=== PATIENT | male | born 1950 | race Caucasian/White ===

== ENCOUNTER 2018-09-17 00:33 | Inpatient (IN) | payer MEDICARE, OTHER ==
[~2018-09-17] VITALS: Ht 180.3 cm; Wt 98.0 kg
--- NOTE | 2018-09-17 00:39 | ED.ADGEN ---
Past History Past Medical History: CAD, CHF, COPD, Dementia, Depression, GERD, Hypertension , Schizophrenia, Other Past Surgical History: Appendectomy, Other Adult General Chief Complaint Chief Complaint ".. They sent me over to get checked out...".." I feeling depressed... ".. " I wanted to come here.. ".. " I feeling anxious... and angry..." HPI HPI Patient is a 68 year old male who presents with above hx and complaints of depression, suicidal ideations, delusions. Pt. is a pt. of [facility]. Pt sent to ED for evaluation prior to admission to [facility]. Pt. has hx of Bipolar, Schizophrenia, Anxiety, PTSD, MDD, CHF, COPD, GERD, and Stage III Renal Dz. Pt. has hx multiple medical disorders. Pt. recently had appendectomy 08/2018. Pt. primary is Dr. Ortiz. Review of Systems Review of Systems Pt. only complaints is SI, Angry, depression, anxiety Constitutional: Denies fever or chills [] Eyes: Denies change in visual acuity, redness, or eye pain [] HENT: Denies nasal congestion or sore throat [] Respiratory: Denies cough or shortness of breath [] Cardiovascular: No additional information not addressed in HPI [] GI: Denies abdominal pain, nausea, vomiting, bloody stools or diarrhea [] : Denies dysuria or hematuria [] Musculoskeletal: Denies back pain or joint pain [] Integument: Denies rash or skin lesions [] Neurologic: Denies headache, focal weakness or sensory changes [] Endocrine: Denies polyuria or polydipsia [] All other systems were reviewed and found to be within normal limits, except as documented in this note. Family History Family History Non-contributory Current Medications Current Medications Current Medications Medications (Trade) Dose Ordered Sig/Princess Start Time Stop Time Status Last Admin Dose Admin Furosemide (Lasix) 40 mg 1X ONCE 09/17/18 02:30 09/17/18 03:20 DC 09/17/18 02:47 40 MG Lorazepam (Ativan) 2 mg 1X ONCE 09/17/18 02:00 09/17/18 03:20 DC Allergies Allergies Allergies Coded Allergies Type Severity Reaction Last Updated Verified chlorpromazine Allergy Unknown 09/17/18 Yes haloperidol Allergy Unknown 09/17/18 Yes levofloxacin Allergy Unknown 09/17/18 Yes Physical Exam Physical Exam Constitutional:moderately acute emotional distress, non-toxic appearance. [] HENT: Normocephalic, atraumatic, bilateral external ears normal, oropharynx moist, no oral exudates, nose normal. [] Eyes: PERRLA, EOMI, conjunctiva normal, no discharge. [] Neck: Normal range of motion, no tenderness, supple, no stridor. [] Cardiovascular:Bradycardia Heart rate regular rhythm, no murmur []PMI to Lt Lungs & Thorax: Bilateral breath sounds clear to auscultation [] Abdomen: Bowel sounds decreased, soft,mild distention, staple line tenderness, appears to be healing well.., no masses, no pulsatile masses. Skin: Warm, dry, no erythema, no rash. [] Back: No tenderness, no CVA tenderness. [] Extremities: No tenderness, no cyanosis, no clubbing, ROM intact, no edema. [] Arthritic changes. Neurologic: Alert and oriented X 3, normal motor function, normal sensory function, no focal deficits noted. [] Psychologic: Affect depressed, anxious, angry, complaints of hallucinations, and thoughts of suicide, . judgement appears to have some insight, mood depressed. ] Current Patient Data Vital Signs Vital Signs Date Time Temp Pulse Resp B/P (MAP) Pulse Ox O2 Delivery O2 Flow Rate FiO2 09/17/18 00:33 98.3 60 20 97 Room Air Lab Results Laboratory Tests Test 09/17/18 00:37 09/17/18 01:07 Urine Collection Type Unknown Urine Color Yellow Urine Clarity Clear Urine pH 5.5 Urine Specific [place] 1.010 Urine Protein 100 mg/dl (NEG-TRACE) Urine Glucose (UA) Neg mg/dL (NEG) Urine Ketones (Stick) Neg mg/dL (NEG) Urine Blood Neg (NEG) Urine Nitrite Neg (NEG) Urine Bilirubin Neg (NEG) Urine Urobilinogen Dipstick 0.2 mg/dL (0.2 mg/dL) Urine Leukocyte Esterase Neg (NEG) Urine RBC 0 /HPF (0-2) Urine WBC Occ /HPF (0-4) Urine Squamous Epithelial Cells Occ /LPF Urine Bacteria 0 /HPF (0-FEW) Urine Opiates Screen Pos (NEG) Urine Methadone Screen Neg (NEG) Urine Barbiturates Neg (NEG) Urine Phencyclidine Screen Neg (NEG) Urine Amphetamine/Methamphetamine Neg (NEG) Urine Benzodiazepines Screen Neg (NEG) Urine Cocaine Screen Neg (NEG) Urine Cannabinoids Screen Neg (NEG) Urine Ethyl Alcohol Neg (NEG) White Blood Count 9.3 x10^3/uL (4.0-11.0) Red Blood Count 2.60 x10^6/uL (4.30-5.70) L Hemoglobin 7.9 g/dL (13.0-17.5) L Hematocrit 23.1 % (39.0-53.0) L Mean Corpuscular Volume 89 fL (79-100) Mean Corpuscular Hemoglobin 30 pg (25-35) Mean Corpuscular Hemoglobin Concent 34 g/dL (31-37) Red Cell Distribution Width 13.7 % (11.5-14.5) Platelet Count 301 x10^3/uL (140-400) Neutrophils (%) (Auto) 73 % (31-73) Lymphocytes (%) (Auto) 16 % (24-48) L Monocytes (%) (Auto) 7 % (0-9) Eosinophils (%) (Auto) 4 % (0-3) H Basophils (%) (Auto) 1 % (0-3) Neutrophils # (Auto) 6.8 x10^3uL (1.8-7.7) Lymphocytes # (Auto) 1.5 x10^3/uL (1.0-4.8) Monocytes # (Auto) 0.6 x10^3/uL (0.0-1.1) Eosinophils # (Auto) 0.4 x10^3/uL (0.0-0.7) Basophils # (Auto) 0.1 x10^3/uL (0.0-0.2) Erythrocyte Sedimentation Rate 50 (0-15) H Prothrombin Time 10.2 SEC (9.4-11.4) Prothrombin Time INR 1.0 (0.9-1.1) PTT 39 SEC (23-33) H Sodium Level 131 mmol/L (136-145) L Potassium Level 4.9 mmol/L (3.5-5.1) Chloride Level 96 mmol/L (98-107) L Carbon Dioxide Level 29 mmol/L (21-32) Anion Gap 6 (6-14) Blood Urea Nitrogen 30 mg/dL (8-26) H Creatinine 1.8 mg/dL (0.7-1.3) H Estimated GFR (Cockcroft-Gault) 37.5 Glucose Level 108 mg/dL (70-99) H Calcium Level 8.6 mg/dL (8.5-10.1) Magnesium Level 1.3 mg/dL (1.8-2.4) L Total Bilirubin 0.2 mg/dL (0.2-1.0) Direct Bilirubin 0.1 mg/dL (0.0-0.2) Aspartate Amino Transferase (AST) 16 U/L (15-37) Alanine Aminotransferase (ALT) 16 U/L (16-63) Alkaline Phosphatase 62 U/L (46-116) Creatine Kinase 143 U/L (39-308) Troponin I Quantitative < 0.017 ng/mL (0-0.055) LH-Gco-C-Type Natriuretic Peptide 1859 pg/mL (0-124) H Total Protein 6.7 g/dL (6.4-8.2) Albumin 3.2 g/dL (3.4-5.0) L Lipase 119 U/L (73-393) Salicylates Level 2.2 mg/dL (2.8-20.0) L Salicylate Last Dose Date Unknown Salicylate Last Dose Time Unknown Acetaminophen Level < 2.0 mcg/mL (10-30) L Acetaminophen Last Dose Date Unknown Acetaminophen Last Dose Time Unknown EKG EKG My interpretation of EKG shows a sinus rhythm at 62 bpm. There is some leftward axis with bundle branch block. No findings acute STEMI with contralateral changes.[] Radiology/Procedures Radiology/Procedures My interpretation of acute abdomen film shows borderline cardiomegaly. Basilar scarring and increased cephalization consistent with CHF. No free air under the diaphragm. Does have increased stool throughout his colon. Has findings of midline incision. There are arthritic changes. There are findings of old rib fractures on right and left. [] Course & Med Decision Making Course & Med Decision Making Pertinent Labs and Imaging studies reviewed. (See chart for details) Admit Dr. Landa- [facility], Consult to Dr. Jenkins- Medical Issues. Note delay in charting due to computer locked/ malfunction [] Final Impression Final Impression 1. Suicidal Ideation 2. Depression 3. Delusions/ Hallucinations 4. Schizophrenia 5. Anemia 7.9 6. CHF- BNP 1859 7. Malnutrition Alb. 3.2 8. Hx. PTSD 9. Hx. of Appendectomy 08/2018 10. Hypomagnesium 1,3 11. Anxiety Disorder 12. Elevated Bun/Creat. 30/1.8 Dragon Disclaimer Dragon Disclaimer This electronic medical record was generated, in whole or in part, using a voice recognition dictation system. JEISON CORTES MD Sep 17, 2018 00:39
[2018-09-17] MEDS ORDERED: ACET500T68 PO (01:13)
[2018-09-17] MEDS ORDERED: CLON1PAT3 TD (01:13)
[2018-09-17] MEDS ORDERED: ASPI1CPM6 PO (01:13)
[2018-09-17] MEDS ORDERED: CLON0.1T PO (01:13)
[2018-09-17] MEDS ORDERED: NICO1PAT25 TD (01:13)
[2018-09-17] MEDS ORDERED: TRAZ-86 PO (01:13)
[2018-09-17] MEDS ORDERED: CARV6.25 PO (01:13)
[2018-09-17] MEDS ORDERED: RISP1TAB43 PO (01:13)
[2018-09-17] MEDS ORDERED: PANT40TA3 PO (01:13)
[2018-09-17] MEDS ORDERED: MEMA10TA PO (01:13)
[2018-09-17] MEDS ORDERED: DULO60CA6 PO (01:13)
[2018-09-17] MEDS ORDERED: LEVE500T56 PO (01:13)
[2018-09-17] MEDS ORDERED: FLUT1AER IH (01:13)
[2018-09-17] MEDS ORDERED: HYDR-3165 PO (01:13)
[2018-09-17] MEDS ORDERED: NITR0.4T22 SL (01:13)
[2018-09-17] MEDS ORDERED: ESCITALOPRAM OX20 MG PO (01:13)
[2018-09-17] MEDS ORDERED: TRAZ-85 PO (01:13)
[2018-09-17] MEDS ORDERED: PATI8.4P PO (01:13)
[2018-09-17] MEDS ORDERED: ALBU2.5V5 NEB (01:13)
[2018-09-17] MEDS ORDERED: OLAN15TA3 PO (01:13)
[2018-09-17] MEDS ORDERED: TRAZ150T49 PO (01:13)
[2018-09-17] MEDS ORDERED: BENZ100C PO (01:13)
[2018-09-17 01:36] LABS: BASO # 0.1 x10^3/uL (0.0-0.2); BASO % 1 % (0-3); EOS # 0.4 x10^3/uL (0.0-0.7); EOS % 4 % (0-3); HEMATOCRIT 23.1 % (39.0-53.0); HEMOGLOBIN 7.9 g/dL (13.0-17.5); LYMPH # 1.5 x10^3/uL (1.0-4.8); LYMPH % 16 % (24-48); MEAN CORPUSCULAR HEMOGLOBIN 30 pg (25-35); MEAN CORPUSCULAR HGB CONC 34 g/dL (31-37); MEAN CORPUSCULAR VOLUME 89 fL (79-100); MONO # 0.6 x10^3/uL (0.0-1.1); MONO % 7 % (0-9); NEUT # 6.8 x10^3uL (1.8-7.7); NEUT % 73 % (31-73); PLATELET COUNT 301 x10^3/uL (140-400); RED CELL DISTRIBUTION WIDTH 13.7 % (11.5-14.5); WHITE BLOOD COUNT 9.3 x10^3/uL (4.0-11.0)
[2018-09-17 01:45] LABS: BACTERIA,URINE 0 /HPF (0-FEW); BILIRUBIN,URINE NEG (NEG); CLARITY,URINE CLEAR; COLOR,URINE YELLOW; GLUCOSE,URINE NEG (NEG); NITRITE,URINE NEG (NEG); RBC,URINE 0 /HPF (0-2); SQUAMOUS EPITHELIAL CELL,UR OCC /LPF; UROBILINOGEN,URINE 0.2 mg/dL (0.2 mg/dL); WBC,URINE OCC /HPF (0-4)
[2018-09-17 01:46] LABS: BARBITURATES NEG (NEG); BENZODIAZEPINES NEG (NEG); CANNABINOIDS NEG (NEG); COCAINE NEG (NEG); METHADONE NEG (NEG); OPIATES POS (NEG); PHENCYCLIDINE NEG (NEG)
[2018-09-17 01:47] LABS: AMPHETAMINE/METHAMPHETAMINE NEG (NEG)
[2018-09-17 01:55] LABS: ALBUMIN 3.2 g/dL (3.4-5.0); CALCIUM 8.6 mg/dL (8.5-10.1); CREATININE 1.8 mg/dL (0.7-1.3); DIRECT BILIRUBIN 0.1 mg/dL (0.0-0.2); GFR 37.5; MAGNESIUM 1.3 mg/dL (1.8-2.4); POTASSIUM 4.9 mmol/L (3.5-5.1); TOTAL BILIRUBIN 0.2 mg/dL (0.2-1.0); TOTAL PROTEIN 6.7 g/dL (6.4-8.2)
[2018-09-17] MEDS ORDERED: LORazepam 1 MG TABLET PO ONE (02:00)
[2018-09-17 02:01] LABS: ACETAMIN < 2.0 mcg/mL (10-30); SALIC 2.2 mg/dL (2.8-20.0)
[2018-09-17] MEDS ORDERED: FUROSEMIDE 40 MG TABLET PO ONE (02:30)
[2018-09-17 02:37] LABS: SEDIMENTATION RATE 50 (0-15)
[2018-09-17] MEDS ORDERED: MAGNESIUM HYDROXIDE 2,400 MG/30 ML ORAL.SUSP. PO ONE (03:00)
[2018-09-17] MEDS ORDERED: METHYL SALICYLATE/MENTHOL TOPICAL OINTMENT 29GM TUBE. TP PRN (03:30)
[2018-09-17] MEDS ORDERED: cloNIDine HCL 0.1 MG TABLET PO PRN (03:30)
[2018-09-17] MEDS ORDERED: BENZONATATE 100 MG CAPSULE. PO PRN (03:30)
[2018-09-17] MEDS ORDERED: NITROGLYCERIN SUBLINGUAL 0.4 MG BOTTLE OF 25. SL PRN (03:30)
[2018-09-17] MEDS ORDERED: ACETAMINOPHEN 500 MG TABLET PO PRN (03:30)
[2018-09-17] MEDS ORDERED: MAGNESIUM HYDROXIDE 2,400 MG/30 ML ORAL.SUSP. PO PRN (03:30)
[2018-09-17] MEDS ORDERED: traZODone 50 MG TABLET. PO PRN (03:30)
[2018-09-17] MEDS ORDERED: MAG HYDROX/AL HYDROX/SIMETH 30 ML ORAL.SUSP PO PRN (03:30)
[2018-09-17 04:20] VITALS: BP 178/80
[2018-09-17] MEDS: ALBUTEROL SULFATE 2.5 MG/3 ML NEBU. NEB SCH ×4 (08:00→20:16)
[2018-09-17] MEDS: BUDESONIDE 0.5 MG/2 ML NEBU NEB SCH ×2 (08:00→20:16)
--- NOTE | 2018-09-17 08:06 | RAD ---
EXAM: Frontal view of the chest, AP views of the abdomen in upright and supine positions. CLINICAL INDICATION: abdominal pain, nausea and vomiting COMPARISON: None. FINDINGS and IMPRESSION: The heart is not enlarged. Mediastinal and hilar contours are normal. Bilateral lung base patchy airspace opacities are seen, possibly atelectasis or consolidation. No pleural effusion or pneumothorax. Old posterolateral right rib fractures are seen (10 and 11). No abnormal small or large bowel dilatation. Large volume colonic stool content. Midline surgical skin luis miguel are seen No abnormal soft tissue mass effect. No suspicious calcifications are seen. No free intraperitoneal gas. Electronically signed by: James Gómez MD (09/17/2018 8:02 AM) [facility]
[2018-09-17] MEDS: DULoxetine HCL 60 MG CAPSULE.DR PO SCH (08:11)
[2018-09-17] MEDS: NICOTINE 14MG PATCH. TD SCH (08:11)
[2018-09-17] MEDS: NYSTATIN TOPICAL POWDER 15GM BOTTLE. TP SCH ×2 (08:11→22:02)
[2018-09-17] MEDS: PANTOPRAZOLE 40 MG TABLET. PO SCH (08:12)
[2018-09-17] MEDS: CARVEDILOL 6.25 MG TABLET PO SCH ×2 (08:12→17:47)
[2018-09-17] MEDS: risperiDONE 1 MG TABLET. PO SCH ×2 (08:12→19:40)
[2018-09-17] MEDS: CITALOPRAM 20 MG TABLET. PO SCH (08:12)
[2018-09-17] MEDS: ASPIRIN/DIPYRIDAMOLE 200/25MG CAP.ER.12H PO SCH ×2 (08:12→19:53)
[2018-09-17] MEDS: levETIRAcetam 500 MG TABLET PO SCH ×2 (08:12→19:40)
[2018-09-17] MEDS ORDERED: NICOTINE 21MG PATCH. TD SCH (09:00)
[2018-09-17] MEDS: NON FORMULARY ITEM (Patiromer Calcium Sorbitex (Veltassa) 8.4 GM) PO SCH (09:00)
[2018-09-17] MEDS ORDERED: NON FORMULARY ITEM (Fluticasone/Vilanterol (Breo Ellipta 100-25 Mcg Inh) 1 PUFF) IH SCH (09:00)
[2018-09-17] MEDS: HYDROcodone/APAP 5/325MG 1 TAB TABLET PO PRN ×2 (10:19→17:48)
[2018-09-17] MEDS ORDERED: ALBUTEROL SULFATE 2.5 MG/3 ML NEBU. NEB SCH (12:00)
--- NOTE | 2018-09-17 14:32 | EKG ---
[address] [address] Test Date: 2018-09-17 Test Time: 00:49:09 Pat Name: CHAGO SNYDER Department: Room: Gender: M Car Wiper: : [id number] Requested By: JEISON CORTES Order Number: [id number] Reading MD: Kosta Lovell Measurements Intervals [place] Rate: 62 P: 53 [place]: 142 QRS: -28 QRSD: 138 T: 62 QT: 408 QTc: 416 Interpretive Statements SINUS RHYTHM LEFTWARD AXIS RIGHT BUNDLE BRANCH BLOCK ABNORMAL ECG Electronically Signed On 09-17-2018 14:32:01 INSULATION BLOWER by Kosta Lovell
[2018-09-17 15:56] VITALS: BP 168/81
[2018-09-17 17:12] LABS: THYROXINE 7.1 ug/dL (4.5-12.0)
[2018-09-17] MEDS: MEMANTINE 10 MG TABLET. PO SCH (19:40)
[2018-09-17] MEDS: traZODone 150 MG TABLET. PO SCH (19:40)
[2018-09-17] MEDS: OLANZapine 7.5 MG TABLET PO SCH (19:40)
[2018-09-17] MEDS: MAGNESIUM OXIDE 400 MG TABLET PO SCH (19:40)
[2018-09-17] MEDS: traZODone 100 MG TABLET. PO SCH (19:44)
[2018-09-17 20:12] LABS: HEMOGLOBIN A1C 5.7 % (4.8-5.6)
--- NOTE | 2018-09-17 23:46 | CONS ---
DATE OF CONSULTATION: 09/17/2018 REASON FOR CONSULTATION: Medical management. HISTORY OF PRESENT ILLNESS: The patient is a 68-year-old male patient, a resident at [facility], who was admitted on account of making suicidal ideation statements and threatening to kill care home staff, all this in a background of schizoaffective disorder with mixed episode. The patient apparently had appendectomy done on 08/21/2018 and apparently was found to have underlying malignancy, for which he was supposed to see a surgeon at the [facility] on 09/22/2018; however, the appointment was postponed to 10/13/2018. However, the surgical team recommended that we could take the luis miguel out. When I questioned him, he denied any complaint. PAST MEDICAL HISTORY: Significant for congestive heart failure, COPD, gastroesophageal reflux disease, chronic kidney disease stage 3. He has also hyperkalemia, anemia, obstructive sleep apnea, epilepsy, hypertension, psoriasis, vitamin D deficiency. PAST PSYCHIATRIC HISTORY: Significant for schizophrenia bipolar, anxiety disorder, posttraumatic stress disorder and major depressive disorder. PAST SURGICAL HISTORY: Significant for acute abdomen, exploratory laparotomy and appendectomy. FAMILY HISTORY: Unremarkable. SOCIAL HISTORY: He is a resident at [facility]. He does not smoke, drink alcohol or recreational drug. REVIEW OF SYSTEMS: As per history of present illness. ALLERGIES: HE IS ALLERGIC TO CHLORPROMAZINE, HALOPERIDOL, LEVOFLOXACIN and THIOTHIXENE. MEDICATIONS: He is currently on following medications: He is on albuterol sulfate 2.5 mg by nebulizer 4 times a day, Nicoderm patch 14 mg topically daily, clonidine TTS 0.3 mg transdermal patch every once a week and clonidine 0.1 mg every 4 hours as needed, nitroglycerin 0.4 mg sublingually every 5 minutes x 3 for chest pain. He is on aspirin, dipyridamole 25/200 twice a day, carvedilol 6.25 mg twice a day with meals, hydrocodone/APAP 5/325 one tablet every 6 hours, Tylenol 650 mg every 6 hours, levetiracetam 500 mg twice a day, duloxetine for Cymbalta 60 mg daily, escitalopram oxalate 20 mg daily, trazodone 100 mg at bedtime, trazodone 150 mg at bedtime and trazodone 50 mg p.o. every 8 hours as needed. He is on olanzapine 15 mg at bedtime, risperidone 1 mg p.o. b.i.d., Namenda 10 mg at bedtime. He is on Veltassa 8.4 grams p.o. daily, benzonatate 100 mg every 8 hours, Breo Ellipta 1 puff once a day, Protonix 40 mg once a day. PHYSICAL EXAMINATION: GENERAL: When I examined him this afternoon, he was resting, slightly propped up in bed and is in no apparent respiratory distress. He was pale, not jaundice, cyanosis, or thyromegaly. No jugular venous distension. No limb edema. VITAL SIGNS: His heart rate was 80, blood pressure was 111/75, temperature was 98, respiratory rate was 18 and oxygen saturation was 99% on room air. HEAD, EYES, EARS, NOSE AND THROAT: Showed he is normocephalic, atraumatic. NECK: Supple. HEART: Showed normal first and second heart sounds. No gallop, rub or murmur. CHEST: Clear to auscultation. No crepitation or rhonchi. ABDOMEN: Distended, soft, nontender. No guarding or rigidity. No organomegaly. All hernial orifice intact. Bowel sounds normal. NEUROLOGIC: He was awake, alert, responding appropriately. All cranial nerves intact. He moves all extremities without difficulty, ambulates without assistance or assistive devices. LABORATORY WORK: Showed his white cell count to be 9300, hemoglobin 7.9, hematocrit 23, MCV 89 and platelet count of 301,000 with normal manual differential. His chemistry showed he has a low sodium with a serum sodium of 131, potassium 4.9, chloride 96, bicarbonate 29, anion gap of 6, BUN 30, creatinine 1.8, estimated GFR was 37 mL per minute, his glucose 108, calcium was 8.6, magnesium was 1.3. Total protein was 0.2. Total bilirubin, AST, ALT, alkaline phosphatase were normal. His total protein was 6.7, albumin was 3.2. His prothrombin time was 10.2, INR of 1, aPTT was 59. Urinalysis showed the urine was yellow, clear with a pH of 5.5, specific gravity of 1.010. There was a small amount of protein. The urine was negative for glucose, ketones, blood, nitrite and leukocyte esterase. There are no rbc's, no wbc's, and no bacteria. His toxicology screen showed that he is positive for opiates, but negative for all other drugs. He underwent acute abdomen series, which basically showed that the heart is not enlarged, mediastinal hilar contours are normal, bilateral lung base patchy, airspace opacities are seen, possibly atelectasis or consolidation, no pleural effusion or pneumothorax. Old posterolateral right rib fractures are seen. The patient has no abnormal small or large bowel dilatation, large volume colonic stool content midline, surgical skin luis miguel are seen. No abnormal soft tissue and mass effect. No suspicious calcifications are seen. No free intraperitoneal fluid or gas. So, all in all, the patient seems to be stable except that in his lab work, he has mild hyponatremia and marked hypomagnesemia. He has chronic kidney disease, creatinine 1.8 and mild protein-calorie malnutrition. He has also normochromic normocytic anemia. PLAN: My plan is to start him on magnesium oxide 400 mg 3 times a day. We will monitor his labs closely. He is also on multiple SSRI and newer antidepressant that might be contributing to his low hyponatremia. I do not see that he is on any diuretics that might explain why he is hypokalemia. Thank you, Dr. Landa for allowing me to participate in the care of this patient. CARLTON UGALDE MD DR: ARLYN/demetrius JOB#: [id number] / [id number]
[2018-09-18] MEDS: HYDROcodone/APAP 5/325MG 1 TAB TABLET PO PRN ×3 (00:27→17:06)
[2018-09-18 05:29] VITALS: BP 167/69
[2018-09-18] MEDS: ALBUTEROL SULFATE 2.5 MG/3 ML NEBU. NEB SCH ×4 (05:54→20:48)
[2018-09-18 06:43] LABS: BASO # 0.1 x10^3/uL (0.0-0.2); BASO % 0 % (0-3); EOS # 0.2 x10^3/uL (0.0-0.7); EOS % 1 % (0-3); HEMOGLOBIN 8.1 g/dL (13.0-17.5); LYMPH # 0.8 x10^3/uL (1.0-4.8); LYMPH % 6 % (24-48); MEAN CORPUSCULAR HEMOGLOBIN 30 pg (25-35); MEAN CORPUSCULAR HGB CONC 34 g/dL (31-37); MEAN CORPUSCULAR VOLUME 89 fL (79-100); MONO # 0.5 x10^3/uL (0.0-1.1); MONO % 4 % (0-9); NEUT # 11.2 x10^3uL (1.8-7.7); NEUT % 88 % (31-73); PLATELET COUNT 310 x10^3/uL (140-400); RED BLOOD COUNT 2.69 x10^6/uL (4.30-5.70); RED CELL DISTRIBUTION WIDTH 13.4 % (11.5-14.5); WHITE BLOOD COUNT 12.8 x10^3/uL (4.0-11.0)
[2018-09-18 06:55] LABS: CALCIUM 8.2 mg/dL (8.5-10.1); CREATININE 1.8 mg/dL (0.7-1.3); GFR 37.5; POTASSIUM 5.2 mmol/L (3.5-5.1)
[2018-09-18] MEDS: NICOTINE 14MG PATCH. TD SCH (07:50)
[2018-09-18] MEDS: PANTOPRAZOLE 40 MG TABLET. PO SCH (07:50)
[2018-09-18] MEDS: CARVEDILOL 6.25 MG TABLET PO SCH ×2 (07:51→17:53)
[2018-09-18] MEDS: risperiDONE 1 MG TABLET. PO SCH ×2 (07:51→19:18)
[2018-09-18] MEDS: MAGNESIUM OXIDE 400 MG TABLET PO SCH ×3 (07:51→19:18)
[2018-09-18] MEDS: CITALOPRAM 20 MG TABLET. PO SCH (07:51)
[2018-09-18] MEDS: NON FORMULARY ITEM (Patiromer Calcium Sorbitex (Veltassa) 8.4 GM) PO SCH (07:51)
[2018-09-18] MEDS: levETIRAcetam 500 MG TABLET PO SCH ×2 (07:51→19:18)
[2018-09-18] MEDS: ASPIRIN/DIPYRIDAMOLE 200/25MG CAP.ER.12H PO SCH ×2 (07:51→19:18)
[2018-09-18] MEDS: DULoxetine HCL 60 MG CAPSULE.DR PO SCH (07:51)
[2018-09-18] MEDS: NYSTATIN TOPICAL POWDER 15GM BOTTLE. TP SCH ×2 (07:52→19:18)
[2018-09-18] MEDS: BUDESONIDE 0.5 MG/2 ML NEBU NEB SCH ×2 (10:20→20:48)
--- NOTE | 2018-09-18 13:49 | PSYEV ---
DATE OF SERVICE: 09/17/2018 IDENTIFICATION: This 68-year-old male was admitted to unit 6 from [facility] because of threatening to kill himself and others, and then he chose to come to [facility]. CHIEF COMPLAINT: "I want to be in a safe place. I learned [facility] is good to stay. The patient also admits he had bad experience in the past from going to different hospital. The patient denies that he has any major problems." HISTORY OF PRESENT ILLNESS: The patient has a long history of psychiatric illness, diagnosis of schizophrenia, paranoid type and there has been multiple hospitalizations depending 5 years in [facility], multiple hospitalizations to [facility], he is also in [facility], [facility] in [place]. The patient states he has been a resident at the [facility] for 3 months. The patient apparently is not happy staying there. The patient is not admitting to having any visual or auditory hallucinations at this time, but he is very paranoid and suspicious. The patient also states he was diagnosed with a bipolar disorder, PTSD. The patient is also upset because recently he had an appendectomy, found out he has cancer and he has further followups and also is getting more upset, worried. The patient does admit to having problems with sleep. No change in his appetite. PAST PSYCHIATRIC HISTORY: Multiple hospitalizations in 1971. He has been gone through several stays in the hospital for long-term treatments up to 5 years in [facility]. The patient also has been at different nursing homes, not able to take care of his needs. CURRENT MEDICATIONS: Include citalopram, Cymbalta, olanzapine, risperidone, and trazodone. PAST MEDICAL HISTORY: The patient has a history of CHF, COPD, GERD, chronic kidney disease stage 3, hyperkalemia, anemia, obstructive sleep apnea, epilepsy, hypertension, psoriasis. CURRENT MEDICATIONS: Include aspirin, carvedilol, clonidine, Breo spray, Keppra, Namenda. He is also on nicotine patch. PSYCHOSOCIAL HISTORY: The patient unable to give much information from the past, stating there is psychiatric illness in the whole family. Father and brother both diagnosed with schizophrenia, paranoid type. The patient states she moved around the different states because his father was in the service. The patient has been in [place] for the past 30 years. The patient dropped out in the seventh grade, had difficulty in school. The patient is single. The patient denies of any abuse as a child. The patient denies any alcohol abuse at this time. MENTAL STATUS EXAMINATION: The patient appears to be of stated age, in ____ withdrawn. Poor eye contact. His behavior was appropriate except he was somewhat rigid. Decreased psychomotor activity, slow mentation. Speech was clear, monotone, decreased rate and rhythm. His affect ____. He is not depressed, but anxious, paranoid. Also having difficulty with his thinking, most likely disorganization of his thinking, having difficulty holding a conversation. The patient also is having issues with impulse control, has been aggressive, threatening staff that he will kill himself. He is oriented to his surroundings. His memory is not testable. The patient is distracted easily. The patient is exhibiting poor judgment, poor self-concern. The patient appears to be functioning on borderline level of intelligence. ASSETS: Fairly good health for his age. He is able to communicate, able to walk. WEAKNESSES: The patient has a long history of psychiatric illness. Also, noncompliant with the treatment. He has moved from different places, has been different placements, different [facility] hospitals. The patient's symptoms are not chronic. INITIAL TREATMENT PLAN: The patient is [facility]. The patient will go through lab work and also be seen by the primary care for physical exam. The patient will be seen by the psychiatrist daily. The patient will be encouraged to return to normal activities including individual therapy, group therapy, activity therapy. The patient will continue on his current medications including Keppra 500 mg b.i.d., Risperdal 1 mg b.i.d., citalopram 40 mg daily, Cymbalta 60 mg daily, carvedilol 6.25 mg b.i.d., albuterol inhaler, Protonix 40 mg daily. He is also on hydrocodone p.r.n. q.6 hours, clonidine 0.1 mg q.4 hours p.r.n. for hypertension, trazodone 50 mg at night p.r.n. for sleep. ESTIMATED LENGTH OF STAY: 7-10 days. JOHN STEWART MD DR: SWATI/demetrius JOB#: [id number] / [id number]
[2018-09-18 15:31] VITALS: BP 134/64
[2018-09-18] MEDS: OLANZapine 7.5 MG TABLET PO SCH (19:18)
[2018-09-18] MEDS: MEMANTINE 10 MG TABLET. PO SCH (19:18)
[2018-09-18] MEDS: traZODone 150 MG TABLET. PO SCH (19:18)
--- NOTE | 2018-09-18 19:23 | PN ---
DATE: 09/18/2018 SUBJECTIVE: The patient was seen today, met with the staff, chart reviewed. The patient has adjusted fairly well since admission. The patient has not presented with any major behavior problems and not made any threats towards the staff. The staff also reports he has been fairly cooperative and medication compliant. OBJECTIVE: VITAL SIGNS: Temperature 98.1, blood pressure 167/69, pulse 86, respirations 16, O2 sat 93%. Slept about 5 hours last night. The patient's appetite is fair. MEDICATIONS: Reviewed. Currently on clonidine patch weekly, trazodone 100 mg at night, olanzapine 15 mg at night, Namenda 10 mg at night, Keppra 500 mg b.i.d., Risperdal 1 mg b.i.d., citalopram 40 mg daily, Cymbalta 60 mg daily. The patient is also on carvedilol 6.25 mg b.i.d., albuterol inhaler, Protonix, nitroglycerin, trazodone 50 mg at night p.r.n. for sleep. LABORATORY DATA: The patient's lab reviewed. The patient's RBC was 2.69, white cell count was 12.8. The patient's hemoglobin A1c was 5.7. Sodium 133, potassium 5.2, BUN 31, creatinine 1.8, glucose 121, iron 26, TIBC 234, iron saturation 11. HOSPITAL COURSE: The patient is not presenting with any major physical problems. The patient was seen by Dr. Damion Jenkins and apparently, he was started on magnesium oxide 400 mg 3 times daily. The patient's hyponatremia will be monitored. ASSESSMENT: Schizophrenia, paranoid, chronic; post-traumatic stress disorder and history of major depression, single episode. Continue with the current treatment protocol. CLINTON LEBRON MD DR: ERIC/demetrius JOB#: [id number] / [id number]
[2018-09-18] MEDS: traZODone 100 MG TABLET. PO SCH (19:24)
[2018-09-19 05:25] VITALS: BP 117/72
[2018-09-19] MEDS: ALBUTEROL SULFATE 2.5 MG/3 ML NEBU. NEB SCH ×4 (05:46→19:55)
[2018-09-19] MEDS: ASPIRIN/DIPYRIDAMOLE 200/25MG CAP.ER.12H PO SCH ×2 (08:19→20:41)
[2018-09-19] MEDS: MAGNESIUM OXIDE 400 MG TABLET PO SCH ×3 (08:19→20:42)
[2018-09-19] MEDS: levETIRAcetam 500 MG TABLET PO SCH ×2 (08:19→20:42)
[2018-09-19] MEDS: NICOTINE 14MG PATCH. TD SCH (08:19)
[2018-09-19] MEDS: CITALOPRAM 20 MG TABLET. PO SCH (08:19)
[2018-09-19] MEDS: PANTOPRAZOLE 40 MG TABLET. PO SCH (08:20)
[2018-09-19] MEDS: risperiDONE 1 MG TABLET. PO SCH ×2 (08:20→20:42)
[2018-09-19] MEDS: NYSTATIN TOPICAL POWDER 15GM BOTTLE. TP SCH ×2 (08:20→20:42)
[2018-09-19] MEDS: NON FORMULARY ITEM (Patiromer Calcium Sorbitex (Veltassa) 8.4 GM) PO SCH (08:20)
[2018-09-19] MEDS: DULoxetine HCL 60 MG CAPSULE.DR PO SCH (08:22)
[2018-09-19] MEDS: CARVEDILOL 6.25 MG TABLET PO SCH ×2 (08:22→17:29)
[2018-09-19] MEDS: HYDROcodone/APAP 5/325MG 1 TAB TABLET PO PRN ×2 (09:49→15:45)
[2018-09-19] MEDS: BUDESONIDE 0.5 MG/2 ML NEBU NEB SCH ×2 (10:07→19:56)
[2018-09-19 17:04] VITALS: BP 134/80
[2018-09-19] MEDS: traZODone 100 MG TABLET. PO SCH (20:42)
[2018-09-19] MEDS: OLANZapine 7.5 MG TABLET PO SCH (20:42)
[2018-09-19] MEDS: traZODone 150 MG TABLET. PO SCH (20:42)
[2018-09-19] MEDS: MEMANTINE 10 MG TABLET. PO SCH (20:42)
--- NOTE | 2018-09-19 20:52 | PN ---
DATE: 09/19/2018 SUBJECTIVE: The patient was seen today, met with the staff, chart reviewed. The patient continues to have problems, mostly social withdrawal, unsteady gait and increased anxiety. OBJECTIVE: VITAL SIGNS: Temperature 97.7, blood pressure 117/72, pulse 68, respirations 20, O2 sat 94%. GENERAL: Slept about 8 hours last night. The patient's appetite has improved. CURRENT MEDICATIONS: The patient is currently on trazodone, olanzapine, Namenda, Keppra, Risperdal, citalopram, Cymbalta, and trazodone 50 mg at night p.r.n. for sleep. LABORATORY DATA: The patient's lab reviewed. ASSESSMENT: Schizophrenia, paranoid, chronic; posttraumatic stress disorder, also history of major depression, single episode. PLANS: Continue with the current treatment. CLINTON LEBRON MD DR: ERIC/demetrius JOB#: [id number] / [id number]
[2018-09-20] MEDS: ALBUTEROL SULFATE 2.5 MG/3 ML NEBU. NEB SCH ×4 (05:44→21:51)
[2018-09-20 06:25] VITALS: BP 155/74
[2018-09-20] MEDS: risperiDONE 1 MG TABLET. PO SCH ×2 (07:59→19:35)
[2018-09-20] MEDS: NICOTINE 14MG PATCH. TD SCH (07:59)
[2018-09-20] MEDS: CARVEDILOL 6.25 MG TABLET PO SCH ×2 (07:59→17:23)
[2018-09-20] MEDS: levETIRAcetam 500 MG TABLET PO SCH ×2 (07:59→19:35)
[2018-09-20] MEDS: PANTOPRAZOLE 40 MG TABLET. PO SCH (08:00)
[2018-09-20] MEDS: CITALOPRAM 20 MG TABLET. PO SCH (08:00)
[2018-09-20] MEDS: MAGNESIUM OXIDE 400 MG TABLET PO SCH ×3 (08:00→19:35)
[2018-09-20] MEDS: ASPIRIN/DIPYRIDAMOLE 200/25MG CAP.ER.12H PO SCH ×2 (08:00→19:34)
[2018-09-20] MEDS: DULoxetine HCL 60 MG CAPSULE.DR PO SCH (08:00)
[2018-09-20] MEDS: NYSTATIN TOPICAL POWDER 15GM BOTTLE. TP SCH ×2 (08:01→19:36)
[2018-09-20] MEDS: NON FORMULARY ITEM (Patiromer Calcium Sorbitex (Veltassa) 8.4 GM) PO SCH (08:05)
[2018-09-20] MEDS ORDERED: cloNIDine TTS-3 1 PATCH PATCH TD SCH (09:00)
[2018-09-20] MEDS: BUDESONIDE 0.5 MG/2 ML NEBU NEB SCH ×2 (12:21→21:51)
[2018-09-20] MEDS: HYDROcodone/APAP 5/325MG 1 TAB TABLET PO PRN ×2 (12:38→20:32)
[2018-09-20] MEDS ORDERED: LACTULOSE 20 GM/30 ML SOLUTION. PO ONE (13:15)
[2018-09-20] MEDS ORDERED: SODIUM POLYSTYRENE SULFONATE 15 GM/60 ML ORAL.SUSP. PO ONE (13:15)
[2018-09-20 16:05] VITALS: BP 160/80
[2018-09-20] MEDS: traZODone 100 MG TABLET. PO SCH (19:35)
[2018-09-20] MEDS: MEMANTINE 10 MG TABLET. PO SCH (19:35)
[2018-09-20] MEDS: traZODone 150 MG TABLET. PO SCH (19:35)
[2018-09-20] MEDS: OLANZapine 7.5 MG TABLET PO SCH (19:36)
--- NOTE | 2018-09-21 00:05 | PN ---
DATE: 09/20/2018 SUBJECTIVE: The patient was seen today, met with the staff, chart reviewed. The patient continues to show improvement, has some unsteady gait. Able to walk with the walker. OBJECTIVE: VITAL SIGNS: Temperature 92.8, blood pressure 155/74, pulse 70, respirations 16, O2 sat 93%. Slept about 6 hours last night. CURRENT MEDICATIONS: The patient's current medication includes trazodone, olanzapine, Namenda, Keppra, Risperdal, citalopram, Cymbalta, and trazodone 50 mg at night. The patient's lab reviewed. The patient is not having any side effects. ASSESSMENT: Schizophrenia, paranoid, chronic, posttraumatic stress disorder, history of major depression, single episode. PLAN: Continue with the treatment. CLINTON LEBRON MD DR: ERIC/demetrius JOB#: [id number] / [id number]
[2018-09-21 05:19] VITALS: BP 161/82
[2018-09-21] MEDS: ALBUTEROL SULFATE 2.5 MG/3 ML NEBU. NEB SCH ×4 (05:20→20:17)
[2018-09-21 07:18] LABS: CALCIUM 9.1 mg/dL (8.5-10.1); CREATININE 1.6 mg/dL (0.7-1.3); GFR 42.9; POTASSIUM 5.1 mmol/L (3.5-5.1)
[2018-09-21] MEDS: MAGNESIUM OXIDE 400 MG TABLET PO SCH ×3 (07:56→20:16)
[2018-09-21] MEDS: CITALOPRAM 20 MG TABLET. PO SCH (07:56)
[2018-09-21] MEDS: DULoxetine HCL 60 MG CAPSULE.DR PO SCH (07:56)
[2018-09-21] MEDS: risperiDONE 1 MG TABLET. PO SCH ×2 (07:57→20:16)
[2018-09-21] MEDS: CARVEDILOL 6.25 MG TABLET PO SCH ×2 (07:57→17:05)
[2018-09-21] MEDS: levETIRAcetam 500 MG TABLET PO SCH ×2 (07:57→20:16)
[2018-09-21] MEDS: NICOTINE 14MG PATCH. TD SCH (07:57)
[2018-09-21] MEDS: ASPIRIN/DIPYRIDAMOLE 200/25MG CAP.ER.12H PO SCH ×2 (07:57→20:16)
[2018-09-21] MEDS: PANTOPRAZOLE 40 MG TABLET. PO SCH (07:57)
[2018-09-21] MEDS: NYSTATIN TOPICAL POWDER 15GM BOTTLE. TP SCH ×2 (07:58→20:17)
[2018-09-21] MEDS: BUDESONIDE 0.5 MG/2 ML NEBU NEB SCH ×2 (08:00→20:17)
[2018-09-21] MEDS: NON FORMULARY ITEM (Patiromer Calcium Sorbitex (Veltassa) 8.4 GM) PO SCH (09:00)
[2018-09-21] MEDS: HYDROcodone/APAP 5/325MG 1 TAB TABLET PO PRN (15:23)
[2018-09-21 15:57] VITALS: BP 136/85
[2018-09-21] MEDS ORDERED: guaiFENesin DM 200MG/20MG 10 ML SYRUP PO PRN (16:15)
[2018-09-21] MEDS: MEMANTINE 10 MG TABLET. PO SCH (20:16)
[2018-09-21] MEDS: traZODone 150 MG TABLET. PO SCH (20:16)
[2018-09-21] MEDS: OLANZapine 7.5 MG TABLET PO SCH (20:16)
[2018-09-21] MEDS: traZODone 100 MG TABLET. PO SCH (20:16)
--- NOTE | 2018-09-22 00:05 | PN ---
DATE: 09/21/2018 SUBJECTIVE: The patient continues to show improvement. He is able to walk with a walker. OBSERVATION: VITAL SIGNS: Temperature 98.2, blood pressure 161/82, pulse 68. GENERAL: Slept about 4 hours last night. The patient is currently not presenting with any physical problems, not having any side effects. MEDICATIONS: The patient's current medications include trazodone, olanzapine, Namenda, Keppra, Risperdal, citalopram, Cymbalta, and trazodone 50 mg at night. LABORATORY DATA: The patient's lab reviewed. ASSESSMENT: Schizophrenia, paranoid, chronic, posttraumatic stress disorder, history of major depression single episode. CLINTON LEBRON MD DR: ERIC/demetrius JOB#: [id number] / [id number]
[2018-09-22] MEDS ORDERED: BUDE0.5A11 IH (02:02)
[2018-09-22] MEDS ORDERED: CITA40TA5 PO (02:03)
[2018-09-22] MEDS ORDERED: MAG-77 PO (02:04)
[2018-09-22] MEDS ORDERED: MAGN400T22 PO (02:05)
[2018-09-22] MEDS ORDERED: NYST15CR TP (02:05)
[2018-09-22] MEDS ORDERED: MAGN2400 PO (02:06)
[2018-09-22] MEDS ORDERED: METH29OI TP (02:08)
[2018-09-22] MEDS: ALBUTEROL SULFATE 2.5 MG/3 ML NEBU. NEB SCH ×2 (05:13→11:39)
[2018-09-22 05:29] VITALS: BP 170/79
[2018-09-22] MEDS: HYDROcodone/APAP 5/325MG 1 TAB TABLET PO PRN ×2 (05:42→12:19)
[2018-09-22] MEDS: CITALOPRAM 20 MG TABLET. PO SCH (08:26)
[2018-09-22] MEDS: ASPIRIN/DIPYRIDAMOLE 200/25MG CAP.ER.12H PO SCH (08:26)
[2018-09-22] MEDS: risperiDONE 1 MG TABLET. PO SCH (08:26)
[2018-09-22] MEDS: PANTOPRAZOLE 40 MG TABLET. PO SCH (08:27)
[2018-09-22] MEDS: NICOTINE 14MG PATCH. TD SCH (08:27)
[2018-09-22] MEDS: levETIRAcetam 500 MG TABLET PO SCH (08:27)
[2018-09-22 08:29] VITALS: BP 170/79
[2018-09-22] MEDS: MAGNESIUM OXIDE 400 MG TABLET PO SCH (08:29)
[2018-09-22] MEDS: CARVEDILOL 6.25 MG TABLET PO SCH (08:29)
[2018-09-22] MEDS: DULoxetine HCL 60 MG CAPSULE.DR PO SCH (08:29)
[2018-09-22] MEDS: NYSTATIN TOPICAL POWDER 15GM BOTTLE. TP SCH (09:00)
[2018-09-22] MEDS: BUDESONIDE 0.5 MG/2 ML NEBU NEB SCH (11:39)
--- NOTE | 2018-09-22 12:41 | PSYEV ---
DATE OF SERVICE: 09/17/2018 IDENTIFICATION: This 68-year-old male was admitted to unit 6 from [facility] because of threatening to kill himself and others, and then he chose to come to [facility]. CHIEF COMPLAINT: "I want to be in a safe place. I learned [facility] is good to stay. The patient also admits he had bad experience in the past from going to different hospital. The patient denies that he has any major problems." HISTORY OF PRESENT ILLNESS: The patient has a long history of psychiatric illness, diagnosis of schizophrenia, paranoid type and there has been multiple hospitalizations depending 5 years in [facility], multiple hospitalizations to [facility], he is also in [facility], [facility] in [place]. The patient states he has been a resident at the [facility] for 3 months. The patient apparently is not happy staying there. The patient is not admitting to having any visual or auditory hallucinations at this time, but he is very paranoid and suspicious. The patient also states he was diagnosed with a bipolar disorder, PTSD. The patient is also upset because recently he had an appendectomy, found out he has cancer and he has further followups and also is getting more upset, worried. The patient does admit to having problems with sleep. No change in his appetite. PAST PSYCHIATRIC HISTORY: Multiple hospitalizations in 1971. He has been gone through several stays in the hospital for long-term treatments up to 5 years in [facility]. The patient also has been at different nursing homes, not able to take care of his needs. CURRENT MEDICATIONS: Include citalopram, Cymbalta, olanzapine, risperidone, and trazodone. PAST MEDICAL HISTORY: The patient has a history of CHF, COPD, GERD, chronic kidney disease stage 3, hyperkalemia, anemia, obstructive sleep apnea, epilepsy, hypertension, psoriasis. CURRENT MEDICATIONS: Include aspirin, carvedilol, clonidine, Breo spray, Keppra, Namenda. He is also on nicotine patch. PSYCHOSOCIAL HISTORY: The patient unable to give much information from the past, stating there is psychiatric illness in the whole family. Father and brother both diagnosed with schizophrenia, paranoid type. The patient states she moved around the different states because his father was in the service. The patient has been in [place] for the past 30 years. The patient dropped out in the seventh grade, had difficulty in school. The patient is single. The patient denies of any abuse as a child. The patient denies any alcohol abuse at this time. MENTAL STATUS EXAMINATION: The patient appears to be of stated age, in ____ withdrawn. Poor eye contact. His behavior was appropriate except he was somewhat rigid. Decreased psychomotor activity, slow mentation. Speech was clear, monotone, decreased rate and rhythm. His affect ____. He is not depressed, but anxious, paranoid. Also having difficulty with his thinking, most likely disorganization of his thinking, having difficulty holding a conversation. The patient also is having issues with impulse control, has been aggressive, threatening staff that he will kill himself. He is oriented to his surroundings. His memory is not testable. The patient is distracted easily. The patient is exhibiting poor judgment, poor self-concern. The patient appears to be functioning on borderline level of intelligence. ASSETS: Fairly good health for his age. He is able to communicate, able to walk. WEAKNESSES: The patient has a long history of psychiatric illness. Also, noncompliant with the treatment. He has moved from different places, has been different placements, different [facility]. The patient's symptoms are not chronic. INITIAL TREATMENT PLAN: The patient is admitted to the [facility]. The patient will go through lab work and also be seen by the primary care for physical exam. The patient will be seen by the psychiatrist daily. The patient will be encouraged to return to normal activities including individual therapy, group therapy, activity therapy. The patient will continue on his current medications including Keppra 500 mg b.i.d., Risperdal 1 mg b.i.d., citalopram 40 mg daily, Cymbalta 60 mg daily, carvedilol 6.25 mg b.i.d., albuterol inhaler, Protonix 40 mg daily. He is also on hydrocodone p.r.n. q.6 hours, clonidine 0.1 mg q.4 hours p.r.n. for hypertension, trazodone 50 mg at night p.r.n. for sleep. ESTIMATED LENGTH OF STAY: 7-10 days. VELLORE KIRUBAKARAN, MD DR: ERIC/demetrius JOB#: [id number] / [id number]
--- NOTE | 2018-09-24 12:33 | DS ---
DATE OF DISCHARGE: ADMITTING DIAGNOSES: AXIS I: 1. Schizophrenia, paranoid, chronic. 2. Posttraumatic stress disorder. 3. History of major depression, single episode. AXIS II: None. AXIS III: 1. Congestive heart failure. 2. Chronic obstructive pulmonary disease. 3. Gastroesophageal reflux disease. 4. Chronic kidney disease stage 3. 5. Anemia. 6. Obstructive sleep apnea. 7. Seizure disorder. 8. Hypertension. 9. Psoriasis. REASON FOR ADMISSION: This 68-year-old male has a long history of psychiatric illness, diagnosis of schizophrenia, paranoid type and multiple hospitalizations including 5 years in [facility] and also in [facility]. HOSPITAL COURSE: The patient has been noncompliant with the treatment. The patient's first hospitalization was in 1971. The patient's medications included trazodone 100 mg at night, olanzapine 15 mg at night, Namenda 10 mg at night, Keppra 500 mg b.i.d., Risperdal 1 mg b.i.d., citalopram 40 mg daily, Cymbalta 60 mg daily. The patient was also on carvedilol 6.25 mg b.i.d., Protonix and also trazodone p.r.n. The patient did improve, able to show some insight to his problems. The patient was accepting of the discharge plan. The patient was returned to [facility] with the recommendation to continue the medications that was treated here. The patient was medically stable. The patient was not expressing any suicidal or homicidal thoughts. CLINTON LEBRON MD DR: ERIC/demetrius JOB#: [id number] / [id number]
== END 2018-09-22 12:50 | DRG 885 ==
LOC: ER 00:33 → GEROPSY 02:50
PROVIDERS: ADMIT Psychiatry & Neurology Psychiatry; ATTEND Psychiatry & Neurology Psychiatry
DX: F20.0 Paranoid schizophrenia (principal); E87.1 Hypo-osmolality and hyponatremia; I13.0 Hypertensive heart and chronic kidney disease with heart failure and stage 1 through stage 4 chronic kidney disease, or unspecified chronic kidney disease; R45.851 Suicidal ideations; E44.1 Mild protein-calorie malnutrition; F03.90 Unspecified dementia, unspecified severity, without behavioral disturbance, psychotic disturbance, mood disturbance, and anxiety; F31.9 Bipolar disorder, unspecified; F43.12 Post-traumatic stress disorder, chronic; G40.909 Epilepsy, unspecified, not intractable, without status epilepticus; G47.33 Obstructive sleep apnea (adult) (pediatric); L40.9 Psoriasis, unspecified; I25.10 Atherosclerotic heart disease of native coronary artery without angina pectoris; I50.9 Heart failure, unspecified; J44.9 Chronic obstructive pulmonary disease, unspecified; D64.9 Anemia, unspecified; E83.42 Hypomagnesemia; K21.9 Gastro-esophageal reflux disease without esophagitis; N18.3 Chronic kidney disease, stage 3 (moderate); Z55.9 Problems related to education and literacy, unspecified; Z79.899 Other long term (current) drug therapy; Z81.8 Family history of other mental and behavioral disorders; Z90.49 Acquired absence of other specified parts of digestive tract; Z91.19 Patient's noncompliance with other medical treatment and regimen; Z88.8 Allergy status to other drugs, medicaments and biological substances; Z68.30 Body mass index [BMI] 30.0-30.9, adult
CPT/HCPCS: 36415; 74022; 80048; 80061; 80076; 80307; 81001; 82306; 82550; 82607; 83036; 83540; 83550; 83690; 83735; 83880; 84436; 84443; 84480; 84484; 85025; 85610; 85651; 85730; 86592; 93005; 94640; G0480; G6039; J7613; J7626; 82003; 99285-25

== ENCOUNTER 2019-03-14 15:44 | Inpatient (IN) | payer MEDICARE, OTHER ==
[~2019-03-14] VITALS: Ht 177.8 cm; Wt 91.2 kg
[~2019-03-14 15:44] MED LIST: ACET500T68 PO; ALBU2.5V5 NEB; ASPI1CPM6 PO; BENZ100C PO; BUDE0.5A11 IH; CARV6.25 PO; CITA40TA5 PO; CLON0.1T PO; CLON1PAT3 TD; DULO60CA6 PO; ESCITALOPRAM OX20 MG PO; FLUT1AER IH; HYDR-3165 PO; LEVE500T56 PO; MAG-77 PO; MAGN2400 PO; MAGN400T22 PO; MEMA10TA PO; METH29OI TP; NICO1PAT25 TD; NITR0.4T22 SL; NYST15CR TP; OLAN15TA3 PO; PANT40TA3 PO; PATI8.4P PO; RISP1TAB43 PO; TRAZ-120 PO; TRAZ-86 PO; TRAZ150T49 PO
--- NOTE | 2019-03-14 16:41 | PHYS DOC ---
Past History Past Medical History: Anemia, Bipolar, CAD, CHF, Dementia, GERD, Seizure, Schizophrenia, Other (ABA REDD DO) Past Surgical History: Other (ABA REDD DO) Smoking: Cigarettes, Less than 1pk/day Additional Smoking Information: 1/2 PACK/DAY Alcohol Use: None Drug Use: None (ABA REDD DO) Adult General Chief Complaint Chief Complaint: PSYCH EVALUATION HPI HPI Patient is a 68-year-old male presents for clearance for [facility]. At the facility where he normally resides he heard voices arguing in his head. According to document sent with the patient, voices told him to leave the facility, and go to the gas station. They're also telling him to walk in front of a moving vehicle. Patient denies any suicidal or homicidal ideation. Patient denies any visual hallucinations. Patient denies any recent changes in his medication.[] (ABA REDD DO) Review of Systems Review of Systems Constitutional: Denies fever or chills [] Eyes: Denies change in visual acuity, redness, or eye pain [] HENT: Denies nasal congestion or sore throat [] Respiratory: Denies cough or shortness of breath [] Cardiovascular: No chest pain or palpitations[] GI: Denies abdominal pain, nausea, vomiting, bloody stools or diarrhea [] : Denies dysuria or hematuria [] Musculoskeletal: Denies back pain or joint pain [] Integument: Denies rash or skin lesions [] Neurologic: Denies headache, focal weakness or sensory changes [] Endocrine: Denies polyuria or polydipsia [] All other systems were reviewed and found to be within normal limits, except as documented in this note. (ABA REDD DO) Allergies Allergies Allergies Coded Allergies Type Severity Reaction Last Updated Verified chlorpromazine Allergy Unknown 03/14/19 Yes haloperidol Allergy Unknown 03/14/19 Yes levofloxacin Allergy Unknown 03/14/19 Yes thiothixene Allergy Unknown 03/14/19 Yes (ABA REDD DO) Physical Exam Physical Exam Constitutional: Well developed, well nourished, no acute distress, non-toxic appearance. [] HENT: Normocephalic, atraumatic, bilateral external ears normal, oropharynx moist, no oral exudates, nose normal. [] Eyes: PERRLA, EOMI, conjunctiva normal, no discharge. [] Neck: Normal range of motion, no tenderness, supple, no stridor. [] Cardiovascular:Heart rate regular rhythm, no murmur [] Lungs & Thorax: Bilateral breath sounds clear to auscultation [] Abdomen: Bowel sounds normal, soft, no tenderness, no masses, no pulsatile masses. [] Skin: Warm, dry, no erythema, no rash. [] Back: No tenderness, no CVA tenderness. [] Extremities: No tenderness, no cyanosis, no clubbing, ROM intact, no edema. [] Neurologic: Alert and oriented X 3, normal motor function, normal sensory function, no focal deficits noted. Resting tremor is noted [] Psychologic: Affect flat, judgement normal, mood normal. Patient denies any suicidal or homicidal ideations. Patient denies any visual hallucinations. Auditory hallucinations are as noted in the history of present illness[] ([facility]) Current Patient Data Vital Signs Vital Signs Date Time Temp Pulse Resp B/P (MAP) Pulse Ox O2 Delivery O2 Flow Rate FiO2 03/14/19 15:55 97.9 69 20 97 Room Air ([facility]) EKG EKG EKG shows a sinus rhythm at 67 bpm, left axis deviation at -50, right bundle branch block, QTC is 453 ms, no ST elevations.[] ([facility]) Radiology/Procedures Radiology/Procedures [] ([facility]) Course & Med Decision Making Course & Med Decision Making Pertinent Labs and Imaging studies reviewed. (See chart for details) ED course: Patient arrived, was placed in bed, and tolerated exam well. After the return of the laboratory studies that showed low sodium and low magnesium, did not feel that he was appropriate for [facility] admission initially and needed to have his electrolytes replaced. Consultation was made with hospitalist service who graciously accepted. Patient was admitted in improved condition. At approximately 1735, patient had a run of V. tach. That was self-limited. Patient denies any chest pain. Patient was started on amiodarone infusion. Cardiac enzymes were ordered. The hospitalist was reengaged and we elected to admit the patient to the ICU. Repeat EKG obtained at 174 shows a sinus rhythm, 74 bpm, left axis deviation at -39, QTC of 482 ms, no ST elevations.If he didn't change from his previous EKG today. Further review of the rhythm strip has a secondary lead been knees. His V. tach may be due to his tremor of the left arm that was resting on the right lead. Going to hold the amiodarone at this time pending and additional confirmatory run of V. tach while continuing to replace his electrolytes. Medical decision making: Patient here for medical clearance for [facility] unit. Given the low sodium and low magnesium, electing to admit the patient for replacement of these electrolytes prior to being admitted to [facility]. After the run of V. tach, patient is being admitted to the ICU.[] (ABA REDD DO) Course & Med Decision Making 1800- Sign out received from Dr. Redd for patient previously admitted to Dr. Jenkins awaiting admission. Patient was pending troponin at time of sign out. Follow-up performed by myself with negative initial troponin noted. I did not otherwise care for patient, nor did I perform a physical exam. Agree with continued plan for admission. (NELLIE BROWNE DO) Dragon Disclaimer Dragon Disclaimer This electronic medical record was generated, in whole or in part, using a voice recognition dictation system. (ABA REDD DO) Departure Departure: Impression: Primary Impression: Hyponatremia Additional Impressions: Hypomagnesemia Auditory hallucinations Schizophrenia Disposition: ADMITTED INPATIENT Admitting Physician: Damion Jenkins (ABA REDD DO) Condition: IMPROVED Referrals: CINDY LANCASTER DO (PCP) Problem Qualifiers Additional Impressions: Schizophrenia Schizophrenia type: unspecified Qualified Codes: F20.9 - Schizophrenia, unspecified BAA REDD DO March 14, 2019 16:41 NELLIE BROWNE DO March 14, 2019 19:12
[2019-03-14 16:45] LABS: BASO # 0.1 x10^3/uL (0.0-0.2); BASO % 1 % (0-3); EOS # 0.2 x10^3/uL (0.0-0.7); EOS % 3 % (0-3); HEMOGLOBIN 11.1 g/dL (13.0-17.5); LYMPH # 0.7 x10^3/uL (1.0-4.8); LYMPH % 10 % (24-48); MEAN CORPUSCULAR HEMOGLOBIN 30 pg (25-35); MEAN CORPUSCULAR HGB CONC 35 g/dL (31-37); MEAN CORPUSCULAR VOLUME 87 fL (79-100); MONO # 0.7 x10^3/uL (0.0-1.1); MONO % 10 % (0-9); NEUT # 5.4 x10^3uL (1.8-7.7); NEUT % 76 % (31-73); PLATELET COUNT 140 x10^3/uL (140-400); RED BLOOD COUNT 3.69 x10^6/uL (4.30-5.70); RED CELL DISTRIBUTION WIDTH 15.7 % (11.5-14.5); WHITE BLOOD COUNT 7.1 x10^3/uL (4.0-11.0)
[2019-03-14 17:02] LABS: ALBUMIN 3.7 g/dL (3.4-5.0); ALBUMIN/GLOBULIN RATIO 1.4 (1.0-1.7); CREATININE 1.4 mg/dL (0.7-1.3); GFR 50.1; MAGNESIUM 1.6 mg/dL (1.8-2.4); POTASSIUM 4.4 mmol/L (3.5-5.1); TOTAL BILIRUBIN 0.2 mg/dL (0.2-1.0); TOTAL PROTEIN 6.4 g/dL (6.4-8.2)
--- NOTE | 2019-03-14 17:04 | EKG ---
[address] [address] Test Date: 2019-03-14 Test Time: 16:10:51 Pat Name: CHAGO SNYDER Department: Room: Gender: M Deliverer Outside: STARLA : 1950 Requested By: ABA MOHAN Order Number: [id number] Reading MD: Measurements Intervals [place] Rate: 67 P: 28 KS: 150 QRS: -50 QRSD: 142 T: 20 QT: 426 QTc: 453 Interpretive Statements SINUS RHYTHM ABNORMAL LEFT AXIS DEVIATION LEFT ANTERIOR FASCICULAR BLOCK RIGHT BUNDLE BRANCH BLOCK BIFASCICULAR BLOCK ABNORMAL ECG RI6.01 No previous ECG available for comparison
[2019-03-14 17:14] LABS: BACTERIA,URINE 0 /HPF (0-FEW); BILIRUBIN,URINE NEG (NEG); CLARITY,URINE CLEAR; COLOR,URINE AMBER; GLUCOSE,URINE NEG (NEG); HYALINE CASTS, URINE OCC /HPF; NITRITE,URINE NEG (NEG); RBC,URINE 0 /HPF (0-2); SQUAMOUS EPITHELIAL CELL,UR OCC /LPF; UROBILINOGEN,URINE 0.2 mg/dL (0.2 mg/dL); WBC,URINE 0 /HPF (0-4)
[2019-03-14] MEDS ORDERED: MAGNESIUM SULFATE 2GM 50 ML IV ONE (17:15)
[2019-03-14] MEDS ORDERED: IV NORMAL SALINE 1,000ML 1,000 ML IV ONE (17:15)
[2019-03-14] MEDS: IV NORMAL SALINE 1,000ML 1,000 ML IV SCH (17:19)
[2019-03-14] MEDS ORDERED: ONDANSETRON PF 4 MG/2 ML VIAL. IV PRN (17:30)
[2019-03-14] MEDS ORDERED: ACETAMINOPHEN 325 MG TABLET PO PRN (17:30)
[2019-03-14] MEDS ORDERED: AMIODARONE 150 MG in IV DEXTROSE 5% 100 ML IVP ONE (17:45)
[2019-03-14] MEDS ORDERED: AMIODARONE 900 MG in IV DEXTROSE 5% 500 ML IV PRN (18:00)
--- NOTE | 2019-03-14 18:45 | NUR ---
Admission note The patient, CHAGO SNYDER, 68 y/o, M admitted by CARLTON UGALDE MD, was given written information regarding hospital policies, unit procedures and contact persons. Patient arrived to room 125 via gurney from ED. Patient failed medical clearance to [facility] due to low sodium and magnesium. Patient reports active auditory hallucinations. Patient denies desire for self harm or suicidal ideation. Oriented to unit and routines, patient voiced understanding. Call light in reach, bed locked in lowest position. Valuables were checked and logged. Patient had 2 lighters, a $1 bill, and a wander guard bracelet which were bagged and locked in med room..
[2019-03-14 19:58] VITALS: BP 148/78
[2019-03-14] MEDS ORDERED: IPRA3AMP29 NEB (20:28)
[2019-03-14] MEDS ORDERED: RISP1TAB43 PO (20:45)
[2019-03-14] MEDS ORDERED: RISP0.5T24 PO (20:45)
[2019-03-14] MEDS ORDERED: RISP2TAB33 PO (20:45)
[2019-03-14] MEDS ORDERED: LEVE500T56 PO (20:45)
[2019-03-14] MEDS ORDERED: RIVA1PAT23 TD (20:45)
[2019-03-14] MEDS ORDERED: TRAZ150T49 PO (20:45)
[2019-03-14] MEDS ORDERED: ROFL500T7 PO (20:45)
[2019-03-14] MEDS ORDERED: CARV6.25 PO (20:45)
[2019-03-14] MEDS ORDERED: ATROVENT NS (20:45)
[2019-03-14] MEDS ORDERED: HYDR-2145 PO (20:45)
[2019-03-14] MEDS ORDERED: PRIM50TA24 PO (20:45)
[2019-03-14] MEDS ORDERED: OMEP20CA9 PO (20:45)
[2019-03-14] MEDS ORDERED: PANTOPRAZOLE 40 MG TABLET. PO SCH (21:00)
[2019-03-14] MEDS: IPRATRPIUM/ALBUTEROL 0.5/2.5MG 3 ML NEBU. NEB SCH (21:00)
[2019-03-14] MEDS: IPRATROPIUM BROMIDE 0.06% NASAL SPRAY 15ML BOTTLE NS SCH (21:00)
[2019-03-14] MEDS: traZODone 150 MG TABLET. PO SCH (21:00)
[2019-03-14] MEDS: risperiDONE 2 MG TABLET. PO SCH (22:03)
[2019-03-14] MEDS: levETIRAcetam 500 MG TABLET PO SCH (22:04)
[2019-03-14] MEDS: PRIMIDONE 50 MG TABLET PO SCH (22:04)
[2019-03-14 22:59] VITALS: BP 133/65
[2019-03-15] MEDS: IV NORMAL SALINE 1,000ML 1,000 ML IV SCH ×3 (00:13→13:19)
[2019-03-15 05:15] VITALS: BP 129/76
[2019-03-15] MEDS: IPRATRPIUM/ALBUTEROL 0.5/2.5MG 3 ML NEBU. NEB SCH ×2 (05:26→11:26)
[2019-03-15 06:53] LABS: CALCIUM 8.3 mg/dL (8.5-10.1); CREATININE 1.1 mg/dL (0.7-1.3); GFR 66.2; POTASSIUM 3.9 mmol/L (3.5-5.1)
[2019-03-15 07:05] LABS: BASO # 0.1 x10^3/uL (0.0-0.2); BASO % 1 % (0-3); EOS # 0.2 x10^3/uL (0.0-0.7); EOS % 3 % (0-3); HEMATOCRIT 29.1 % (39.0-53.0); HEMOGLOBIN 10.2 g/dL (13.0-17.5); LYMPH # 0.7 x10^3/uL (1.0-4.8); LYMPH % 14 % (24-48); MEAN CORPUSCULAR HEMOGLOBIN 30 pg (25-35); MEAN CORPUSCULAR HGB CONC 35 g/dL (31-37); MEAN CORPUSCULAR VOLUME 86 fL (79-100); MONO # 0.5 x10^3/uL (0.0-1.1); MONO % 10 % (0-9); NEUT # 3.7 x10^3uL (1.8-7.7); NEUT % 72 % (31-73); PLATELET COUNT 125 x10^3/uL (140-400); RED BLOOD COUNT 3.39 x10^6/uL (4.30-5.70); RED CELL DISTRIBUTION WIDTH 15.6 % (11.5-14.5); WHITE BLOOD COUNT 5.1 x10^3/uL (4.0-11.0)
[2019-03-15] MEDS ORDERED: risperiDONE 1 MG TABLET. PO SCH (08:00)
[2019-03-15] MEDS ORDERED: CARVEDILOL 12.5 MG TABLET PO SCH (08:00)
[2019-03-15] MEDS ORDERED: hydroCHLOROthiazide 25 MG TABLET PO SCH (09:00)
[2019-03-15] MEDS ORDERED: RIVASTIGMINE 9.5MG PATCH. TD SCH (09:00)
[2019-03-15] MEDS ORDERED: ROFLUMILAST 500 MCG TABLET PO SCH (09:00)
[2019-03-15] MEDS: IPRATROPIUM BROMIDE 0.06% NASAL SPRAY 15ML BOTTLE NS SCH (09:01)
[2019-03-15] MEDS: risperiDONE 2 MG TABLET. PO SCH (09:02)
[2019-03-15] MEDS: traZODone 150 MG TABLET. PO SCH (09:04)
[2019-03-15] MEDS: levETIRAcetam 500 MG TABLET PO SCH (09:04)
[2019-03-15] MEDS: PRIMIDONE 50 MG TABLET PO SCH ×2 (09:06→14:00)
[2019-03-15 10:49] VITALS: BP 153/75
[2019-03-15 15:30] VITALS: BP 181/90
--- NOTE | 2019-03-15 15:32 | SSS ---
ADMIT DATE: 03/15/2019 HISTORY OF PRESENT ILLNESS: The patient is a 68-year-old male patient, a resident at [facility], who apparently . DICTATION ENDS HERE CARLTON UGALDE MD DR: ARLYN/demetrius JOB#: [id number] / [id number]
--- NOTE | 2019-03-15 15:58 | SSS ---
ADMIT DATE: 03/15/2019 HISTORY OF PRESENT ILLNESS: The patient is a 68-year-old male patient, a resident at [facility], who apparently went to the gas station as his voices told him to leave the facility and told him to walk in front of a moving vehicle. This is apparently on account of a background of his schizophrenia and therefore, the patient was sent to [facility] for inpatient psychiatric stabilization. He was seen in the Emergency Room of [facility] and evaluation there showed that he was hyponatremic and hypomagnesemic. His serum sodium is down to 126 and magnesium was down to 1.6 and in fact, while at the Emergency Room, he developed a nonsustained episode of ventricular tachycardia and he was given IV magnesium and his heart rate has reverted to sinus rhythm and was admitted to [address] [place] [address] and continued on IV normal saline and oral magnesium. PAST MEDICAL HISTORY: Significant for coronary artery disease, gastroesophageal reflux disease, congestive heart failure, anemia. He is also known to have bipolar disorder and schizophrenia. PAST SURGICAL HISTORY: Unremarkable. ALLERGIES: HE IS ALLERGIC TO CHLORPROMAZINE, HALOPERIDOL, LEVOFLOXACIN, AND THIOTHIXENE. MEDICATIONS: He is currently on following medications: He is on rivastigmine for Exelon patch 9.5 mg 24 hour 1 patch transdermal daily, ipratropium bromide, albuterol sulfate 0.5/2.5 mg in 3 mL by nebulizer 3 times a day, albuterol sulfate by nebulizer 4 times a day. He is on NicoDerm CQ 14 mg topically daily, clonidine patch 0.3 mg every Thursday. He is also on clonidine 0.1 mg every 4 hours as needed, nitroglycerin 0.4 mg sublingually every 5 minutes x 3. He is on aspirin dipyridamole 25/200 extended release one capsule twice a day, carvedilol 6.25 mg twice a day, hydrocodone/APAP 5/325 one tablet every 6 hours, Tylenol 500 mg every 6 hours, primidone 25 mg 3 times a day, Keppra 500 mg twice a day, citalopram hydrobromide 40 mg once a day, duloxetine for Cymbalta 60 mg daily, trazodone 100 mg at bedtime, trazodone 50 mg every 8 hours, and olanzapine for Zyprexa 15 mg at bedtime, risperidone 1 mg p.o. b.i.d. and risperidone 2 mg at bedtime, Namenda 10 mg at bedtime, patiromer calcium sorbitex for Veltassa 8.4 grams p.o. daily for hyperkalemia, hydrochlorothiazide 25 mg daily, benzonatate 100 mg every 8 hours as needed, budesonide 0.5 mg in 2 mL by nebulizer twice a day. He is on Breo Ellipta 1 puff daily, Daliresp 500 mcg daily, Maalox 15 mL after meals, magnesium oxide 400 mg 3 times a day, milk of magnesia 30 mL p.o. daily p.r.n. for constipation, Protonix 40 mg once a day, nystatin cream applied topically 3 times a day and Atrovent twice a day. PHYSICAL EXAMINATION: GENERAL: On arrival to the Emergency Room, he looked well and was clearly in no apparent respiratory distress. He was slightly pale, but no jaundice, cyanosis, or thyromegaly. No jugular venous distension. No lower limb edema. VITAL SIGNS: His heart rate was 69, blood pressure 157/88, temperature was 97.9, respiratory rate 20, and oxygen saturation was 97%. HEAD, EYES, EARS, NOSE AND THROAT: Showed normocephalic, atraumatic. NECK: Supple. HEART: Showed normal first and second heart sounds with no gallop, rub or murmur. CHEST: Clear to auscultation. No crepitation or rhonchi. ABDOMEN: Distended, soft, nontender. No guarding or rigidity. No organomegaly. All hernial orifices intact. Bowel sounds normal. NEUROLOGIC: He is awake, alert, responding appropriately. All cranial nerves intact. He moves extremities without difficulty. He continued to hear voices, although they are not telling him to do anything to harm himself. LABORATORY DATA: His lab work on arrival showed a white cell count 7100, hemoglobin 11, hematocrit 32, MCV 87, and platelet count of 140,000. Serum sodium was 129, potassium 4.4, chloride 92, bicarbonate 25, anion gap of 9, BUN 27, creatinine 1.4, estimated GFR was 50 mL per minute, his glucose was 82, calcium was 9, magnesium was 1.6. His total bilirubin, AST, ALT, alkaline phosphatase were normal. Total protein was 6.4, albumin was 3.7. Serum iron, TIBC and iron saturation are all low consistent with anemia of chronic disease. His urinalysis showed the urine was clear with a pH of 5, specific gravity of 1.020. There was moderate amount of protein. The urine was negative for glucose. There was trace of ketones, negative for blood, nitrite and leukocyte esterase. There are no rbc's, no wbc's and no bacteria. ASSESSMENT AND PLAN: The patient was basically admitted and received 2 g of magnesium sulfate in the Emergency Room, was started on IV normal saline. We held his hydrochlorothiazide and when I saw him this afternoon, he looked well and was clearly in no apparent respiratory distress. No pallor or jaundice, cyanosis, or thyromegaly. No jugular venous distension. No lower limb edema. His heart rate was 76, blood pressure was 153/75, temperature was 98.2, respiratory rate was 20, and oxygen saturation was 94% on room air. The rest of clinical examination is stable and has not really changed. His lab work this afternoon showed that his white cell count was 5100, hemoglobin 10.2, hematocrit 29, MCV 86 and platelet count of 125,000. His chemistry showed that his sodium has improved to 131, potassium 3.9, chloride 97, bicarbonate 26, anion gap of 8, BUN 22, creatinine 1.1, estimated GFR was 66 mL per minute. His glucose was 92, calcium was 8.3, magnesium was 1.8. He was transferred to [facility] to continue on all his medication. I did discontinue his hydrochlorothiazide, added magnesium oxide 400 mg 3 times a day. FINAL DISCHARGE DIAGNOSES: Hyponatremia, improving; hypomagnesemia, improving; acute kidney injury, improving. His creatinine came down from 1.4 to 1.1. The patient has multiple other medical problems including hypertension, chronic obstructive pulmonary disease, seizure disorder, and gastroesophageal reflux disease. CARLTON UGALDE MD DR: ARLYN/demetrius JOB#: [id number] / [id number]
--- NOTE | 2019-03-15 16:08 | NUR ---
Discharge Note: CHAGO SNYDER [address] Discharge instructions and discharge home medications reviewed with Other facility and a copy given. All questions have been answered and understanding verbalized. The following instructions and handouts were given to Marleny GASTON on [facility]. Discontinued lines and drains IV in left hand, tip in tact, pressure dressing applied. No signs and symptoms of infection present. Patient transferred to [facility] at 1600. Patient ambulated independently accompanied by staff to [facility]. Educated patient on reason for transfer to [facility], patient verbally verified understanding of education received.
[2019-03-15] MEDS ORDERED: MAGN400T22 PO (17:48)
[2019-03-15] MEDS ORDERED: ACET325T9 PO (17:48)
== END 2019-03-15 16:23 | DRG 640 ==
LOC: ER 15:44 → MERGE 18:05 → 1 SOUTH 18:05
PROVIDERS: ADMIT Internal Medicine; ATTEND Internal Medicine
DX: E87.1 Hypo-osmolality and hyponatremia (principal); N17.0 Acute kidney failure with tubular necrosis; I47.2 Ventricular tachycardia; E83.42 Hypomagnesemia; F03.90 Unspecified dementia, unspecified severity, without behavioral disturbance, psychotic disturbance, mood disturbance, and anxiety; F20.9 Schizophrenia, unspecified; F31.9 Bipolar disorder, unspecified; G40.909 Epilepsy, unspecified, not intractable, without status epilepticus; I11.0 Hypertensive heart disease with heart failure; I25.10 Atherosclerotic heart disease of native coronary artery without angina pectoris; I50.9 Heart failure, unspecified; J44.9 Chronic obstructive pulmonary disease, unspecified; K21.9 Gastro-esophageal reflux disease without esophagitis; F17.210 Nicotine dependence, cigarettes, uncomplicated
CPT/HCPCS: 36415; 80048; 80053; 81001; 83540; 83550; 83735; 84484; 85025; 87641; 93005; 94640; 96365; J3475; J7620; 99285-25; J7030

== ENCOUNTER 2019-03-15 16:35 | Inpatient (IN) | payer MEDICARE, OTHER ==
[~2019-03-15] VITALS: Ht 180.3 cm; Wt 92.1 kg
[~2019-03-15 16:35] MED LIST changes: +ATROVENT NS; +HYDR-2145 PO; +IPRA3AMP29 NEB; +OMEP20CA9 PO; +PRIM50TA24 PO; +RISP0.5T24 PO; +RISP2TAB33 PO; +RIVA1PAT23 TD; +ROFL500T7 PO
[2019-03-15 17:06] VITALS: BP 175/105
[2019-03-15] MEDS ORDERED: ACETAMINOPHEN 325 MG TABLET PO PRN ×2 (17:15→18:45)
[2019-03-15] MEDS ORDERED: ACET325T9 PO (17:48)
[2019-03-15] MEDS ORDERED: MAGN400T22 PO (17:48)
[2019-03-15] MEDS ORDERED: MAG HYDROX/AL HYDROX/SIMETH 30 ML ORAL.SUSP PO PRN (18:00)
[2019-03-15] MEDS ORDERED: METHYL SALICYLATE/MENTHOL TOPICAL OINTMENT 29GM TUBE. TP PRN (18:00)
[2019-03-15] MEDS ORDERED: MAGNESIUM HYDROXIDE 2,400 MG/30 ML ORAL.SUSP. PO PRN (18:00)
[2019-03-15] MEDS: PRIMIDONE 50 MG TABLET PO SCH (19:56)
[2019-03-15] MEDS: levETIRAcetam 500 MG TABLET PO SCH (19:56)
[2019-03-15] MEDS: MAGNESIUM OXIDE 400 MG TABLET PO SCH (19:56)
[2019-03-15] MEDS: risperiDONE 2 MG TABLET. PO SCH (19:56)
[2019-03-15] MEDS: traZODone 150 MG TABLET. PO SCH (20:20)
[2019-03-15] MEDS: IPRATRPIUM/ALBUTEROL 0.5/2.5MG 3 ML NEBU. NEB SCH (21:00)
[2019-03-15] MEDS: IPRATROPIUM BROMIDE 0.06% NASAL SPRAY 15ML BOTTLE NS SCH (21:00)
[2019-03-16] MEDS: IPRATRPIUM/ALBUTEROL 0.5/2.5MG 3 ML NEBU. NEB SCH ×3 (05:35→20:43)
[2019-03-16 06:13] VITALS: BP 153/73
[2019-03-16 06:19] LABS: BASO % 1 % (0-3); EOS # 0.2 x10^3/uL (0.0-0.7); EOS % 5 % (0-3); HEMATOCRIT 30.7 % (39.0-53.0); HEMOGLOBIN 10.6 g/dL (13.0-17.5); LYMPH # 0.8 x10^3/uL (1.0-4.8); LYMPH % 18 % (24-48); MEAN CORPUSCULAR HEMOGLOBIN 30 pg (25-35); MEAN CORPUSCULAR HGB CONC 35 g/dL (31-37); MEAN CORPUSCULAR VOLUME 86 fL (79-100); MONO # 0.3 x10^3/uL (0.0-1.1); MONO % 7 % (0-9); NEUT # 3.3 x10^3uL (1.8-7.7); NEUT % 69 % (31-73); PLATELET COUNT 136 x10^3/uL (140-400); RED BLOOD COUNT 3.59 x10^6/uL (4.30-5.70); RED CELL DISTRIBUTION WIDTH 15.6 % (11.5-14.5); WHITE BLOOD COUNT 4.8 x10^3/uL (4.0-11.0)
[2019-03-16 06:36] LABS: CALCIUM 8.5 mg/dL (8.5-10.1); CREATININE 0.9 mg/dL (0.7-1.3); GFR 83.4; MAGNESIUM 1.5 mg/dL (1.8-2.4); POTASSIUM 3.7 mmol/L (3.5-5.1); TOTAL BILIRUBIN 0.3 mg/dL (0.2-1.0); TOTAL PROTEIN 5.9 g/dL (6.4-8.2)
[2019-03-16] MEDS: NICOTINE 14MG PATCH. TD SCH ×2 (09:00→09:42)
[2019-03-16] MEDS: MAGNESIUM OXIDE 400 MG TABLET PO SCH ×3 (09:35→20:28)
[2019-03-16] MEDS: levETIRAcetam 500 MG TABLET PO SCH ×2 (09:35→20:29)
[2019-03-16] MEDS: PRIMIDONE 50 MG TABLET PO SCH ×3 (09:36→20:29)
[2019-03-16] MEDS: ROFLUMILAST 500 MCG TABLET PO SCH (09:36)
[2019-03-16] MEDS: risperiDONE 1 MG TABLET. PO SCH ×2 (09:41→16:12)
[2019-03-16] MEDS: CARVEDILOL 12.5 MG TABLET PO SCH ×2 (09:41→16:13)
[2019-03-16] MEDS: RIVASTIGMINE 9.5MG PATCH. TD SCH (09:41)
[2019-03-16] MEDS: PANTOPRAZOLE 40 MG TABLET. PO SCH (09:41)
[2019-03-16] MEDS: IPRATROPIUM BROMIDE 0.06% NASAL SPRAY 15ML BOTTLE NS SCH ×2 (12:11→20:30)
[2019-03-16 16:26] VITALS: BP 163/80
[2019-03-16 19:06] LABS: THYROXINE 5.4 ug/dL (4.5-12.0)
[2019-03-16 19:14] LABS: THYROID STIM HORMONE (TSH) 1.548 uIU/mL (0.358-3.740)
[2019-03-16] MEDS: traZODone 150 MG TABLET. PO SCH (20:28)
[2019-03-16] MEDS: risperiDONE 2 MG TABLET. PO SCH (20:29)
--- NOTE | 2019-03-16 21:45 | HP ---
ADMIT DATE: 03/15/2019 HISTORY OF PRESENT ILLNESS: A 68-year-old gentleman. He is on the [facility]. The patient was brought in to the [facility]al Unit as he was hearing voices and the voices were telling him to leave this facility where he was stationed or where he was living. The patient denies any suicidal or homicidal ideations or visual hallucinations. The patient denies any change in medications. He does have trouble breathing and they also found out that the patient felt that the voices were telling him to walk out in front of a moving vehicle. Fortunately, he was brought into the Emergency Room where he was evaluated, found to have sodium was somewhat low and they gave him some normal saline and he seems to be a little bit better according to staff. PAST MEDICAL HISTORY: Includes anemia, bipolar disease, coronary artery disease, CHF, dementia, GERD, seizures, schizophrenia, congestive heart failure, history of pneumonia, sleep apnea, appendectomy, stage 3 renal disease, incontinence, degenerative arthritis, psychiatric problems including schizophrenia, paranoid ideation, panic disorder, depression, PTSD, previous suicide attempt. He has also had a history of anemia and problems. ALLERGIES: HE HAS ALLERGIES TO CHLORPROMAZINE, ALBUTEROL, LEVOFLOXACIN AND THIOTHIXENE. CURRENT MEDICATIONS: Includes he takes breathing treatments 4 times a day, Exelon 9.5 mg every 24 hours, Coreg 6.25 b.i.d., Tylenol, Mysoline 25 p.o. t.i.d., Keppra 500 mg p.o. b.i.d., trazodone 150 mg at bedtime, risperidone 1 mg p.o. b.i.d., risperidone 2 mg at bedtime, Daliresp 500 mcg p.o. daily, magnesium oxide 400 mg t.i.d., Protonix 40 and Atrovent 2 sprays b.i.d. SOCIAL HISTORY: Apparently, he has a history of smoking in the past, has about 40-50 pack year history of smoking, possibly drinking in the past, but nothing recent. The patient is a DNR. FAMILY HISTORY: Unremarkable. REVIEW OF SYSTEMS: The patient outside of his shortness of breath, denies chest pain, does have an interesting tremor noted and contractures to his left arm and hand. He claims this was only started in the last 3-4 months. When I asked the nursing staff, they thought that he had already had a CT of his head, but Neurology is being consulted on that. I do not see any other records in the chart for this; however, may be done at another institution. The patient otherwise is more concerned obviously about his breathing and he does have breathing problems. PHYSICAL EXAMINATION: GENERAL: This is a pleasant white male, looking somewhat older than 68-year-old gentleman, not well kempt. VITAL SIGNS: Blood pressure 163/80, respiratory rate 20, pulse 64, afebrile, oxygen saturation is good. HEENT: The patient's head was atraumatic, normocephalic. Eyes were PERRLA. No jaundice. Mouth and throat: Poor dentition. NECK: Supple. There is no JVD. Carotid bruits obvious. LUNGS: Did show rhonchi with inspiration and expiration with a few wheezes in between. CARDIOVASCULAR: Regular sinus rhythm, S1, S2. ABDOMEN: Protuberant, soft, nontender. EXTREMITIES: Without clubbing, cyanosis, nor edema and the peripheral, however, his left arm showed a contracture flexion as well as some contracture of the hand and he had a shaking tremor, one of this was present for a long time or in the last 4 months, it is hard to say. The patient's reflexes were brisk. Again, ____ will review this and make his timely suggestions. NEUROLOGIC: Otherwise, the patient is alert. He seems to converse fairly well with spontaneous speech. Concerned about his breathing and content of speech was adequate. LABORATORY DATA: The patient's hemoglobin was 10.6 and hematocrit 30, platelets were just a smidgen low at 136, probably related to his medications. His sodium apparently in the Emergency Room was 126, they got up to 129. His magnesium was low at 1.5 and he is on Slow-Mag for that. His BUN and creatinine were stable at 15 and 0.9. His iron was low at 41. His vitamin D level was low at 20. His TSH was normal, although his T3 was slightly low at 66. I did his cholesterol and that was within range for a man his age. His albumin was slightly low. Liver enzymes were low. UA was not obtained. Check for syphilis was negative. IMPRESSION: Schizoaffective disorder, auditory hallucinations. We will have Dr. Landa obviously follow that in his usual professional way. Medically obviously, the patient needs to continue be monitored on his low sodium, which may be syndrome of inappropriate antidiuretic hormone, may be related to some of the medications. He takes as antipsychotics are well known to cause the situation of low sodium. His breathing problems with exacerbation of chronic obstructive pulmonary disease with marked rhonchi and wheezing, we will increase his breathing treatments every 6 hours and then p.r.n. albuterol treatments in between. The patient should get a chest x-ray and earlier UA with micro. Otherwise as noted, he has anemia of 10.6 and 30, probably related to iron deficiency, probably poor dietary intake of iron supplementation, but seems to be stable in that regard. Otherwise, the patient continued to be monitored and Dr. Jenkins will follow along for his other medical issues. JOHN STEWART MD DR: SWATI/demetrius JOB#: [id number] / [id number]
[2019-03-16] MEDS: ALBUTEROL SULFATE 2.5 MG/3 ML NEBU. NEB PRN (22:06)
--- NOTE | 2019-03-17 01:54 | PSYEV ---
DATE OF SERVICE: 03/15/2019 REASON FOR ADMISSION: This 68-year-old male was admitted from [facility] through the Emergency Room to [facility] Unit at [facility]. The patient apparently has been experiencing voices, which are command in nature, telling him to go to the gas station, telling him to walk in front of a car. The patient states he could not explain why he started hearing voices all of a sudden and losing control and currently denies of having any auditory hallucinations. HISTORY OF PRESENT ILLNESS: The patient apparently was treated briefly at [facility] in [place] in late January 2019 because of the similar problems. The patient apparently has been having problems with psychotic episodes and behavior problems. The patient has a long history of psychiatric illness and diagnosed with schizophrenia, paranoid type and apparently had multiple hospitalizations including 5 years in [facility], multiple hospitalizations to [facility]. He was also on [facility] and also [facility] in [place]. The patient has been a resident at the [facility] recently and in the past, he was at [facility] for almost 3 months. The patient at that time was not happy being there, wanted to move to a different place. The patient is known to be very paranoid and suspicious. He was also diagnosed in the past with the bipolar disorder, PTSD. The patient also tends to worry a lot, worried about his physical complaints. PAST PSYCHIATRIC HISTORY: The patient has been in and out of [facility] since 1971. He had a long-term treatment up to 5 years in [facility]. The patient has been to different alf. The patient's current medication that he was to be taking at the alf included Exelon patch 9.5 ____ 24-hour, hydrochlorothiazide 25 mg daily, Mysoline 50 mg 1/2 tablet 3 times a day. The patient was also on Risperdal 0.5 mg twice a day for schizophrenia and Risperdal 1 mg twice a day. PAST MEDICAL HISTORY: The patient has a history of CHF, COPD, GERD, chronic kidney disease stage 3, hyperkalemia, anemia, obstructive sleep apnea, epilepsy, hypertension, and psoriasis. The patient also has been on citalopram, Cymbalta, olanzapine, and trazodone in the past. PSYCHOSOCIAL HISTORY: The patient is unable to give much information from the past. FAMILY PSYCHIATRIC HISTORY: Apparently, there is a family history of schizophrenia, including his father and brother diagnosed with schizophrenia, paranoid type. The patient moved to different states as his father was in the service. SOCIAL HISTORY: The patient has been living in [place] for almost 30 years. The patient has 7th grade education, had problems with learning in school. The patient denied of any abuse as a child. The patient also denied of any alcohol abuse. MENTAL STATUS EXAMINATION: The patient appeared to be of stated age, casually dressed, obese, able to make eye contact. The patient also has generalized involuntary movements, unable to sit still. The patient stated he has been drinking too much water lately. The patient states he gets upset easily and also having difficulty with his thinking, becomes delusional and paranoid. The patient also has problems with impulse control, has a tendency to become aggressive, threatening towards staff. The patient also has had command hallucinations. The patient is oriented to surroundings. The patient has some cognitive deficits. The patient exhibits poor judgment, low self-esteem, poor self-concept. The patient appears to be functioning on borderline level of intelligence. The patient's insight is minimal. ASSETS: Fairly in good health for his age, good communication skills, able to walk, able to socialize. WEAKNESSES: The patient has a long history of psychiatric illness as a result his behavior and mood fluctuates, he is getting into problems, and moved from different alf in the past. INITIAL TREATMENT PLAN: The patient will be under observation. The patient will continue on his home medications that includes Protonix 40 mg daily, rivastigmine patch daily, Coreg 12.5 mg b.i.d. with meals, Risperdal 1 mg twice a day, primidone 25 mg t.i.d. The patient is also on Atrovent nasal spray b.i.d., Keppra 500 mg b.i.d., trazodone 150 mg at night, and Risperdal 2 mg at night. The patient will be involved in the program including individual therapy, group therapy, activity therapy. LENGTH OF STAY: 7-10 days. The patient will return to the facility that he came from. CLINTON LEBRON MD DR: ERIC/demetrius JOB#: [id number] / [id number]
[2019-03-17 05:57] VITALS: BP 145/74
[2019-03-17] MEDS: IPRATRPIUM/ALBUTEROL 0.5/2.5MG 3 ML NEBU. NEB SCH ×3 (06:01→20:46)
--- NOTE | 2019-03-17 07:47 | RAD ---
Chest, 2 views, 03/16/2019: HISTORY: Wheezing, shortness of breath, cough Comparison is made to a study from 09/17/2018. The heart size and pulmonary vascularity are within normal limits. There is minimal pleural scarring in the left upper chest. There is mild unchanged prominence of the basilar lung markings likely due to scarring. No pulmonary consolidation is seen. There is no evidence of pleural fluid. There are mild scattered degenerative changes in the spine. There is slight loss of height of 2 mid thoracic vertebral bodies of indeterminate ages. IMPRESSION: 1. Mild prominence of the basilar pulmonary markings, likely due to scarring. 2. No new cardiopulmonary abnormality is detected. Electronically signed by: Ebenezer Pollard MD (03/17/2019 7:44 AM) [facility]
[2019-03-17 07:53] LABS: BACTERIA,URINE 0 /HPF (0-FEW); BILIRUBIN,URINE NEG (NEG); CLARITY,URINE CLEAR; COLOR,URINE STRAW; GLUCOSE,URINE NEG (NEG); NITRITE,URINE NEG (NEG); RBC,URINE 0 /HPF (0-2); SQUAMOUS EPITHELIAL CELL,UR OCC /LPF; UROBILINOGEN,URINE 0.2 mg/dL (0.2 mg/dL); WBC,URINE 0 /HPF (0-4)
[2019-03-17] MEDS: NICOTINE 14MG PATCH. TD SCH (09:00)
--- NOTE | 2019-03-17 09:06 | RAD ---
CT HEAD WO CONTRAST History: Tremors Comparison: None. Technique: Noncontrast CT imaging was performed of the head. Exposure: One or more of the following individualized dose reduction techniques were utilized for this examination: 1. Automated exposure control 2. Adjustment of the mA and/or kV according to patient size 3. Use of iterative reconstruction technique. Findings: No acute extra-axial or parenchymal hemorrhage is identified. There is no significant intra-axial mass effect, midline shift, or extra-axial fluid collection. The mena-white differentiation of the major vascular territories is preserved. Ventricular size is within normal limits. There is mild generalized supratentorial atrophy. The mastoid air cells and the visualized paranasal sinuses are aerated. No acute calvarial abnormality is identified. Impression: 1. No acute intracranial abnormality is identified. There is mild generalized supratentorial atrophy. Electronically signed by: Jasbir Wall MD (03/17/2019 9:03 AM) [id number]
[2019-03-17] MEDS: ROFLUMILAST 500 MCG TABLET PO SCH (09:13)
[2019-03-17] MEDS: PRIMIDONE 50 MG TABLET PO SCH ×3 (09:14→20:41)
[2019-03-17] MEDS: CARVEDILOL 12.5 MG TABLET PO SCH ×2 (09:14→17:40)
[2019-03-17] MEDS: MAGNESIUM OXIDE 400 MG TABLET PO SCH ×3 (09:14→20:46)
[2019-03-17] MEDS: levETIRAcetam 500 MG TABLET PO SCH ×2 (09:14→20:45)
[2019-03-17] MEDS: risperiDONE 1 MG TABLET. PO SCH ×2 (09:14→17:40)
[2019-03-17] MEDS: RIVASTIGMINE 9.5MG PATCH. TD SCH (09:15)
[2019-03-17] MEDS: PANTOPRAZOLE 40 MG TABLET. PO SCH (09:15)
[2019-03-17] MEDS: IPRATROPIUM BROMIDE 0.06% NASAL SPRAY 15ML BOTTLE NS SCH ×2 (09:17→21:00)
[2019-03-17 11:07] LABS: HEMOGLOBIN A1C 5.9 % (4.8-5.6)
[2019-03-17 15:53] VITALS: BP 177/96
[2019-03-17] MEDS: CHOLECALCIFEROL (VITAMIN D3) 50,000 UNIT CAPSULE PO SCH (17:41)
[2019-03-17] MEDS: traZODone 150 MG TABLET. PO SCH (20:45)
[2019-03-17] MEDS: risperiDONE 2 MG TABLET. PO SCH (20:45)
--- NOTE | 2019-03-18 03:48 | PN ---
DATE: 03/17/2019 SUBJECTIVE: The patient was seen today, met with the staff, chart reviewed. The patient continues to focus on his problems with bleeding and needing the breathing treatment. The patient is also anxious, nervous, also having involuntary movements of upper extremities. The patient was seen by Dr. Downey. The patient also had a CT scan, which was within normal limits. Also had a chest x-ray. The patient wanted to know when he could be discharged. OBSERVATION: VITAL SIGNS: Temperature 98, blood pressure 145/74, pulse 65, respirations 16, O2 sat 93%. Slept about 4 hours last night. CURRENT MEDICATIONS: Include Exelon patch 1 daily, Risperdal 1 mg twice a day, Keppra 500 mg b.i.d., trazodone 50 mg at night. The patient is not having any side effects. LABORATORY DATA: The patient's lab reviewed, RBC 3.59, hemoglobin 10.6, hemoglobin A1c 5.9, also has abnormal lipid profile. ASSESSMENT: 1. Schizophrenia, paranoid type. 2. Posttraumatic stress disorder. 3. Dementia, most likely vascular with behavior problems. CLINTON LEBRON MD DR: ERIC/demetrius JOB#: [id number] / [id number]
[2019-03-18 06:08] VITALS: BP 167/76
[2019-03-18] MEDS: RIVASTIGMINE 9.5MG PATCH. TD SCH (08:26)
[2019-03-18] MEDS: PANTOPRAZOLE 40 MG TABLET. PO SCH (08:26)
[2019-03-18] MEDS: levETIRAcetam 500 MG TABLET PO SCH ×2 (08:26→20:44)
[2019-03-18] MEDS: NICOTINE 14MG PATCH. TD SCH (08:26)
[2019-03-18] MEDS: risperiDONE 1 MG TABLET. PO SCH ×2 (08:26→17:00)
[2019-03-18] MEDS: CARVEDILOL 12.5 MG TABLET PO SCH ×2 (08:27→17:00)
[2019-03-18] MEDS: PRIMIDONE 50 MG TABLET PO SCH ×3 (08:27→20:44)
[2019-03-18] MEDS: MAGNESIUM OXIDE 400 MG TABLET PO SCH ×3 (08:27→20:44)
[2019-03-18] MEDS: IPRATROPIUM BROMIDE 0.06% NASAL SPRAY 15ML BOTTLE NS SCH ×2 (08:28→20:44)
[2019-03-18] MEDS: ROFLUMILAST 500 MCG TABLET PO SCH (08:28)
[2019-03-18] MEDS: IPRATRPIUM/ALBUTEROL 0.5/2.5MG 3 ML NEBU. NEB SCH ×3 (10:09→20:36)
[2019-03-18 15:46] VITALS: BP 155/86
[2019-03-18] MEDS: risperiDONE 2 MG TABLET. PO SCH (20:44)
[2019-03-18] MEDS: traZODone 150 MG TABLET. PO SCH (20:44)
--- NOTE | 2019-03-18 23:59 | PN ---
DATE: 03/18/2019 SUBJECTIVE: The patient was seen today, met with the staff, chart reviewed. The patient's behavior continues to improve. The patient is still anxious and nervous. The patient has involuntary movements of upper extremities. The patient was seen by Dr. Downey. The patient denies of any other problems. The patient is able to walk. The patient is wanting to know when he could be discharged. OBSERVATION: VITAL SIGNS: Temperature 98.0, blood pressure 145/74, pulse 65, respirations 16, O2 sat 93%. Slept about 4 hours last night. CURRENT MEDICATIONS: The patient's current medications include Risperdal 1 mg twice a day, Keppra 500 mg b.i.d., trazodone 50 mg at night, Exelon patch daily. The patient's lab reviewed, within the normal range. No change from the previous level. ASSESSMENT: Schizophrenia, paranoid type, posttraumatic stress disorder, dementia, most likely vascular with behavior problems. LENGTH OF STAY: 3-5 days. CLINTON LEBRON MD DR: ERIC/demetrius JOB#: [id number] / [id number]
[2019-03-19] MEDS: IPRATRPIUM/ALBUTEROL 0.5/2.5MG 3 ML NEBU. NEB SCH ×3 (05:16→21:03)
[2019-03-19 05:41] VITALS: BP 152/70
[2019-03-19] MEDS: RIVASTIGMINE 9.5MG PATCH. TD SCH (08:04)
[2019-03-19] MEDS: NICOTINE 14MG PATCH. TD SCH (08:04)
[2019-03-19] MEDS: MAGNESIUM OXIDE 400 MG TABLET PO SCH ×3 (08:05→20:32)
[2019-03-19] MEDS: PRIMIDONE 50 MG TABLET PO SCH ×2 (08:06→13:59)
[2019-03-19] MEDS: levETIRAcetam 500 MG TABLET PO SCH ×2 (08:06→20:32)
[2019-03-19] MEDS: risperiDONE 1 MG TABLET. PO SCH ×2 (08:07→18:11)
[2019-03-19] MEDS: CARVEDILOL 12.5 MG TABLET PO SCH ×2 (08:07→18:11)
[2019-03-19] MEDS: PANTOPRAZOLE 40 MG TABLET. PO SCH (08:07)
[2019-03-19] MEDS: IPRATROPIUM BROMIDE 0.06% NASAL SPRAY 15ML BOTTLE NS SCH ×2 (08:07→20:31)
[2019-03-19] MEDS: ROFLUMILAST 500 MCG TABLET PO SCH (08:07)
[2019-03-19 15:37] VITALS: BP 181/97
[2019-03-19] MEDS: traZODone 150 MG TABLET. PO SCH (20:32)
[2019-03-19] MEDS: risperiDONE 2 MG TABLET. PO SCH (20:32)
[2019-03-19] MEDS: rOPINIRole 0.5 MG TABLET. PO SCH (20:35)
[2019-03-19] MEDS ORDERED: clonazePAM 0.5 MG TABLET PO ONE (23:45)
[2019-03-20] MEDS: IPRATRPIUM/ALBUTEROL 0.5/2.5MG 3 ML NEBU. NEB SCH ×3 (05:08→20:13)
[2019-03-20 06:14] VITALS: BP 156/74
[2019-03-20] MEDS: NICOTINE 14MG PATCH. TD SCH (07:40)
[2019-03-20] MEDS: RIVASTIGMINE 9.5MG PATCH. TD SCH (07:40)
[2019-03-20] MEDS: risperiDONE 1 MG TABLET. PO SCH ×2 (07:40→17:00)
[2019-03-20] MEDS: PANTOPRAZOLE 40 MG TABLET. PO SCH (07:41)
[2019-03-20] MEDS: levETIRAcetam 500 MG TABLET PO SCH ×2 (07:47→20:09)
[2019-03-20] MEDS: CARVEDILOL 12.5 MG TABLET PO SCH ×2 (07:47→17:00)
[2019-03-20] MEDS: MAGNESIUM OXIDE 400 MG TABLET PO SCH ×3 (07:47→20:09)
[2019-03-20] MEDS: ROFLUMILAST 500 MCG TABLET PO SCH (07:47)
[2019-03-20] MEDS: rOPINIRole 0.5 MG TABLET. PO SCH ×3 (07:47→20:09)
[2019-03-20] MEDS: IPRATROPIUM BROMIDE 0.06% NASAL SPRAY 15ML BOTTLE NS SCH ×2 (07:48→20:50)
[2019-03-20 16:05] VITALS: BP 183/93
[2019-03-20] MEDS: hydrALAZINE 25 MG TABLET PO SCH ×2 (16:30→20:55)
[2019-03-20] MEDS: risperiDONE 2 MG TABLET. PO SCH (20:09)
[2019-03-20] MEDS: traZODone 150 MG TABLET. PO SCH (20:09)
[2019-03-20] MEDS: clonazePAM 0.5 MG TABLET PO PRN (23:48)
[2019-03-21] MEDS: IPRATRPIUM/ALBUTEROL 0.5/2.5MG 3 ML NEBU. NEB SCH ×3 (05:21→20:25)
[2019-03-21 06:02] VITALS: BP 165/77
[2019-03-21] MEDS: levETIRAcetam 500 MG TABLET PO SCH ×2 (07:55→19:44)
[2019-03-21] MEDS: rOPINIRole 0.5 MG TABLET. PO SCH ×3 (07:55→19:45)
[2019-03-21] MEDS: MAGNESIUM OXIDE 400 MG TABLET PO SCH ×3 (07:55→19:44)
[2019-03-21] MEDS: CARVEDILOL 12.5 MG TABLET PO SCH ×2 (07:56→16:18)
[2019-03-21] MEDS: PANTOPRAZOLE 40 MG TABLET. PO SCH (07:56)
[2019-03-21] MEDS: RIVASTIGMINE 9.5MG PATCH. TD SCH (07:56)
[2019-03-21] MEDS: hydrALAZINE 25 MG TABLET PO SCH ×3 (07:56→18:10)
[2019-03-21] MEDS: risperiDONE 1 MG TABLET. PO SCH ×2 (07:56→17:12)
[2019-03-21] MEDS: NICOTINE 14MG PATCH. TD SCH ×2 (07:57→09:00)
[2019-03-21] MEDS: ROFLUMILAST 500 MCG TABLET PO SCH (07:59)
[2019-03-21] MEDS: IPRATROPIUM BROMIDE 0.06% NASAL SPRAY 15ML BOTTLE NS SCH ×2 (08:01→19:44)
[2019-03-21 12:15] LABS: BASO # 0.1 x10^3/uL (0.0-0.2); BASO % 1 % (0-3); EOS # 0.2 x10^3/uL (0.0-0.7); EOS % 5 % (0-3); HEMATOCRIT 30.1 % (39.0-53.0); HEMOGLOBIN 10.3 g/dL (13.0-17.5); LYMPH # 0.8 x10^3/uL (1.0-4.8); LYMPH % 15 % (24-48); MEAN CORPUSCULAR HEMOGLOBIN 29 pg (25-35); MEAN CORPUSCULAR HGB CONC 34 g/dL (31-37); MEAN CORPUSCULAR VOLUME 86 fL (79-100); MONO # 0.5 x10^3/uL (0.0-1.1); MONO % 9 % (0-9); NEUT # 3.8 x10^3uL (1.8-7.7); NEUT % 71 % (31-73); PLATELET COUNT 150 x10^3/uL (140-400); RED CELL DISTRIBUTION WIDTH 15.3 % (11.5-14.5); WHITE BLOOD COUNT 5.4 x10^3/uL (4.0-11.0)
[2019-03-21 12:28] LABS: ALBUMIN 3.2 g/dL (3.4-5.0); ALBUMIN/GLOBULIN RATIO 1.1 (1.0-1.7); CALCIUM 8.6 mg/dL (8.5-10.1); CREATININE 1.3 mg/dL (0.7-1.3); GFR 54.6; POTASSIUM 5.2 mmol/L (3.5-5.1); TOTAL BILIRUBIN 0.2 mg/dL (0.2-1.0); TOTAL PROTEIN 6.2 g/dL (6.4-8.2)
[2019-03-21] MEDS: clonazePAM 0.5 MG TABLET PO PRN (16:20)
[2019-03-21 16:35] VITALS: BP 180/110
[2019-03-21] MEDS: risperiDONE 2 MG TABLET. PO SCH (19:45)
[2019-03-21] MEDS: MIRTAZAPINE 7.5 MG TABLET. PO SCH (19:46)
[2019-03-21] MEDS: traZODone 150 MG TABLET. PO SCH (19:46)
--- NOTE | 2019-03-21 22:55 | PDOC ---
Exam Note: Sukhwinder Note: Please also refer to the separate dictated note~for this date of service dictated separately. Discussed the patient with Nursing staff reviewed the chart.~Reviewed interim history and current functioning. Reviewed vital signs,~Labs/ Radiology~and current medications noted below. Continue current treatment with the changes noted in the dictated addendum note Assessment: Vital Signs: Vital Signs Date Time Temp Pulse Resp B/P (MAP) Pulse Ox O2 Delivery O2 Flow Rate FiO2 03/21/19 20:28 98 Room Air 03/21/19 18:10 73 183/81 03/21/19 16:35 97.6 18 I&O Intake and Output 03/21/19 06:59 Intake Total 1800 ml Balance 1800 ml Intake Oral 1800 ml Labs: Laboratory Tests Test 03/21/19 12:08 White Blood Count 5.4 x10^3/uL (4.0-11.0) Red Blood Count 3.50 x10^6/uL (4.30-5.70) L Hemoglobin 10.3 g/dL (13.0-17.5) L Hematocrit 30.1 % (39.0-53.0) L Mean Corpuscular Volume 86 fL (79-100) Mean Corpuscular Hemoglobin 29 pg (25-35) Mean Corpuscular Hemoglobin Concent 34 g/dL (31-37) Red Cell Distribution Width 15.3 % (11.5-14.5) H Platelet Count 150 x10^3/uL (140-400) Neutrophils (%) (Auto) 71 % (31-73) Lymphocytes (%) (Auto) 15 % (24-48) L Monocytes (%) (Auto) 9 % (0-9) Eosinophils (%) (Auto) 5 % (0-3) H Basophils (%) (Auto) 1 % (0-3) Neutrophils # (Auto) 3.8 x10^3uL (1.8-7.7) Lymphocytes # (Auto) 0.8 x10^3/uL (1.0-4.8) L Monocytes # (Auto) 0.5 x10^3/uL (0.0-1.1) Eosinophils # (Auto) 0.2 x10^3/uL (0.0-0.7) Basophils # (Auto) 0.1 x10^3/uL (0.0-0.2) Sodium Level 129 mmol/L (136-145) L Potassium Level 5.2 mmol/L (3.5-5.1) H Chloride Level 95 mmol/L (98-107) L Carbon Dioxide Level 30 mmol/L (21-32) Anion Gap 4 (6-14) L Blood Urea Nitrogen 21 mg/dL (8-26) Creatinine 1.3 mg/dL (0.7-1.3) Estimated GFR (Cockcroft-Gault) 54.6 BUN/Creatinine Ratio 16 (6-20) Glucose Level 93 mg/dL (70-99) Calcium Level 8.6 mg/dL (8.5-10.1) Total Bilirubin 0.2 mg/dL (0.2-1.0) Aspartate Amino Transferase (AST) 17 U/L (15-37) Alanine Aminotransferase (ALT) 19 U/L (16-63) Alkaline Phosphatase 71 U/L (46-116) Total Protein 6.2 g/dL (6.4-8.2) L Albumin 3.2 g/dL (3.4-5.0) L Albumin/Globulin Ratio 1.1 (1.0-1.7) Current Medications: Meds: Current Medications Acetaminophen (Tylenol) 650 mg PRN Q4HRS PRN PO fever; Start 03/15/19 at 17:15; Status Cancel Multi-Ingredient Ointment (Analgesic [place]) 1 massiel PRN QID PRN TP MUSCLE PAIN; Start 03/15/19 at 18:00 Al Hydroxide/Mg Hydroxide (Mylanta Plus Xs) 15 ml PRN AFTMEALHC PRN PO DY SPEPSIA; Start 03/15/19 at 18:00 Magnesium Hydroxide (Milk Of Magnesia) 2,400 mg PRN QHS PRN PO CONSTIPATION; Start 03/15/19 at 18:00 Nicotine (Nicoderm Cq 14mg) 1 patch DAILY TD Last administered on 03/18/19at 08:26; Start 03/16/19 at 09:00 Risperidone (RisperDAL) 1 mg BIDWMEALS PO Last administered on 03/21/19at 17:12; Start 03/16/19 at 08:00 Risperidone (RisperDAL) 2 mg QHS PO Last administered on 03/21/19at 19:45; Start 03/15/19 at 21:00 Rivastigmine (Exelon) 1 patch DAILY TD Last administered on 03/21/19 07:56; Start 03/16/19 at 09:00 Trazodone HCl (Desyrel) 150 mg QHS PO Last administered on 03/21/19 19:46; Start 03/15/19 at 21:00 Acetaminophen (Tylenol) 650 mg PRN Q4HRS PRN PO PAIN / TEMP; Start 03/15/19 at 18:45 Albuterol/ Ipratropium (Duoneb) 3 ml TID NEB Last administered on 03/21/19 20:25; Start 03/15/19 at 21:00 Carvedilol (Coreg) 12.5 mg BIDWMEALS PO Last administered on 03/21/19 16:18; Start 03/16/19 at 08:00 Levetiracetam (Keppra) 500 mg BID PO Last administered on 03/21/19 19:44; Start 03/15/19 at 21:00 Magnesium Oxide (Magnesium Oxide) 400 mg TID PO Last administered on 03/17/19 13:23; Start 03/15/19 at 21:00; Stop 03/17/19 at 16:17; Status DC Pantoprazole Sodium (Protonix) 40 mg DAILY PO Last administered on 03/21/19 07:56; Start 03/16/19 at 09:00 Primidone (Mysoline) 25 mg TID PO Last administered on 03/19/19 13:59; Start 03/15/19 at 21:00; Stop 03/19/19 at 14:01; Status DC Roflumilast (Daliresp) 500 mcg DAILY PO Last administered on 03/21/19 07:59; Start 03/16/19 at 09:00 Ipratropium [place] (Atrovent Nasal) 2 spray BID NS Last administered on 03/21/19 19:44; Start 03/15/19 at 21:00 Albuterol Sulfate (Ventolin) 2.5 mg PRN Q2HR PRN NEB SHORTNESS OF BREATH Last administered on 03/16/19 22:06; Start 03/16/19 at 19:45 Vitamin D (Vitamin D3) 50,000 unit WEEKLY PO Last administered on 5/16/19at 17:41; Start 03/17/19 at 16:15 Magnesium Oxide (Magnesium Oxide) 800 mg TID PO Last administered on 03/21/19 19:44; Start 03/17/19 at 21:00 Ropinirole HCl (Requip) 0.5 mg TID PO Last administered on 03/21/19 19:45; Start 03/19/19 at 21:00 Clonazepam (KlonoPIN) 0.5 mg 1X ONCE PO Last administered on 03/19/19at 23:52; Start 03/19/19 at 23:45; Stop 03/19/19 at 23:47; Status DC Clonazepam (KlonoPIN) 0.5 mg PRN QHS PRN PO INSOMNIA Last administered on 03/21/19 16:20; Start 03/20/19 at 12:00 Hydralazine HCl (Apresoline) 25 mg TID PO Last administered on 03/21/19at 18:10; Start 03/20/19 at 16:30 Mirtazapine (Remeron) 7.5 mg QHS PO Last administered on 03/21/19at 19:46; Start 03/21/19 at 21:00 Active Scripts Active Reported Tylenol (Acetaminophen) 325 Mg Tablet 2 Tab PO PRN Q4HRS PRN Mag-Oxide (Magnesium Oxide) 400 Mg Tablet 1 Tab PO TID Trazodone Hcl 150 Mg Tablet 150 Mg PO QHS Risperdal (Risperidone) 2 Mg Tablet 2 Mg PO QHS Risperdal (Risperidone) 1 Mg Tablet 1 Mg PO BIDWMEALS Mysoline (Primidone) 50 Mg Tablet 25 Mg PO TID Keppra (Levetiracetam) 500 Mg Tablet 500 Mg PO BID EXELON 9.5mg/24hr (Rivastigmine) 1 Each Patch.td24 1 Patch TD DAILY Daliresp (Roflumilast) 500 Mcg Tablet 500 Mcg PO DAILY Coreg (Carvedilol) 6.25 Mg Tablet 2 Tab PO BIDWMEALS [Atrovent solution] 2 Spr NS BID Duoneb 0.5-3(2.5) Mg/3 Ml (Albuterol/Ipratropium) 3 Ml Ampul.neb 3 Ml NEB TID Protonix (Pantoprazole Sodium) 40 Mg Tablet. 40 Mg PO DAILY I have reviewed the current psychotropics carefully including drug interactions. Risk benefit ratio favors no change other than as noted in my dictated progress note. Diagnosis: Problems: (1) Schizophrenia, paranoid type (2) Posttraumatic stress disorder (3) Vascular dementia with behavioral disturbance VEDA MCCORMACK MD March 21, 2019 22:55
[2019-03-22] MEDS: IPRATRPIUM/ALBUTEROL 0.5/2.5MG 3 ML NEBU. NEB SCH ×3 (05:21→20:35)
[2019-03-22 06:20] VITALS: BP 154/83
[2019-03-22] MEDS: NICOTINE 14MG PATCH. TD SCH (08:03)
[2019-03-22] MEDS: rOPINIRole 0.5 MG TABLET. PO SCH ×3 (08:05→19:25)
[2019-03-22] MEDS: levETIRAcetam 500 MG TABLET PO SCH ×2 (08:05→19:24)
[2019-03-22] MEDS: risperiDONE 1 MG TABLET. PO SCH ×3 (08:05→19:38)
[2019-03-22] MEDS: hydrALAZINE 25 MG TABLET PO SCH ×2 (08:05→13:53)
[2019-03-22] MEDS: MAGNESIUM OXIDE 400 MG TABLET PO SCH ×3 (08:06→19:25)
[2019-03-22] MEDS: RIVASTIGMINE 9.5MG PATCH. TD SCH (08:06)
[2019-03-22] MEDS: PANTOPRAZOLE 40 MG TABLET. PO SCH (08:06)
[2019-03-22] MEDS: CARVEDILOL 12.5 MG TABLET PO SCH ×2 (08:06→13:52)
[2019-03-22] MEDS: ROFLUMILAST 500 MCG TABLET PO SCH (08:07)
[2019-03-22] MEDS: IPRATROPIUM BROMIDE 0.06% NASAL SPRAY 15ML BOTTLE NS SCH ×2 (08:07→19:26)
[2019-03-22 16:05] VITALS: BP 156/93
--- NOTE | 2019-03-22 16:33 | PN ---
DATE: 03/21/2019 PSYCHIATRIC PROGRESS NOTE This is a late entry 03/21/2019, covers elements not covered in my initial note. SUBJECTIVE: I met with the patient the morning of 03/21/2019. The patient slept 7-1/2 hours previous night, remains somewhat restless, anxious. I addressed his history at length and this is reflective of diagnosis of schizoaffective disorder, bipolar type, mixed with psychotic features. He denies any past alcohol abuse. He was aware of his diagnosis. After my rounds with him he wanted me to come back and want to discuss an early transition back to correction. We discussed pros and cons for this. REVIEW OF SYSTEMS: No CV, , pulmonary, eye system symptoms on review. MENTAL STATUS EXAM: Oriented to himself and situation. Speech has some latency, coherent. Abstraction fair, computation impaired, language function intact, attention span short. Mood and affect somewhat anxious and labile. LABORATORY DATA: Reviewed. IMPRESSION: Schizoaffective disorder, bipolar type, mixed with psychotic features. Rest unchanged. The patient has low sodium, which could be contributed by the trazodone and Risperdal. We will repeat chemistry profile, maintain Remeron 7.5 mg p.o. at bedtime, which is being initiated. Continue Risperdal 1 mg b.i.d., Exelon patch 9.5 mg daily, trazodone 150 at bedtime, Keppra 500 b.i.d., primidone 25 mg t.i.d., Klonopin 0.5 mg at bedtime. Adjust further as clinically indicated. MAN Ashley MCCORMACK MD DR: FOZIA/demetrius JOB#: [id number] / [id number]
[2019-03-22] MEDS: traZODone 150 MG TABLET. PO SCH (19:24)
[2019-03-22] MEDS: MIRTAZAPINE 7.5 MG TABLET. PO SCH (19:25)
--- NOTE | 2019-03-22 19:53 | PDOC ---
Exam Note: Sukhwinder Note: Admission Date: March 15, 2019 at 16:35 * A recertification for continued Inpatient Psychiatric Admission must be done on Day 12, Day 18 and Day 30. Please also refer to the separate dictated note~for this date of service dictated separately.~Patient seen individually. Discussed the patient with Nursing staff reviewed the chart.~Reviewed interim history and current functioning. Reviewed vital signs,~Labs/ Radiology~and current medications noted below. Continue current treatment with the changes noted in the dictated addendum note Assessment: Vital Signs: Vital Signs Date Time Temp Pulse Resp B/P (MAP) Pulse Ox O2 Delivery O2 Flow Rate FiO2 03/22/19 19:37 71 156/93 03/22/19 16:05 98.0 18 94 03/22/19 09:38 Room Air I&O Intake and Output 03/22/19 07:00 Intake Total 1320 ml Balance 1320 ml Intake Oral 1320 ml Labs: Laboratory Tests Test 03/22/19 06:38 Cortisol AM Sample 17.36 ug/dL (4.3-22.4) Current Medications: Meds: Current Medications Acetaminophen (Tylenol) 650 mg PRN Q4HRS PRN PO fever; Start 03/15/19 at 17:15; Status Cancel Multi-Ingredient Ointment (Analgesic [place]) 1 massiel PRN QID PRN TP MUSCLE PAIN; Start 03/15/19 at 18:00 Al Hydroxide/Mg Hydroxide (Mylanta Plus Xs) 15 ml PRN AFTMEALHC PRN PO DYSPEPSIA; Start 03/15/19 at 18:00 Magnesium Hydroxide (Milk Of Magnesia) 2,400 mg PRN QHS PRN PO CONSTIPATION; Start 03/15/19 at 18:00 Nicotine (Nicoderm Cq 14mg) 1 patch DAILY TD Last administered on 03/18/19at 08:26; Start 03/16/19 at 09:00; Stop 03/22/19 at 15:34; Status DC Risperidone (RisperDAL) 1 mg BIDWMEALS PO Last administered on 03/22/19at 17:35; Start 03/16/19 at 08:00 Risperidone (RisperDAL) 2 mg QHS PO Last administered on 03/21/19at 19:45; Start 03/15/19 at 21:00; Stop 03/22/19 at 17:14; Status DC Rivastigmine (Exelon) 1 patch DAILY TD Last administered on 03/22/19 08:06; Start 03/16/19 at 09:00 Trazodone HCl (Desyrel) 150 mg QHS PO Last administered on 03/22/19 19:24; Start 03/15/19 at 21:00 Acetaminophen (Tylenol) 650 mg PRN Q4HRS PRN PO PAIN / TEMP; Start 03/15/19 at 18:45 Albuterol/ Ipratropium (Duoneb) 3 ml TID NEB Last administered on 03/22/19 09:38; Start 03/15/19 at 21:00 Carvedilol (Coreg) 12.5 mg BIDWMEALS PO Last administered on 03/22/19 13:52; Start 03/16/19 at 08:00 Levetiracetam (Keppra) 500 mg BID PO Last administered on 03/22/19 19:24; Start 03/15/19 at 21:00 Magnesium Oxide (Magnesium Oxide) 400 mg TID PO Last administered on 03/17/19 13:23; Start 03/15/19 at 21:00; Stop 03/17/19 at 16:17; Status DC Pantoprazole Sodium (Protonix) 40 mg DAILY PO Last administered on 03/22/19 08:06; Start 03/16/19 at 09:00 Primidone (Mysoline) 25 mg TID PO Last administered on 03/19/19 13:59; Start 03/15/19 at 21:00; Stop 03/19/19 at 14:01; Status DC Roflumilast (Daliresp) 500 mcg DAILY PO Last administered on 03/22/19 08:07; Start 03/16/19 at 09:00 Ipratropium [place] (Atrovent Nasal) 2 spray BID NS Last administered on 03/22/19 19:26; Start 03/15/19 at 21:00 Albuterol Sulfate (Ventolin) 2.5 mg PRN Q2HR PRN NEB SHORTNESS OF BREATH Last administered on 03/16/19 22:06; Start 03/16/19 at 19:45 Vitamin D (Vitamin D3) 50,000 unit WEEKLY PO Last administered on 03/17/19 17:41; Start 03/17/19 at 16:15 Magnesium Oxide (Magnesium Oxide) 800 mg TID PO Last administered on 03/22/19 19:25; Start 03/17/19 at 21:00 Ropinirole HCl (Requip) 0.5 mg TID PO Last administered on 03/22/19 19:25; Start 03/19/19 at 21:00 Clonazepam (KlonoPIN) 0.5 mg 1X ONCE PO Last administered on 03/19/19 23:52; Start 03/19/19 at 23:45; Stop 03/19/19 at 23:47; Status DC Clonazepam (KlonoPIN) 0.5 mg PRN QHS PRN PO INSOMNIA Last administered on 03/21/19 16:20; Start 03/20/19 at 12:00 Hydralazine HCl (Apresoline) 25 mg TID PO Last administered on 03/22/19 13:53; Start 03/20/19 at 16:30; Stop 03/22/19 at 15:35; Status DC Mirtazapine (Remeron) 7.5 mg QHS PO Last administered on 03/22/19 19:25; Start 03/21/19 at 21:00 Hydralazine HCl (Apresoline) 50 mg TID PO Last administered on 03/22/19 19:37; Start 03/22/19 at 21:00 Risperidone (RisperDAL) 2.5 mg QHS PO Last administered on 03/22/19 19:38; Start 03/22/19 at 21:00 Active Scripts Active Reported Tylenol (Acetaminophen) 325 Mg Tablet 2 Tab PO PRN Q4HRS PRN Mag-Oxide (Magnesium Oxide) 400 Mg Tablet 1 Tab PO TID Trazodone Hcl 150 Mg Tablet 150 Mg PO QHS Risperdal (Risperidone) 2 Mg Tablet 2 Mg PO QHS Risperdal (Risperidone) 1 Mg Tablet 1 Mg PO BIDWMEALS Mysoline (Primidone) 50 Mg Tablet 25 Mg PO TID Keppra (Levetiracetam) 500 Mg Tablet 500 Mg PO BID EXELON 9.5mg/24hr (Rivastigmine) 1 Each Patch.td24 1 Patch TD DAILY Daliresp (Roflumilast) 500 Mcg Tablet 500 Mcg PO DAILY Coreg (Carvedilol) 6.25 Mg Tablet 2 Tab PO BIDWMEALS [Atrovent solution] 2 Spr NS BID Duoneb 0.5-3(2.5) Mg/3 Ml (Albuterol/Ipratropium) 3 Ml Ampul.neb 3 Ml NEB TID Protonix (Pantoprazole Sodium) 40 Mg Tablet. 40 Mg PO DAILY I have reviewed the current psychotropics carefully including drug interactions. Risk benefit ratio favors no change other than as noted in my dictated progress note. Diagnosis: Problems: (1) Schizophrenia, paranoid type (2) Posttraumatic stress disorder (3) Vascular dementia with behavioral disturbance VEDA MCCORMACK MD March 22, 2019 19:53
[2019-03-22] MEDS: clonazePAM 0.5 MG TABLET PO PRN (20:19)
[2019-03-23] MEDS: IPRATRPIUM/ALBUTEROL 0.5/2.5MG 3 ML NEBU. NEB SCH ×4 (05:27→20:10)
[2019-03-23 06:17] VITALS: BP 165/76
[2019-03-23] MEDS: levETIRAcetam 500 MG TABLET PO SCH ×2 (09:12→19:09)
[2019-03-23] MEDS: ROFLUMILAST 500 MCG TABLET PO SCH (09:12)
[2019-03-23] MEDS: rOPINIRole 0.5 MG TABLET. PO SCH ×3 (09:12→19:09)
[2019-03-23] MEDS: risperiDONE 1 MG TABLET. PO SCH ×3 (09:13→19:09)
[2019-03-23] MEDS: MAGNESIUM OXIDE 400 MG TABLET PO SCH ×3 (09:13→19:09)
[2019-03-23] MEDS: PANTOPRAZOLE 40 MG TABLET. PO SCH (09:13)
[2019-03-23] MEDS: CARVEDILOL 12.5 MG TABLET PO SCH ×2 (09:13→15:43)
[2019-03-23] MEDS: RIVASTIGMINE 9.5MG PATCH. TD SCH (09:14)
[2019-03-23] MEDS: IPRATROPIUM BROMIDE 0.06% NASAL SPRAY 15ML BOTTLE NS SCH ×2 (09:14→19:10)
[2019-03-23 15:57] VITALS: BP 188/94
[2019-03-23 17:25] VITALS: BP 163/82
[2019-03-23] MEDS: MIRTAZAPINE 7.5 MG TABLET. PO SCH (19:09)
[2019-03-23] MEDS: traZODone 150 MG TABLET. PO SCH ×2 (19:09→19:20)
[2019-03-23] MEDS: clonazePAM 0.5 MG TABLET PO PRN (19:38)
--- NOTE | 2019-03-23 20:52 | PN ---
DATE: 03/22/2019 PSYCHIATRIC PROGRESS NOTE This late entry 03/22/2019 covers elements not covered in my initial note. SUBJECTIVE: I met with the patient in the evening of 03/22/2019 at length repeatedly as he was back to see me several times, wanting a specific date for his discharge. We addressed this. The patient has been wandering, otherwise compliant, attention seeking with his medications, at times wanting to go outside. Remains somewhat paranoid. REVIEW OF SYSTEMS: No CV, , pulmonary, eye, ENT system symptoms on review. MENTAL STATUS EXAM: Oriented to himself and situation. Speech is coherent, has some rapid at times. Abstraction fair, computation impaired, language function intact, attention span short. Mood and affect remain somewhat anxious, labile. LABORATORY DATA: Reviewed. IMPRESSION: Unchanged from initial note. PLAN: Increase the bedtime Risperdal from 2 mg to 2.5 mg. Maintain 1 mg twice a day during the day, Exelon 9.5 mg daily, trazodone, Keppra and primidone at the dosage mentioned in my initial note along with Klonopin 0.5 mg p.o. at bedtime. MAN Ashley MCCORMACK MD DR: FOZIA/demetrius JOB#: [id number] / [id number]
--- NOTE | 2019-03-23 21:56 | PDOC ---
Exam Note: Sukhwinder Note: Please also refer to the separate dictated note~for this date of service dictated separately.~Patient seen individually. Discussed the patient with Nursing staff reviewed the chart.~Reviewed interim history and current functioning. Reviewed vital signs,~Labs/ Radiology~and current medications noted below. Continue current treatment with the changes noted in the dictated addendum note Assessment: Vital Signs: Vital Signs Date Time Temp Pulse Resp B/P (MAP) Pulse Ox O2 Delivery O2 Flow Rate FiO2 03/23/19 20:13 100 03/23/19 19:08 64 163/82 03/23/19 16:36 Room Air 03/23/19 15:57 97.2 18 I&O Intake and Output 03/23/19 07:00 Intake Total 1800 ml Balance 1800 ml Intake Oral 1800 ml Current Medications: Meds: Current Medications Acetaminophen (Tylenol) 650 mg PRN Q4HRS PRN PO fever; Start 03/15/19 at 17:15; Status Cancel Multi-Ingredient Ointment (Analgesic [place]) 1 massiel PRN QID PRN TP MUSCLE PAIN; Start 03/15/19 at 18:00 Al Hydroxide/Mg Hydroxide (Mylanta Plus Xs) 15 ml PRN AFTMEALHC PRN PO DYSPEPSIA; Start 03/15/19 at 18:00 Magnesium Hydroxide (Milk Of Magnesia) 2,400 mg PRN QHS PRN PO CONSTIPATION; Start 03/15/19 at 18:00 Nicotine (Nicoderm Cq 14mg) 1 patch DAILY TD Last administered on 03/18/19at 08:26; Start 03/16/19 at 09:00; Stop 03/22/19 at 15:34; Status DC Risperidone (RisperDAL) 1 mg BIDWMEALS PO Last administered on 03/23/19at 17:40; Start 03/16/19 at 08:00 Risperidone (RisperDAL) 2 mg QHS PO Last administered on 03/21/19at 19:45; Start 03/15/19 at 21:00; Stop 03/22/19 at 17:14; Status DC Rivastigmine (Exelon) 1 patch DAILY TD Last administered on 03/23/19at 09:14; Start 03/16/19 at 09:00 Trazodone HCl (Desyrel) 150 mg QHS PO Last administered on 03/22/19 19:24; Start 03/15/19 at 21:00; Stop 03/23/19 at 19:21; Status DC Acetaminophen (Tylenol) 650 mg PRN Q4HRS PRN PO PAIN / TEMP; Start 03/15/19 at 18:45 Albuterol/ Ipratropium (Duoneb) 3 ml TID NEB Last administered on 03/23/19 20:10; Start 03/15/19 at 21:00 Carvedilol (Coreg) 12.5 mg BIDWMEALS PO Last administered on 03/23/19 15:43; Start 03/16/19 at 08:00 Levetiracetam (Keppra) 500 mg BID PO Last administered on 03/23/19 19:09; Start 03/15/19 at 21:00 Magnesium Oxide (Magnesium Oxide) 400 mg TID PO Last administered on 03/17/19 13:23; Start 03/15/19 at 21:00; Stop 03/17/19 at 16:17; Status DC Pantoprazole Sodium (Protonix) 40 mg DAILY PO Last administered on 03/23/19 09:13; Start 03/16/19 at 09:00 Primidone (Mysoline) 25 mg TID PO Last administered on 03/19/19 13:59; Start 03/15/19 at 21:00; Stop 03/19/19 at 14:01; Status DC Roflumilast (Daliresp) 500 mcg DAILY PO Last administered on 03/23/19 09:12; Start 03/16/19 at 09:00 Ipratropium [place] (Atrovent Nasal) 2 spray BID NS Last administered on 03/23/19 19:10; Start 03/15/19 at 21:00 Albuterol Sulfate (Ventolin) 2.5 mg PRN Q2HR PRN NEB SHORTNESS OF BREATH Last administered on 03/16/19 22:06; Start 03/16/19 at 19:45 Vitamin D (Vitamin D3) 50,000 unit WEEKLY PO Last administered on 03/17/19 17:41; Start 03/17/19 at 16:15 Magnesium Oxide (Magnesium Oxide) 800 mg TID PO Last administered on 03/23/19 19:09; Start 03/17/19 at 21:00 Ropinirole HCl (Requip) 0.5 mg TID PO Last administered on 03/23/19 19:09; Start 03/19/19 at 21:00 Clonazepam (KlonoPIN) 0.5 mg 1X ONCE PO Last administered on 03/19/19 23:52; Start 03/19/19 at 23:45; Stop 03/19/19 at 23:47; Status DC Clonazepam (KlonoPIN) 0.5 mg PRN QHS PRN PO INSOMNIA Last administered on 03/23/19 19:38; Start 03/20/19 at 12:00 Hydralazine HCl (Apresoline) 25 mg TID PO Last administered on 03/22/19 13:53; Start 03/20/19 at 16:30; Stop 03/22/19 at 15:35; Status DC Mirtazapine (Remeron) 7.5 mg QHS PO Last administered on 03/23/19 19:09; Start 03/21/19 at 21:00 Hydralazine HCl (Apresoline) 50 mg TID PO Last administered on 03/23/19 19:08; Start 03/22/19 at 21:00 Risperidone (RisperDAL) 2.5 mg QHS PO Last administered on 03/23/19 19:09; Start 03/22/19 at 21:00 Active Scripts Active Reported Tylenol (Acetaminophen) 325 Mg Tablet 2 Tab PO PRN Q4HRS PRN Mag-Oxide (Magnesium Oxide) 400 Mg Tablet 1 Tab PO TID Trazodone Hcl 150 Mg Tablet 150 Mg PO QHS Risperdal (Risperidone) 2 Mg Tablet 2 Mg PO QHS Risperdal (Risperidone) 1 Mg Tablet 1 Mg PO BIDWMEALS Mysoline (Primidone) 50 Mg Tablet 25 Mg PO TID Keppra (Levetiracetam) 500 Mg Tablet 500 Mg PO BID EXELON 9.5mg/24hr (Rivastigmine) 1 Each Patch.td24 1 Patch TD DAILY Daliresp (Roflumilast) 500 Mcg Tablet 500 Mcg PO DAILY Coreg (Carvedilol) 6.25 Mg Tablet 2 Tab PO BIDWMEALS [Atrovent solution] 2 Spr NS BID Duoneb 0.5-3(2.5) Mg/3 Ml (Albuterol/Ipratropium) 3 Ml Ampul.neb 3 Ml NEB TID Protonix (Pantoprazole Sodium) 40 Mg Tablet. 40 Mg PO DAILY I have reviewed the current psychotropics carefully including drug interactions. Risk benefit ratio favors no change other than as noted in my dictated progress note. Diagnosis: Problems: (1) Schizophrenia, paranoid type (2) Posttraumatic stress disorder (3) Vascular dementia with behavioral disturbance VEDA MCCORMACK MD March 23, 2019 21:56
[2019-03-24] MEDS: IPRATRPIUM/ALBUTEROL 0.5/2.5MG 3 ML NEBU. NEB SCH ×2 (05:13→20:29)
[2019-03-24 05:45] VITALS: BP 158/76
[2019-03-24] MEDS: MAGNESIUM OXIDE 400 MG TABLET PO SCH ×3 (07:47→19:57)
[2019-03-24] MEDS: PANTOPRAZOLE 40 MG TABLET. PO SCH (07:49)
[2019-03-24] MEDS: risperiDONE 1 MG TABLET. PO SCH ×3 (07:49→19:56)
[2019-03-24] MEDS: CHOLECALCIFEROL (VITAMIN D3) 50,000 UNIT CAPSULE PO SCH (07:49)
[2019-03-24] MEDS: levETIRAcetam 500 MG TABLET PO SCH ×2 (07:50→19:56)
[2019-03-24] MEDS: rOPINIRole 0.5 MG TABLET. PO SCH ×3 (07:50→19:56)
[2019-03-24] MEDS: ROFLUMILAST 500 MCG TABLET PO SCH (07:50)
[2019-03-24] MEDS: CARVEDILOL 12.5 MG TABLET PO SCH ×2 (07:50→17:07)
[2019-03-24] MEDS: RIVASTIGMINE 9.5MG PATCH. TD SCH (07:50)
[2019-03-24] MEDS: IPRATROPIUM BROMIDE 0.06% NASAL SPRAY 15ML BOTTLE NS SCH ×2 (07:51→19:59)
[2019-03-24 15:31] VITALS: BP 173/85
[2019-03-24] MEDS: MIRTAZAPINE 7.5 MG TABLET. PO SCH (19:56)
--- NOTE | 2019-03-24 22:24 | PDOC ---
Exam Note: Sukhwinder Note: Please also refer to the separate dictated note~for this date of service dictated separately.~Patient seen individually. Discussed the patient with Nursing staff reviewed the chart.~Reviewed interim history and current functioning. Reviewed vital signs,~Labs/ Radiology~and current medications noted below. Continue current treatment with the changes noted in the dictated addendum note Assessment: Vital Signs: Vital Signs Date Time Temp Pulse Resp B/P (MAP) Pulse Ox O2 Delivery O2 Flow Rate FiO2 03/24/19 20:31 95 Room Air 03/24/19 19:57 68 173/85 03/24/19 15:31 99.2 16 I&O Intake and Output 03/24/19 06:59 Intake Total 1140 ml Balance 1140 ml Intake Oral 1140 ml # Voids 1 Current Medications: Meds: Current Medications Acetaminophen (Tylenol) 650 mg PRN Q4HRS PRN PO fever; Start 03/15/19 at 17:15; Status Cancel Multi-Ingredient Ointment (Analgesic [place]) 1 massiel PRN QID PRN TP MUSCLE PAIN; Start 03/15/19 at 18:00 Al Hydroxide/Mg Hydroxide (Mylanta Plus Xs) 15 ml PRN AFTMEALHC PRN PO DYSPEPSIA; Start 03/15/19 at 18:00 Magnesium Hydroxide (Milk Of Magnesia) 2,400 mg PRN QHS PRN PO CONSTIPATION; Start 03/15/19 at 18:00 Nicotine (Nicoderm Cq 14mg) 1 patch DAILY TD Last administered on 03/18/19at 08:26; Start 03/16/19 at 09:00; Stop 03/22/19 at 15:34; Status DC Risperidone (RisperDAL) 1 mg BIDWMEALS PO Last administered on 03/24/19at 17:07; Start 03/16/19 at 08:00 Risperidone (RisperDAL) 2 mg QHS PO Last administered on 03/21/19at 19:45; Start 03/15/19 at 21:00; Stop 03/22/19 at 17:14; Status DC Rivastigmine (Exelon) 1 patch DAILY TD Last administered on 03/24/19at 07:50; Start 03/16/19 at 09:00 Trazodone HCl (Desyrel) 150 mg QHS PO Last administered on 03/22/19 19:24; Start 03/15/19 at 21:00; Stop 03/23/19 at 19:21; Status DC Acetaminophen (Tylenol) 650 mg PRN Q4HRS PRN PO PAIN / TEMP; Start 03/15/19 at 18:45 Albuterol/ Ipratropium (Duoneb) 3 ml TID NEB Last administered on 03/24/19 20 :29; Start 03/15/19 at 21:00 Carvedilol (Coreg) 12.5 mg BIDWMEALS PO Last administered on 03/24/19 17:07; Start 03/16/19 at 08:00 Levetiracetam (Keppra) 500 mg BID PO Last administered on 03/24/19 19:56; Start 03/15/19 at 21:00 Magnesium Oxide (Magnesium Oxide) 400 mg TID PO Last administered on 03/17/19 13:23; Start 03/15/19 at 21:00; Stop 03/17/19 at 16:17; Status DC Pantoprazole Sodium (Protonix) 40 mg DAILY PO Last administered on 03/24/19 07:49; Start 03/16/19 at 09:00 Primidone (Mysoline) 25 mg TID PO Last administered on 03/19/19 13:59; Start 03/15/19 at 21:00; Stop 03/19/19 at 14:01; Status DC Roflumilast (Daliresp) 500 mcg DAILY PO Last administered on 03/24/19 07:50; Start 03/16/19 at 09:00 Ipratropium [place] (Atrovent Nasal) 2 spray BID NS Last administered on 03/24/19 19:59; Start 03/15/19 at 21:00 Albuterol Sulfate (Ventolin) 2.5 mg PRN Q2HR PRN NEB SHORTNESS OF BREATH Last administered on 03/16/19 22:06; Start 03/16/19 at 19:45 Vitamin D (Vitamin D3) 50,000 unit WEEKLY PO Last administered on 03/24/19 07:49; Start 03/17/19 at 16:15 Magnesium Oxide (Magnesium Oxide) 800 mg TID PO Last administered on 03/24/19 19:57; Start 03/17/19 at 21:00 Ropinirole HCl (Requip) 0.5 mg TID PO Last administered on 03/24/19 19:56; Start 03/19/19 at 21:00 Clonazepam (KlonoPIN) 0.5 mg 1X ONCE PO Last administered on 03/19/19 23:52; Start 03/19/19 at 23:45; Stop 03/19/19 at 23:47; Status DC Clonazepam (KlonoPIN) 0.5 mg PRN QHS PRN PO INSOMNIA Last administered on 03/23/19 19:38; Start 03/20/19 at 12:00 Hydralazine HCl (Apresoline) 25 mg TID PO Last administered on 03/22/19 13:53; Start 03/20/19 at 16:30; Stop 03/22/19 at 15:35; Status DC Mirtazapine (Remeron) 7.5 mg QHS PO Last administered on 03/24/19 19:56; Start 03/21/19 at 21:00 Hydralazine HCl (Apresoline) 50 mg TID PO Last administered on 03/24/19 14:03; Start 03/22/19 at 21:00; Stop 03/24/19 at 18:29; Status DC Risperidone (RisperDAL) 2.5 mg QHS PO Last administered on 03/24/19 19:56; Start 03/22/19 at 21:00 Hydralazine HCl (Apresoline) 100 mg TID PO Last administered on 03/24/19 19:57; Start 03/24/19 at 21:00 Active Scripts Active Reported Tylenol (Acetaminophen) 325 Mg Tablet 2 Tab PO PRN Q4HRS PRN Mag-Oxide (Magnesium Oxide) 400 Mg Tablet 1 Tab PO TID Trazodone Hcl 150 Mg Tablet 150 Mg PO QHS Risperdal (Risperidone) 2 Mg Tablet 2 Mg PO QHS Risperdal (Risperidone) 1 Mg Tablet 1 Mg PO BIDWMEALS Mysoline (Primidone) 50 Mg Tablet 25 Mg PO TID Keppra (Levetiracetam) 500 Mg Tablet 500 Mg PO BID EXELON 9.5mg/24hr (Rivastigmine) 1 Each Patch.td24 1 Patch TD DAILY Daliresp (Roflumilast) 500 Mcg Tablet 500 Mcg PO DAILY Coreg (Carvedilol) 6.25 Mg Tablet 2 Tab PO BIDWMEALS [Atrovent solution] 2 Spr NS BID Duoneb 0.5-3(2.5) Mg/3 Ml (Albuterol/Ipratropium) 3 Ml Ampul.neb 3 Ml NEB TID Protonix (Pantoprazole Sodium) 40 Mg Tablet. 40 Mg PO DAILY I have reviewed the current psychotropics carefully including drug interactions. Risk benefit ratio favors no change other than as noted in my dictated progress note. Diagnosis: Problems: (1) Schizophrenia, paranoid type (2) Posttraumatic stress disorder (3) Vascular dementia with behavioral disturbance VEDA MCCORMACK MD March 24, 2019 22:23
[2019-03-25] MEDS: IPRATRPIUM/ALBUTEROL 0.5/2.5MG 3 ML NEBU. NEB SCH ×3 (05:33→20:33)
[2019-03-25 05:43] VITALS: BP 173/64
[2019-03-25 07:03] LABS: BASO # 0.1 x10^3/uL (0.0-0.2); BASO % 1 % (0-3); EOS # 0.2 x10^3/uL (0.0-0.7); EOS % 5 % (0-3); HEMATOCRIT 29.5 % (39.0-53.0); LYMPH # 0.9 x10^3/uL (1.0-4.8); LYMPH % 18 % (24-48); MEAN CORPUSCULAR HEMOGLOBIN 29 pg (25-35); MEAN CORPUSCULAR HGB CONC 34 g/dL (31-37); MEAN CORPUSCULAR VOLUME 87 fL (79-100); MONO # 0.5 x10^3/uL (0.0-1.1); MONO % 10 % (0-9); NEUT # 3.2 x10^3uL (1.8-7.7); NEUT % 66 % (31-73); PLATELET COUNT 121 x10^3/uL (140-400); RED BLOOD COUNT 3.41 x10^6/uL (4.30-5.70); WHITE BLOOD COUNT 4.8 x10^3/uL (4.0-11.0)
[2019-03-25 07:16] LABS: ALBUMIN 3.1 g/dL (3.4-5.0); ALBUMIN/GLOBULIN RATIO 1.1 (1.0-1.7); CALCIUM 8.9 mg/dL (8.5-10.1); CREATININE 1.1 mg/dL (0.7-1.3); GFR 66.2; POTASSIUM 4.5 mmol/L (3.5-5.1); TOTAL BILIRUBIN 0.2 mg/dL (0.2-1.0); TOTAL PROTEIN 5.9 g/dL (6.4-8.2)
[2019-03-25] MEDS: ROFLUMILAST 500 MCG TABLET PO SCH (08:17)
[2019-03-25] MEDS: RIVASTIGMINE 9.5MG PATCH. TD SCH (08:17)
[2019-03-25] MEDS: levETIRAcetam 500 MG TABLET PO SCH ×2 (08:18→19:36)
[2019-03-25] MEDS: rOPINIRole 0.5 MG TABLET. PO SCH ×3 (08:18→19:36)
[2019-03-25] MEDS: PANTOPRAZOLE 40 MG TABLET. PO SCH (08:19)
[2019-03-25] MEDS: risperiDONE 1 MG TABLET. PO SCH ×3 (08:19→19:36)
[2019-03-25] MEDS: CARVEDILOL 12.5 MG TABLET PO SCH ×2 (08:19→17:00)
[2019-03-25] MEDS: MAGNESIUM OXIDE 400 MG TABLET PO SCH ×3 (08:19→19:36)
[2019-03-25] MEDS: IPRATROPIUM BROMIDE 0.06% NASAL SPRAY 15ML BOTTLE NS SCH ×2 (08:20→19:35)
[2019-03-25 15:50] VITALS: BP 162/78
--- NOTE | 2019-03-25 16:35 | PN ---
DATE: 03/23/2019 PSYCHIATRIC PROGRESS NOTE This is a late entry 03/23/2019, covers elements not covered in my initial note. SUBJECTIVE: I met with the patient evening of 03/23/2019. The patient has been wandering, anxious, compliant. Per nursing report, he has attentions and medication seeking, especially for his breathing treatments. He had sodium and chloride low. Potassium is elevated at 5.2, sodium 129, chloride 95 . The patient has some symptoms of SIADH and could be contributed by trazodone or Risperdal and for now we will stop the trazodone and reassess labs and then decide in 2 days. He remains somewhat paranoid. REVIEW OF SYSTEMS: No CV, , pulmonary, eye system symptoms on review. MENTAL STATUS EXAM: Reasonably oriented. Speech has some latency, coherent. Abstraction fair, computation impaired, language function intact, attention span short. Mood and affect remain somewhat anxious, labile, slightly paranoid. LABORATORY DATA: Reviewed. IMPRESSION: Unchanged from initial note. PLAN: No change other than what is noted above. If you have to stop the Risperdal, we will do this, but we will initially start with stopping the trazodone for the SIADH symptoms. VEDA MCCORMACK MD DR: FOZIA/demetrius JOB#: [id number] / [id number]
[2019-03-25] MEDS: MIRTAZAPINE 7.5 MG TABLET. PO SCH (19:36)
--- NOTE | 2019-03-25 20:05 | PN ---
DATE: 03/24/2019 PSYCHIATRIC PROGRESS NOTE This late entry 03/24/2019 covers elements not covered in my initial note. SUBJECTIVE: I met with the patient in the evening of 03/24/2019 and staffed at a treatment team meeting with the entire team in the morning of 03/24/2019. The patient slept 6-1/2 hours previous night. He remains anxious, restless. Sodium and chloride are low consequent to SIADH and we stopped trazodone and may consider stopping Risperdal if electrolytes persist unchanged despite stopping the trazodone. He has been obsessive, medication seeking, anxious, restless, somewhat upset about not being discharged as planned due to his medical changes. No CV, , pulmonary, eye system symptoms on review. MENTAL STATUS EXAM: Oriented to himself and situation. Speech is coherent, a little pressured at times. Abstraction fair, computation impaired, language function intact, attention span short. Mood and affect remain somewhat anxious, obsessive, labile. LABORATORY DATA: Reviewed. IMPRESSION: Unchanged from initial note. PLAN: No change from initial note and repeat chemistry profile 03/25/2019 and decide on Risperdal. Rest unchanged for now. VEDA MCCORMACK MD DR: FOZIA/demetrius JOB#: [id number] / [id number]
--- NOTE | 2019-03-25 22:33 | PDOC ---
Exam Note: Sukhwinder Note: Please also refer to the separate dictated note~for this date of service dictated separately.~Patient seen individually. Discussed the patient with Nursing staff reviewed the chart.~Reviewed interim history and current functioning. Reviewed vital signs,~Labs/ Radiology~and current medications noted below. Continue current treatment with the changes noted in the dictated addendum note Assessment: Vital Signs: Vital Signs Date Time Temp Pulse Resp B/P (MAP) Pulse Ox O2 Delivery O2 Flow Rate FiO2 03/25/19 20:35 94 Room Air 03/25/19 19:36 81 162/78 03/25/19 15:50 97.8 16 I&O Intake and Output 03/25/19 06:59 Intake Total 1080 ml Balance 1080 ml Intake Oral 1080 ml # Voids 1 Labs: Laboratory Tests Test 03/25/19 06:32 White Blood Count 4.8 x10^3/uL (4.0-11.0) Red Blood Count 3.41 x10^6/uL (4.30-5.70) L Hemoglobin 10.0 g/dL (13.0-17.5) L Hematocrit 29.5 % (39.0-53.0) L Mean Corpuscular Volume 87 fL (79-100) Mean Corpuscular Hemoglobin 29 pg (25-35) Mean Corpuscular Hemoglobin Concent 34 g/dL (31-37) Red Cell Distribution Width 15.0 % (11.5-14.5) H Platelet Count 121 x10^3/uL (140-400) L Neutrophils (%) (Auto) 66 % (31-73) Lymphocytes (%) (Auto) 18 % (24-48) L Monocytes (%) (Auto) 10 % (0-9) H Eosinophils (%) (Auto) 5 % (0-3) H Basophils (%) (Auto) 1 % (0-3) Neutrophils # (Auto) 3.2 x10^3uL (1.8-7.7) Lymphocytes # (Auto) 0.9 x10^3/uL (1.0-4.8) L Monocytes # (Auto) 0.5 x10^3/uL (0.0-1.1) Eosinophils # (Auto) 0.2 x10^3/uL (0.0-0.7) Basophils # (Auto) 0.1 x10^3/uL (0.0-0.2) Sodium Level 128 mmol/L (136-145) L Potassium Level 4.5 mmol/L (3.5-5.1) Chloride Level 94 mmol/L (98-107) L Carbon Dioxide Level 27 mmol/L (21-32) Anion Gap 7 (6-14) Blood Urea Nitrogen 22 mg/dL (8-26) Creatinine 1.1 mg/dL (0.7-1.3) Estimated GFR (Cockcroft-Gault) 66.2 BUN/Creatinine Ratio 20 (6-20) Glucose Level 91 mg/dL (70-99) Calcium Level 8.9 mg/dL (8.5-10.1) Total Bilirubin 0.2 mg/dL (0.2-1.0) Aspartate Amino Transferase (AST) 15 U/L (15-37) Alanine Aminotransferase (ALT) 18 U/L (16-63) Alkaline Phosphatase 68 U/L (46-116) Total Protein 5.9 g/dL (6.4-8.2) L Albumin 3.1 g/dL (3.4-5.0) L Albumin/Globulin Ratio 1.1 (1.0-1.7) Current Medications: Meds: Current Medications Acetaminophen (Tylenol) 650 mg PRN Q4HRS PRN PO fever; Start 03/15/19 at 17:15; Status Cancel Multi-Ingredient Ointment (Analgesic [place]) 1 massiel PRN QID PRN TP MUSCLE PAIN; Start 03/15/19 at 18:00 Al Hydroxide/Mg Hydroxide (Mylanta Plus Xs) 15 ml PRN AFTMEALHC PRN PO DYSPEPSIA; Start 03/15/19 at 18:00 Magnesium Hydroxide (Milk Of Magnesia) 2,400 mg PRN QHS PRN PO CONSTIPATION; Start 03/15/19 at 18:00 Nicotine (Nicoderm Cq 14mg) 1 patch DAILY TD Last administered on 03/18/19at 08:26; Start 03/16/19 at 09:00; Stop 03/22/19 at 15:34; Status DC Risperidone (RisperDAL) 1 mg BIDWMEALS PO Last administered on 03/25/19at 17:00; Start 03/16/19 at 08:00 Risperidone (RisperDAL) 2 mg QHS PO Last administered on 03/21/19 19:45; Start 03/15/19 at 21:00; Stop 03/22/19 at 17:14; Status DC Rivastigmine (Exelon) 1 patch DAILY TD Last administered on 03/25/19 08:17; Start 03/16/19 at 09:00 Trazodone HCl (Desyrel) 150 mg QHS PO Last administered on 03/22/19 19:24; Start 03/15/19 at 21:00; Stop 03/23/19 at 19:21; Status DC Acetaminophen (Tylenol) 650 mg PRN Q4HRS PRN PO PAIN / TEMP; Start 03/15/19 at 18:45 Albuterol/ Ipratropium (Duoneb) 3 ml TID NEB Last administered on 03/25/19 20:33; Start 03/15/19 at 21:00 Carvedilol (Coreg) 12.5 mg BIDWMEALS PO Last administered on 03/25/19 17:00; Start 03/16/19 at 08:00 Levetiracetam (Keppra) 500 mg BID PO Last administered on 03/25/19 19:36; Start 03/15/19 at 21:00 Magnesium Oxide (Magnesium Oxide) 400 mg TID PO Last administered on 03/17/19 13:23; Start 03/15/19 at 21:00; Stop 03/17/19 at 16:17; Status DC Pantoprazole Sodium (Protonix) 40 mg DAILY PO Last administered on 03/25/19 08:19; Start 03/16/19 at 09:00 Primidone (Mysoline) 25 mg TID PO Last administered on 03/19/19 13:59; Start 03/15/19 at 21:00; Stop 03/19/19 at 14:01; Status DC Roflumilast (Daliresp) 500 mcg DAILY PO Last administered on 03/25/19 08:17; Start 03/16/19 at 09:00 Ipratropium [place] (Atrovent Nasal) 2 spray BID NS Last administered on 03/25/19 19:35; Start 03/15/19 at 21:00 Albuterol Sulfate (Ventolin) 2.5 mg PRN Q2HR PRN NEB SHORTNESS OF BREATH Last administered on 03/16/19 22:06; Start 03/16/19 at 19:45 Vitamin D (Vitamin D3) 50,000 unit WEEKLY PO Last administered on 03/24/19 07:49; Start 03/17/19 at 16:15 Magnesium Oxide (Magnesium Oxide) 800 mg TID PO Last administered on 03/25/19 19:36; Start 03/17/19 at 21:00 Ropinirole HCl (Requip) 0.5 mg TID PO Last administered on 03/25/19 19:36; Start 03/19/19 at 21:00 Clonazepam (KlonoPIN) 0.5 mg 1X ONCE PO Last administered on 03/19/19 23:52; Start 03/19/19 at 23:45; Stop 03/19/19 at 23:47; Status DC Clonazepam (KlonoPIN) 0.5 mg PRN QHS PRN PO INSOMNIA Last administered on 03/23/19 19:38; Start 03/20/19 at 12:00 Hydralazine HCl (Apresoline) 25 mg TID PO Last administered on 03/22/19 13:53; Start 03/20/19 at 16:30; Stop 03/22/19 at 15:35; Status DC Mirtazapine (Remeron) 7.5 mg QHS PO Last administered on 03/25/19 19:36; Start 03/21/19 at 21:00 Hydralazine HCl (Apresoline) 50 mg TID PO Last administered on 03/24/19 14:03; Start 03/22/19 at 21:00; Stop 03/24/19 at 18:29; Status DC Risperidone (RisperDAL) 2.5 mg QHS PO Last administered on 03/25/19 19:36; Start 03/22/19 at 21:00 Hydralazine HCl (Apresoline) 100 mg TID PO Last administered on 03/25/19 1 9:36; Start 03/24/19 at 21:00 Active Scripts Active Reported Tylenol (Acetaminophen) 325 Mg Tablet 2 Tab PO PRN Q4HRS PRN Mag-Oxide (Magnesium Oxide) 400 Mg Tablet 1 Tab PO TID Trazodone Hcl 150 Mg Tablet 150 Mg PO QHS Risperdal (Risperidone) 2 Mg Tablet 2 Mg PO QHS Risperdal (Risperidone) 1 Mg Tablet 1 Mg PO BIDWMEALS Mysoline (Primidone) 50 Mg Tablet 25 Mg PO TID Keppra (Levetiracetam) 500 Mg Tablet 500 Mg PO BID EXELON 9.5mg/24hr (Rivastigmine) 1 Each Patch.td24 1 Patch TD DAILY Daliresp (Roflumilast) 500 Mcg Tablet 500 Mcg PO DAILY Coreg (Carvedilol) 6.25 Mg Tablet 2 Tab PO BIDWMEALS [Atrovent solution] 2 Spr NS BID Duoneb 0.5-3(2.5) Mg/3 Ml (Albuterol/Ipratropium) 3 Ml Ampul.neb 3 Ml NEB TID Protonix (Pantoprazole Sodium) 40 Mg Tablet. 40 Mg PO DAILY I have reviewed the current psychotropics carefully including drug interactions. Risk benefit ratio favors no change other than as noted in my dictated progress note. Diagnosis: Problems: (1) Schizophrenia, paranoid type (2) Posttraumatic stress disorder (3) Vascular dementia with behavioral disturbance VEDA MCCORMACK MD March 25, 2019 22:33
[2019-03-26] MEDS: clonazePAM 0.5 MG TABLET PO PRN ×2 (00:46→23:26)
[2019-03-26] MEDS: ALBUTEROL SULFATE 2.5 MG/3 ML NEBU. NEB PRN ×2 (00:51→16:28)
[2019-03-26] MEDS: IPRATRPIUM/ALBUTEROL 0.5/2.5MG 3 ML NEBU. NEB SCH ×3 (05:34→21:02)
[2019-03-26 06:12] VITALS: BP 147/76
[2019-03-26] MEDS: RIVASTIGMINE 9.5MG PATCH. TD SCH (08:05)
[2019-03-26] MEDS: PANTOPRAZOLE 40 MG TABLET. PO SCH (08:05)
[2019-03-26] MEDS: levETIRAcetam 500 MG TABLET PO SCH ×2 (08:06→19:31)
[2019-03-26] MEDS: CARVEDILOL 12.5 MG TABLET PO SCH ×2 (08:06→17:00)
[2019-03-26] MEDS: MAGNESIUM OXIDE 400 MG TABLET PO SCH ×3 (08:06→19:31)
[2019-03-26] MEDS: risperiDONE 1 MG TABLET. PO SCH ×3 (08:06→19:31)
[2019-03-26] MEDS: ROFLUMILAST 500 MCG TABLET PO SCH (08:06)
[2019-03-26] MEDS: rOPINIRole 0.5 MG TABLET. PO SCH ×3 (08:06→19:30)
[2019-03-26] MEDS: IPRATROPIUM BROMIDE 0.06% NASAL SPRAY 15ML BOTTLE NS SCH ×2 (08:08→19:29)
[2019-03-26 15:32] VITALS: BP 171/81
[2019-03-26] MEDS: MIRTAZAPINE 7.5 MG TABLET. PO SCH (19:31)
--- NOTE | 2019-03-26 22:28 | PDOC ---
Exam Note: Sukhwinder Note: Please also refer to the separate dictated note~for this date of service dictated separately.~Patient seen individually. Discussed the patient with Nursing staff reviewed the chart.~Reviewed interim history and current functioning. Reviewed vital signs,~Labs/ Radiology~and current medications noted below. Continue current treatment with the changes noted in the dictated addendum note Assessment: Vital Signs: Vital Signs Date Time Temp Pulse Resp B/P (MAP) Pulse Ox O2 Delivery O2 Flow Rate FiO2 03/26/19 21:05 96 Room Air 03/26/19 19:30 82 171/81 03/26/19 15:32 98.2 19 I&O Intake and Output 03/26/19 06:59 Intake Total 1320 ml Balance 1320 ml Intake Oral 1320 ml Current Medications: Meds: Current Medications Acetaminophen (Tylenol) 650 mg PRN Q4HRS PRN PO fever; Start 03/15/19 at 17:15; Status Cancel Multi-Ingredient Ointment (Analgesic [place]) 1 massiel PRN QID PRN TP MUSCLE PAIN; Start 03/15/19 at 18:00 Al Hydroxide/Mg Hydroxide (Mylanta Plus Xs) 15 ml PRN AFTMEALHC PRN PO DYSPEPSIA; Start 03/15/19 at 18:00 Magnesium Hydroxide (Milk Of Magnesia) 2,400 mg PRN QHS PRN PO CONSTIPATION; Start 03/15/19 at 18:00 Nicotine (Nicoderm Cq 14mg) 1 patch DAILY TD Last administered on 03/18/19at 08:26; Start 03/16/19 at 09:00; Stop 03/22/19 at 15:34; Status DC Risperidone (RisperDAL) 1 mg BIDWMEALS PO Last administered on 03/26/19at 17:00; Start 03/16/19 at 08:00 Risperidone (RisperDAL) 2 mg QHS PO Last administered on 03/21/19at 19:45; Start 03/15/19 at 21:00; Stop 03/22/19 at 17:14; Status DC Rivastigmine (Exelon) 1 patch DAILY TD Last administered on 03/26/19at 08:05; Start 03/16/19 at 09:00 Trazodone HCl (Desyrel) 150 mg QHS PO Last administered on 03/22/19at 19:24; Start 03/15/19 at 21:00; Stop 03/23/19 at 19:21; Status DC Acetaminophen (Tylenol) 650 mg PRN Q4HRS PRN PO PAIN / TEMP; Start 03/15/19 at 18:45 Albuterol/ Ipratropium (Duoneb) 3 ml TID NEB Last administered on 03/26/19 21:02; Start 03/15/19 at 21:00 Carvedilol (Coreg) 12.5 mg BIDWMEALS PO Last administered on 03/26/19 17:00; Start 03/16/19 at 08:00 Levetiracetam (Keppra) 500 mg BID PO Last administered on 03/26/19 19:31; Start 03/15/19 at 21:00 Magnesium Oxide (Magnesium Oxide) 400 mg TID PO Last administered on 03/17/19 13:23; Start 03/15/19 at 21:00; Stop 03/17/19 at 16:17; Status DC Pantoprazole Sodium (Protonix) 40 mg DAILY PO Last administered on 03/26/19 08:05; Start 03/16/19 at 09:00 Primidone (Mysoline) 25 mg TID PO Last administered on 03/19/19 13:59; Start 03/15/19 at 21:00; Stop 03/19/19 at 14:01; Status DC Roflumilast (Daliresp) 500 mcg DAILY PO Last administered on 03/26/19 08:06; Start 03/16/19 at 09:00 Ipratropium [place] (Atrovent Nasal) 2 spray BID NS Last administered on 03/26/19 19:29; Start 03/15/19 at 21:00 Albuterol Sulfate (Ventolin) 2.5 mg PRN Q2HR PRN NEB SHORTNESS OF BREATH Last administered on 03/26/19 16:28; Start 03/16/19 at 19:45 Vitamin D (Vitamin D3) 50,000 unit WEEKLY PO Last administered on 03/24/19 07:49; Start 03/17/19 at 16:15 Magnesium Oxide (Magnesium Oxide) 800 mg TID PO Last administered on 03/26/19 19:31; Start 03/17/19 at 21:00 Ropinirole HCl (Requip) 0.5 mg TID PO Last administered on 03/26/19 19:30; Start 03/19/19 at 21:00 Clonazepam (KlonoPIN) 0.5 mg 1X ONCE PO Last administered on 03/19/19 23:52; Start 03/19/19 at 23:45; Stop 03/19/19 at 23:47; Status DC Clonazepam (KlonoPIN) 0.5 mg PRN QHS PRN PO INSOMNIA Last administered on 03/26/19 00:46; Start 03/20/19 at 12:00 Hydralazine HCl (Apresoline) 25 mg TID PO Last administered on 03/22/19 13:53; Start 03/20/19 at 16:30; Stop 03/22/19 at 15:35; Status DC Mirtazapine (Remeron) 7.5 mg QHS PO Last administered on 03/26/19 19:31; Start 03/21/19 at 21:00 Hydralazine HCl (Apresoline) 50 mg TID PO Last administered on 03/24/19 14:03; Start 03/22/19 at 21:00; Stop 03/24/19 at 18:29; Status DC Risperidone (RisperDAL) 2.5 mg QHS PO Last administered on 03/26/19 19:31; Start 03/22/19 at 21:00 Hydralazine HCl (Apresoline) 100 mg TID PO Last administered on 03/26/19 19:30; Start 03/24/19 at 21:00 Active Scripts Active Reported Tylenol (Acetaminophen) 325 Mg Tablet 2 Tab PO PRN Q4HRS PRN Mag-Oxide (Magnesium Oxide) 400 Mg Tablet 1 Tab PO TID Trazodone Hcl 150 Mg Tablet 150 Mg PO QHS Risperdal (Risperidone) 2 Mg Tablet 2 Mg PO QHS Risperdal (Risperidone) 1 Mg Tablet 1 Mg PO BIDWMEALS Mysoline (Primidone) 50 Mg Tablet 25 Mg PO TID Keppra (Levetiracetam) 500 Mg Tablet 500 Mg PO BID EXELON 9.5mg/24hr (Rivastigmine) 1 Each Patch.td24 1 Patch TD DAILY Daliresp (Roflumilast) 500 Mcg Tablet 500 Mcg PO DAILY Coreg (Carvedilol) 6.25 Mg Tablet 2 Tab PO BIDWMEALS [Atrovent solution] 2 Spr NS BID Duoneb 0.5-3(2.5) Mg/3 Ml (Albuterol/Ipratropium) 3 Ml Ampul.neb 3 Ml NEB TID Protonix (Pantoprazole Sodium) 40 Mg Tablet. 40 Mg PO DAILY I have reviewed the current psychotropics carefully including drug interactions. Risk benefit ratio favors no change other than as noted in my dictated progress note. Diagnosis: Problems: (1) Schizophrenia, paranoid type (2) Posttraumatic stress disorder (3) Vascular dementia with behavioral disturbance VEDA MCCORMACK MD March 26, 2019 22:28
[2019-03-27] MEDS: IPRATRPIUM/ALBUTEROL 0.5/2.5MG 3 ML NEBU. NEB SCH ×3 (05:44→19:56)
[2019-03-27 06:48] VITALS: BP 174/81
[2019-03-27] MEDS: risperiDONE 1 MG TABLET. PO SCH ×3 (07:56→19:43)
[2019-03-27] MEDS: IPRATROPIUM BROMIDE 0.06% NASAL SPRAY 15ML BOTTLE NS SCH ×2 (07:56→19:44)
[2019-03-27] MEDS: levETIRAcetam 500 MG TABLET PO SCH ×2 (07:56→19:42)
[2019-03-27] MEDS: CARVEDILOL 12.5 MG TABLET PO SCH ×2 (07:56→18:12)
[2019-03-27] MEDS: rOPINIRole 0.5 MG TABLET. PO SCH ×3 (07:56→19:43)
[2019-03-27] MEDS: RIVASTIGMINE 9.5MG PATCH. TD SCH (07:56)
[2019-03-27] MEDS: ROFLUMILAST 500 MCG TABLET PO SCH (07:57)
[2019-03-27] MEDS: MAGNESIUM OXIDE 400 MG TABLET PO SCH ×3 (07:57→19:43)
[2019-03-27] MEDS: PANTOPRAZOLE 40 MG TABLET. PO SCH (07:57)
[2019-03-27 15:53] VITALS: BP 162/60
--- NOTE | 2019-03-27 19:26 | PN ---
DATE: 03/25/2019 PSYCHIATRIC PROGRESS NOTE This late entry 03/25/2019 covers elements not covered in my initial note 03/25/2019. SUBJECTIVE: I met with the patient in the evening of 03/25/2019. The patient slept 8-1/4 hours previous night. Sodium 128 and further review of his records indicates that he has had hyponatremia going back about a year or more. We will start V8 juice for him twice a day to help with electrolytes. REVIEW OF SYSTEMS: No CV, , pulmonary, eye, ENT system symptoms on review. MENTAL STATUS EXAM: Oriented to himself and situation. Speech is coherent, has some latency. Abstraction fair, computation impaired, language function intact, attention span short. Mood and affect, somewhat anxious at times. LABORATORY DATA: Reviewed. IMPRESSION: Unchanged from initial note. PLAN: No change from initial note. MAN Ashley MCCORMACK MD DR: FOZIA/demetrius JOB#: [id number] / [id number]
[2019-03-27] MEDS: MIRTAZAPINE 7.5 MG TABLET. PO SCH (19:44)
--- NOTE | 2019-03-27 22:21 | PDOC ---
Exam Note: Sukhwinder Note: Please also refer to the separate dictated note~for this date of service dictated separately.~Patient seen individually. Discussed the patient with Nursing staff reviewed the chart.~Reviewed interim history and current functioning. Reviewed vital signs,~Labs/ Radiology~and current medications noted below. Continue current treatment with the changes noted in the dictated addendum note Assessment: Vital Signs: Vital Signs Date Time Temp Pulse Resp B/P (MAP) Pulse Ox O2 Delivery O2 Flow Rate FiO2 03/27/19 19:57 98 Room Air 03/27/19 19:43 80 162/60 03/27/19 15:53 98.2 18 I&O Intake and Output 03/27/19 07:00 Intake Total 1440 ml Balance 1440 ml Intake Oral 1440 ml Current Medications: Meds: Current Medications Acetaminophen (Tylenol) 650 mg PRN Q4HRS PRN PO fever; Start 03/15/19 at 17:15; Status Cancel Multi-Ingredient Ointment (Analgesic [place]) 1 massiel PRN QID PRN TP MUSCLE PAIN; Start 03/15/19 at 18:00 Al Hydroxide/Mg Hydroxide (Mylanta Plus Xs) 15 ml PRN AFTMEALHC PRN PO DYSPEPSIA; Start 03/15/19 at 18:00 Magnesium Hydroxide (Milk Of Magnesia) 2,400 mg PRN QHS PRN PO CONSTIPATION; Start 03/15/19 at 18:00 Nicotine (Nicoderm Cq 14mg) 1 patch DAILY TD Last administered on 03/18/19at 08:26; Start 03/16/19 at 09:00; Stop 03/22/19 at 15:34; Status DC Risperidone (RisperDAL) 1 mg BIDWMEALS PO Last administered on 03/27/19at 18:12; Start 03/16/19 at 08:00 Risperidone (RisperDAL) 2 mg QHS PO Last administered on 03/21/19at 19:45; Start 03/15/19 at 21:00; Stop 03/22/19 at 17:14; Status DC Rivastigmine (Exelon) 1 patch DAILY TD Last administered on 03/27/19at 07:56; Start 03/16/19 at 09:00 Trazodone HCl (Desyrel) 150 mg QHS PO Last administered on 03/22/19at 19:24; Start 03/15/19 at 21:00; Stop 03/23/19 at 19:21; Status DC Acetaminophen (Tylenol) 650 mg PRN Q4HRS PRN PO PAIN / TEMP; Start 03/15/19 at 18:45 Albuterol/ Ipratropium (Duoneb) 3 ml TID NEB Last administered on 03/27/19 19:56; Start 03/15/19 at 21:00 Carvedilol (Coreg) 12.5 mg BIDWMEALS PO Last administered on 03/27/19 18:12; Start 03/16/19 at 08:00 Levetiracetam (Keppra) 500 mg BID PO Last administered on 03/27/19 19:42; Start 03/15/19 at 21:00 Magnesium Oxide (Magnesium Oxide) 400 mg TID PO Last administered on 03/17/19 13:23; Start 03/15/19 at 21:00; Stop 03/17/19 at 16:17; Status DC Pantoprazole Sodium (Protonix) 40 mg DAILY PO Last administered on 03/27/19 07:57; Start 03/16/19 at 09:00 Primidone (Mysoline) 25 mg TID PO Last administered on 03/19/19 13:59; Start 03/15/19 at 21:00; Stop 03/19/19 at 14:01; Status DC Roflumilast (Daliresp) 500 mcg DAILY PO Last administered on 03/27/19 07:57; Start 03/16/19 at 09:00 Ipratropium [place] (Atrovent Nasal) 2 spray BID NS Last administered on 03/27/19 19:44; Start 03/15/19 at 21:00 Albuterol Sulfate (Ventolin) 2.5 mg PRN Q2HR PRN NEB SHORTNESS OF BREATH Last administered on 03/26/19 16:28; Start 03/16/19 at 19:45 Vitamin D (Vitamin D3) 50,000 unit WEEKLY PO Last administered on 03/24/19 07:49; Start 03/17/19 at 16:15 Magnesium Oxide (Magnesium Oxide) 800 mg TID PO Last administered on 03/27/19 19:43; Start 03/17/19 at 21:00 Ropinirole HCl (Requip) 0.5 mg TID PO Last administered on 03/27/19 19:43; Start 03/19/19 at 21:00 Clonazepam (KlonoPIN) 0.5 mg 1X ONCE PO Last administered on 03/19/19 23:52; Start 03/19/19 at 23:45; Stop 03/19/19 at 23:47; Status DC Clonazepam (KlonoPIN) 0.5 mg PRN QHS PRN PO INSOMNIA Last administered on 03/26/19 23:26; Start 03/20/19 at 12:00 Hydralazine HCl (Apresoline) 25 mg TID PO Last administered on 03/22/19 13:53; Start 03/20/19 at 16:30; Stop 03/22/19 at 15:35; Status DC Mirtazapine (Remeron) 7.5 mg QHS PO Last administered on 03/27/19 19:44; Start 03/21/19 at 21:00 Hydralazine HCl (Apresoline) 50 mg TID PO Last administered on 03/24/19 14:03; Start 03/22/19 at 21:00; Stop 03/24/19 at 18:29; Status DC Risperidone (RisperDAL) 2.5 mg QHS PO Last administered on 03/27/19 19:43; Start 03/22/19 at 21:00 Hydralazine HCl (Apresoline) 100 mg TID PO Last administered on 03/27/19 19:43; Start 03/24/19 at 21:00 Active Scripts Active Reported Tylenol (Acetaminophen) 325 Mg Tablet 2 Tab PO PRN Q4HRS PRN Mag-Oxide (Magnesium Oxide) 400 Mg Tablet 1 Tab PO TID Trazodone Hcl 150 Mg Tablet 150 Mg PO QHS Risperdal (Risperidone) 2 Mg Tablet 2 Mg PO QHS Risperdal (Risperidone) 1 Mg Tablet 1 Mg PO BIDWMEALS [place] (Primidone) 50 Mg Tablet 25 Mg PO TID Keppra (Levetiracetam) 500 Mg Tablet 500 Mg PO BID EXELON 9.5mg/24hr (Rivastigmine) 1 Each Patch.td24 1 Patch TD DAILY Daliresp (Roflumilast) 500 Mcg Tablet 500 Mcg PO DAILY Coreg (Carvedilol) 6.25 Mg Tablet 2 Tab PO BIDWMEALS [Atrovent solution] 2 Spr NS BID Duoneb 0.5-3(2.5) Mg/3 Ml (Albuterol/Ipratropium) 3 Ml Ampul.neb 3 Ml NEB TID Protonix (Pantoprazole Sodium) 40 Mg Tablet. 40 Mg PO DAILY I have reviewed the current psychotropics carefully including drug interactions. Risk benefit ratio favors no change other than as noted in my dictated progress note. Diagnosis: Problems: (1) Schizophrenia, paranoid type (2) Posttraumatic stress disorder (3) Vascular dementia with behavioral disturbance VEDA MCCORMACK MD March 27, 2019 22:21
[2019-03-27] MEDS: ALBUTEROL SULFATE 2.5 MG/3 ML NEBU. NEB PRN (23:03)
[2019-03-28] MEDS: IPRATRPIUM/ALBUTEROL 0.5/2.5MG 3 ML NEBU. NEB SCH ×3 (05:26→20:51)
[2019-03-28 06:07] VITALS: BP 136/57
[2019-03-28 07:38] LABS: BASO % 1 % (0-3); EOS # 0.2 x10^3/uL (0.0-0.7); EOS % 4 % (0-3); HEMATOCRIT 28.3 % (39.0-53.0); HEMOGLOBIN 9.5 g/dL (13.0-17.5); LYMPH # 0.6 x10^3/uL (1.0-4.8); LYMPH % 13 % (24-48); MEAN CORPUSCULAR HEMOGLOBIN 30 pg (25-35); MEAN CORPUSCULAR HGB CONC 34 g/dL (31-37); MEAN CORPUSCULAR VOLUME 88 fL (79-100); MONO # 0.5 x10^3/uL (0.0-1.1); MONO % 11 % (0-9); NEUT % 70 % (31-73); PLATELET COUNT 104 x10^3/uL (140-400); RED BLOOD COUNT 3.23 x10^6/uL (4.30-5.70); RED CELL DISTRIBUTION WIDTH 15.1 % (11.5-14.5); WHITE BLOOD COUNT 4.2 x10^3/uL (4.0-11.0)
[2019-03-28 07:46] LABS: CALCIUM 8.8 mg/dL (8.5-10.1); CREATININE 1.2 mg/dL (0.7-1.3); GFR 59.9; POTASSIUM 4.5 mmol/L (3.5-5.1); TOTAL BILIRUBIN 0.2 mg/dL (0.2-1.0); TOTAL PROTEIN 5.9 g/dL (6.4-8.2)
[2019-03-28] MEDS: PANTOPRAZOLE 40 MG TABLET. PO SCH (09:52)
[2019-03-28] MEDS: risperiDONE 1 MG TABLET. PO SCH ×3 (09:52→20:39)
[2019-03-28] MEDS: MAGNESIUM OXIDE 400 MG TABLET PO SCH ×3 (09:52→20:40)
[2019-03-28] MEDS: rOPINIRole 0.5 MG TABLET. PO SCH ×3 (09:52→20:39)
[2019-03-28] MEDS: RIVASTIGMINE 9.5MG PATCH. TD SCH (09:52)
[2019-03-28] MEDS: levETIRAcetam 500 MG TABLET PO SCH ×2 (09:52→20:39)
[2019-03-28] MEDS: IPRATROPIUM BROMIDE 0.06% NASAL SPRAY 15ML BOTTLE NS SCH ×2 (09:54→20:41)
[2019-03-28] MEDS: ROFLUMILAST 500 MCG TABLET PO SCH (09:55)
[2019-03-28 10:08] VITALS: BP 153/63
[2019-03-28] MEDS: CARVEDILOL 12.5 MG TABLET PO SCH ×2 (10:10→17:12)
--- NOTE | 2019-03-28 11:47 | PN ---
DATE: 03/27/2019 PSYCHIATRIC PROGRESS NOTE This note covers elements not covered in my initial note 03/27/2019. SUBJECTIVE: The patient was seen individually evening of 03/27/2019. The patient slept 4 hours previous night. He has been somewhat obsessive, anxious about breathing treatments and this is what he requested as I met with him. He is having some hand tremors, but no CV, GI, , ENT system symptoms on review. MENTAL STATUS EXAM: Oriented to himself and situation. Speech is coherent, rapid at times. Abstraction fair, computation impaired, language function intact, attention span short. Mood and affect somewhat anxious. LABORATORY DATA: Reviewed. IMPRESSION: Unchanged from initial note. PLAN: No change from initial note. Sodium is still low at 128, but this is probably chronic for the patient. MAN Ashley MCCORMACK MD DR: FOZIA/demetrius JOB#: [id number] / [id number]
[2019-03-28 15:59] VITALS: BP 143/68
[2019-03-28] MEDS: MIRTAZAPINE 7.5 MG TABLET. PO SCH (20:39)
[2019-03-28] MEDS ORDERED: BENZTROPINE MESYLATE 0.5 MG TABLET PO SCH (21:00)
[2019-03-28] MEDS: ALBUTEROL SULFATE 2.5 MG/3 ML NEBU. NEB PRN (22:27)
--- NOTE | 2019-03-28 22:27 | PDOC ---
Exam Note: Sukhwinder Note: Please also refer to the separate dictated note~for this date of service dictated separately.~Patient seen individually. Discussed the patient with Nursing staff reviewed the chart.~Reviewed interim history and current functioning. Reviewed vital signs,~Labs/ Radiology~and current medications noted below. Continue current treatment with the changes noted in the dictated addendum note Assessment: Vital Signs: Vital Signs Date Time Temp Pulse Resp B/P (MAP) Pulse Ox O2 Delivery O2 Flow Rate FiO2 03/28/19 20:53 100 Room Air 03/28/19 20:39 85 143/68 03/28/19 15:59 99.0 16 I&O Intake and Output 03/28/19 06:59 Intake Total 1440 ml Balance 1440 ml Intake Oral 1440 ml Labs: Laboratory Tests Test 03/28/19 06:30 White Blood Count 4.2 x10^3/uL (4.0-11.0) Red Blood Count 3.23 x10^6/uL (4.30-5.70) L Hemoglobin 9.5 g/dL (13.0-17.5) L Hematocrit 28.3 % (39.0-53.0) L Mean Corpuscular Volume 88 fL (79-100) Mean Corpuscular Hemoglobin 30 pg (25-35) Mean Corpuscular Hemoglobin Concent 34 g/dL (31-37) Red Cell Distribution Width 15.1 % (11.5-14.5) H Platelet Count 104 x10^3/uL (140-400) L Neutrophils (%) (Auto) 70 % (31-73) Lymphocytes (%) (Auto) 13 % (24-48) L Monocytes (%) (Auto) 11 % (0-9) H Eosinophils (%) (Auto) 4 % (0-3) H Basophils (%) (Auto) 1 % (0-3) Neutrophils # (Auto) 3.0 x10^3uL (1.8-7.7) Lymphocytes # (Auto) 0.6 x10^3/uL (1.0-4.8) L Monocytes # (Auto) 0.5 x10^3/uL (0.0-1.1) Eosinophils # (Auto) 0.2 x10^3/uL (0.0-0.7) Basophils # (Auto) 0.0 x10^3/uL (0.0-0.2) Sodium Level 130 mmol/L (136-145) L Potassium Level 4.5 mmol/L (3.5-5.1) Chloride Level 96 mmol/L (98-107) L Carbon Dioxide Level 27 mmol/L (21-32) Anion Gap 7 (6-14) Blood Urea Nitrogen 22 mg/dL (8-26) Creatinine 1.2 mg/dL (0.7-1.3) Estimated GFR (Cockcroft-Gault) 59.9 BUN/Creatinine Ratio 18 (6-20) Glucose Level 98 mg/dL (70-99) Calcium Level 8.8 mg/dL (8.5-10.1) Total Bilirubin 0.2 mg/dL (0.2-1.0) Aspartate Amino Transferase (AST) 15 U/L (15-37) Alanine Aminotransferase (ALT) 17 U/L (16-63) Alkaline Phosphatase 68 U/L (46-116) Total Protein 5.9 g/dL (6.4-8.2) L Albumin 3.0 g/dL (3.4-5.0) L Albumin/Globulin Ratio 1.0 (1.0-1.7) Current Medications: Meds: Current Medications Acetaminophen (Tylenol) 650 mg PRN Q4HRS PRN PO fever; Start 03/15/19 at 17:15; Status Cancel Multi-Ingredient Ointment (Analgesic [place]) 1 massiel PRN QID PRN TP MUSCLE PAIN; Start 03/15/19 at 18:00 Al Hydroxide/Mg Hydroxide (Mylanta Plus Xs) 15 ml PRN AFTMEALHC PRN PO DYSPEPSIA; Start 03/15/19 at 18:00 Magnesium Hydroxide (Milk Of Magnesia) 2,400 mg PRN QHS PRN PO CONSTIPATION; Start 03/15/19 at 18:00 Nicotine (Nicoderm Cq 14mg) 1 patch DAILY TD Last administered on 03/18/19at 08:26; Start 03/16/19 at 09:00; Stop 03/22/19 at 15:34; Status DC Risperidone (RisperDAL) 1 mg BIDWMEALS PO Last administered on 03/28/19at 17:11; Start 03/16/19 at 08:00 Risperidone (RisperDAL) 2 mg QHS PO Last administered on 03/21/19 19:45; Start 03/15/19 at 21:00; Stop 03/22/19 at 17:14; Status DC Rivastigmine (Exelon) 1 patch DAILY TD Last administered on 03/28/19 09:52; Start 03/16/19 at 09:00 Trazodone HCl (Desyrel) 150 mg QHS PO Last administered on 03/22/19 19:24; Start 03/15/19 at 21:00; Stop 03/23/19 at 19:21; Status DC Acetaminophen (Tylenol) 650 mg PRN Q4HRS PRN PO PAIN / TEMP; Start 03/15/19 at 18:45 Albuterol/ Ipratropium (Duoneb) 3 ml TID NEB Last administered on 03/28/19 20:51; Start 03/15/19 at 21:00 Carvedilol (Coreg) 12.5 mg BIDWMEALS PO Last administered on 03/28/19 17:12; Start 03/16/19 at 08:00 Levetiracetam (Keppra) 500 mg BID PO Last administered on 03/28/19 20:39; Start 03/15/19 at 21:00 Magnesium Oxide (Magnesium Oxide) 400 mg TID PO Last administered on 03/17/19 13:23; Start 03/15/19 at 21:00; Stop 03/17/19 at 16:17; Status DC Pantoprazole Sodium (Protonix) 40 mg DAILY PO Last administered on 03/28/19 09:52; Start 03/16/19 at 09:00 Primidone (Mysoline) 25 mg TID PO Last administered on 03/19/19 13:59; Start 03/15/19 at 21:00; Stop 03/19/19 at 14:01; Status DC Roflumilast (Daliresp) 500 mcg DAILY PO Last administered on 03/28/19 09:55; Start 03/16/19 at 09:00 Ipratropium [place] (Atrovent Nasal) 2 spray BID NS Last administered on 03/28/19 20:41; Start 03/15/19 at 21:00 Albuterol Sulfate (Ventolin) 2.5 mg PRN Q2HR PRN NEB SHORTNESS OF BREATH Last administered on 03/27/19 23:03; Start 03/16/19 at 19:45 Vitamin D (Vitamin D3) 50,000 unit WEEKLY PO Last administered on 03/24/19 07:49; Start 03/17/19 at 16:15 Magnesium Oxide (Magnesium Oxide) 800 mg TID PO Last administered on 03/28/19 20:40; Start 03/17/19 at 21:00 Ropinirole HCl (Requip) 0.5 mg TID PO Last administered on 03/28/19 20:39; Start 03/19/19 at 21:00 Clonazepam (KlonoPIN) 0.5 mg 1X ONCE PO Last administered on 03/19/19 23:52; Start 03/19/19 at 23:45; Stop 03/19/19 at 23:47; Status DC Clonazepam (KlonoPIN) 0.5 mg PRN QHS PRN PO INSOMNIA Last administered on 03/26/19 23:26; Start 03/20/19 at 12:00 Hydralazine HCl (Apresoline) 25 mg TID PO Last administered on 03/22/19 13:53; Start 03/20/19 at 16:30; Stop 03/22/19 at 15:35; Status DC Mirtazapine (Remeron) 7.5 mg QHS PO Last administered on 03/28/19 20:39; Start 03/21/19 at 21:00 Hydralazine HCl (Apresoline) 50 mg TID PO Last administered on 03/24/19 14:03; Start 03/22/19 at 21:00; Stop 03/24/19 at 18:29; Status DC Risperidone (RisperDAL) 2.5 mg QHS PO Last administered on 03/28/19 20:39; Start 03/22/19 at 21:00 Hydralazine HCl (Apresoline) 100 mg TID PO Last administered on 03/28/19 20:39; Start 03/24/19 at 21:00 Benztropine Mesylate (Cogentin) 0.5 mg QHS PO Last administered on 03/28/19 21:28; Start 03/28/19 at 21:00 Active Scripts Active Reported Tylenol (Acetaminophen) 325 Mg Tablet 2 Tab PO PRN Q4HRS PRN Mag-Oxide (Magnesium Oxide) 400 Mg Tablet 1 Tab PO TID Trazodone Hcl 150 Mg Tablet 150 Mg PO QHS Risperdal (Risperidone) 2 Mg Tablet 2 Mg PO QHS Risperdal (Risperidone) 1 Mg Tablet 1 Mg PO BIDWMEALS Mysoline (Primidone) 50 Mg Tablet 25 Mg PO TID Keppra (Levetiracetam) 500 Mg Tablet 500 Mg PO BID EXELON 9.5mg/24hr (Rivastigmine) 1 Each Patch.td24 1 Patch TD DAILY Daliresp (Roflumilast) 500 Mcg Tablet 500 Mcg PO DAILY Coreg (Carvedilol) 6.25 Mg Tablet 2 Tab PO BIDWMEALS [Atrovent solution] 2 Spr NS BID Duoneb 0.5-3(2.5) Mg/3 Ml (Albuterol/Ipratropium) 3 Ml Ampul.neb 3 Ml NEB TID Protonix (Pantoprazole Sodium) 40 Mg Tablet. 40 Mg PO DAILY I have reviewed the current psychotropics carefully including drug interactions. Risk benefit ratio favors no change other than as noted in my dictated progress note. Diagnosis: Problems: (1) Schizophrenia, paranoid type (2) Posttraumatic stress disorder (3) Vascular dementia with behavioral disturbance VEDA MCCORMACK MD March 28, 2019 22:27
--- NOTE | 2019-03-28 22:53 | PN ---
DATE: 03/28/2019 PSYCHIATRIC PROGRESS NOTE This note covers elements not covered in my initial note 03/28/2019. SUBJECTIVE: I met with the patient in the evening. The patient slept 7-1/2 hours previous night. He remains appropriate, does have fairly significant tremors, more so of his left hand and perhaps increase since we adjusted the Risperdal. Klonopin helps at night. REVIEW OF SYSTEMS: No CV, , pulmonary, eye system symptoms on review. MENTAL STATUS EXAM: Reasonably oriented. Speech is coherent, abstraction fair, computation impaired, language function intact, attention span short. Mood and affect, somewhat anxious, at times labile. LABORATORY DATA: Reviewed. IMPRESSION: Unchanged from initial note. PLAN: Start Cogentin 0.5 mg p.o. at bedtime for his tremors/EPS. Rest unchanged. MAN Ashley MCCORMACK MD DR: FOZIA/demetrius JOB#: [id number] / [id number]
--- NOTE | 2019-03-29 00:19 | PN ---
DATE: 03/26/2019 PSYCHIATRIC PROGRESS NOTE This late entry 03/26/2019 covers elements not covered in my initial note. SUBJECTIVE: I met with the patient in the evening. I saw him in the evening of 03/26/2019. The patient slept 4-1/2 hours previous night. He has been obsessing about wanting to go home, get out of here. Labs have to be repeated on Thursday and if they are stable, will transition on Thursday. REVIEW OF SYSTEMS: Positive for some tremors. No CV, , pulmonary, eye system symptoms on review. MENTAL STATUS EXAM: Reasonably oriented. Speech is coherent, abstraction fair, computation impaired, language function intact, attention span short. Mood and affect improved, less psychotic. LABORATORY DATA: Reviewed. IMPRESSION: Unchanged from initial note. PLAN: No change from initial note. MAN Ashley MCCORMACK MD DR: FOZIA/demetrius JOB#: [id number] / [id number]
[2019-03-29] MEDS: ALBUTEROL SULFATE 2.5 MG/3 ML NEBU. NEB PRN (01:33)
[2019-03-29] MEDS ORDERED: PRIM50TA24 PO (03:28)
[2019-03-29] MEDS ORDERED: BENZ0.5T32 PO (03:35)
[2019-03-29] MEDS ORDERED: CHOL500021 PO (03:40)
[2019-03-29] MEDS ORDERED: IPRA3AMP29 NEB (03:42)
[2019-03-29] MEDS ORDERED: MAG30ORA2 PO (03:44)
[2019-03-29] MEDS ORDERED: MAGN400O7 PO (03:45)
[2019-03-29] MEDS ORDERED: METH29OI TP (03:56)
[2019-03-29] MEDS ORDERED: MIRT15TA3 PO (04:02)
[2019-03-29] MEDS ORDERED: CLON0.5T11 PO (04:05)
[2019-03-29] MEDS ORDERED: HYDR100T24 PO (04:07)
[2019-03-29] MEDS ORDERED: ROPI0.5T PO (04:08)
[2019-03-29] MEDS ORDERED: RISP1TAB3 PO (04:13)
[2019-03-29 05:55] VITALS: BP 127/65
[2019-03-29] MEDS: IPRATRPIUM/ALBUTEROL 0.5/2.5MG 3 ML NEBU. NEB SCH ×2 (06:01→09:53)
[2019-03-29 08:13] VITALS: BP 127/65
[2019-03-29] MEDS: levETIRAcetam 500 MG TABLET PO SCH (08:13)
[2019-03-29] MEDS: rOPINIRole 0.5 MG TABLET. PO SCH ×2 (08:13→12:56)
[2019-03-29] MEDS: CARVEDILOL 12.5 MG TABLET PO SCH (08:13)
[2019-03-29] MEDS: PANTOPRAZOLE 40 MG TABLET. PO SCH (08:13)
[2019-03-29] MEDS: MAGNESIUM OXIDE 400 MG TABLET PO SCH (08:13)
[2019-03-29] MEDS: RIVASTIGMINE 9.5MG PATCH. TD SCH (08:14)
[2019-03-29] MEDS: risperiDONE 1 MG TABLET. PO SCH (08:14)
[2019-03-29] MEDS: ROFLUMILAST 500 MCG TABLET PO SCH (08:16)
[2019-03-29] MEDS: IPRATROPIUM BROMIDE 0.06% NASAL SPRAY 15ML BOTTLE NS SCH (08:16)
[2019-03-29] MEDS ORDERED: ALBU2.5V8 INH (10:53)
[2019-03-29] MEDS ORDERED: ALBU2.5V8 IH (10:53)
[2019-03-29] MEDS ORDERED: IPRA15SP NS (11:15)
--- NOTE | 2019-03-29 18:25 | PDOC ---
Exam Note: Sukhwinder Note: Please also refer to the separate dictated note~for this date of service dictated separately.~Patient seen individually. Discussed the patient with Nursing staff reviewed the chart.~Reviewed interim history and current functioning. Reviewed vital signs,~Labs/ Radiology~and current medications noted below. Continue current treatment with the changes noted in the dictated addendum note Assessment: Vital Signs: Vital Signs Date Time Temp Pulse Resp B/P (MAP) Pulse Ox O2 Delivery O2 Flow Rate FiO2 03/29/19 09:54 95 Room Air 03/29/19 08:13 77 127/65 03/29/19 05:55 98.7 20 I&O Intake and Output 03/29/19 07:00 Intake Total 1560 ml Balance 1560 ml Intake Oral 1560 ml # Voids 1 # Bowel Movements 1 Current Medications: Meds: Current Medications Acetaminophen (Tylenol) 650 mg PRN Q4HRS PRN PO fever; Start 03/15/19 at 17:15; Status Cancel Multi-Ingredient Ointment (Analgesic [place]) 1 tha PRN QID PRN TP MUSCLE PAIN; Start 03/15/19 at 18:00; Stop 03/29/19 at 13:50; Status DC Al Hydroxide/Mg Hydroxide (Mylanta Plus Xs) 15 ml PRN AFTMEALHC PRN PO DYSPEPSIA; Start 03/15/19 at 18:00; Stop 03/29/19 at 13:50; Status DC Magnesium Hydroxide (Milk Of Magnesia) 2,400 mg PRN QHS PRN PO CONSTIPATION; Start 03/15/19 at 18:00; Stop 03/29/19 at 13:50; Status DC Nicotine (Nicoderm Cq 14mg) 1 patch DAILY TD Last administered on 03/18/19at 08:26; Start 03/16/19 at 09:00; Stop 03/22/19 at 15:34; Status DC Risperidone (RisperDAL) 1 mg BIDWMEALS PO Last administered on 03/29/19at 08:14; Start 03/16/19 at 08:00; Stop 03/29/19 at 13:50; Status DC Risperidone (RisperDAL) 2 mg QHS PO Last administered on 03/21/19at 19:45; Start 03/15/19 at 21:00; Stop 03/22/19 at 17:14; Status DC Rivastigmine (Exelon) 1 patch DAILY TD Last administered on 03/29/19 08:14; Start 03/16/19 at 09:00; Stop 03/29/19 at 13:50; Status DC Trazodone HCl (Desyrel) 150 mg QHS PO Last administered on 03/22/19 19:24; Start 03/15/19 at 21:00; Stop 03/23/19 at 19:21; Status DC Acetaminophen (Tylenol) 650 mg PRN Q4HRS PRN PO PAIN / TEMP; Start 03/15/19 at 18:45; Stop 03/29/19 at 13:50; Status DC Albuterol/ Ipratropium (Duoneb) 3 ml TID NEB Last administered on 03/29/19 09:53; Start 03/15/19 at 21:00; Stop 03/29/19 at 13:50; Status DC Carvedilol (Coreg) 12.5 mg BIDWMEALS PO Last administered on 03/29/19 08:13; Start 03/16/19 at 08:00; Stop 03/29/19 at 13:50; Status DC Levetiracetam (Keppra) 500 mg BID PO Last administered on 03/29/19 08:13; Start 03/15/19 at 21:00; Stop 03/29/19 at 13:50; Status DC Magnesium Oxide (Magnesium Oxide) 400 mg TID PO Last administered on 03/17/19 13:23; Start 03/15/19 at 21:00; Stop 03/17/19 at 16:17; Status DC Pantoprazole Sodium (Protonix) 40 mg DAILY PO Last administered on 03/29/19 08:13; Start 03/16/19 at 09:00; Stop 03/29/19 at 13:50; Status DC Primidone (Mysoline) 25 mg TID PO Last administered on 03/19/19at 13:59; Start 03/15/19 at 21:00; Stop 03/19/19 at 14:01; Status DC Roflumilast (Daliresp) 500 mcg DAILY PO Last administered on 03/29/19 08:16; Start 03/16/19 at 09:00; Stop 03/29/19 at 13:50; Status DC Ipratropium [place] (Atrovent Nasal) 2 spray BID NS Last administered on 03/29/19 08:16; Start 03/15/19 at 21:00; Stop 03/29/19 at 13:50; Status DC Albuterol Sulfate (Ventolin) 2.5 mg PRN Q2HR PRN NEB SHORTNESS OF BREATH Last administered on 03/29/19 01:33; Start 03/16/19 at 19:45; Stop 03/29/19 at 13:50; Status DC Vitamin D (Vitamin D3) 50,000 unit WEEKLY PO Last administered on 03/24/19 07:49; Start 03/17/19 at 16:15; Stop 03/29/19 at 13:50; Status DC Magnesium Oxide (Magnesium Oxide) 800 mg TID PO Last administered on 03/29/19 08:13; Start 03/17/19 at 21:00; Stop 03/29/19 at 13:50; Status DC Ropinirole HCl (Requip) 0.5 mg TID PO Last administered on 03/29/19 12:56; Start 03/19/19 at 21:00; Stop 03/29/19 at 13:50; Status DC Clonazepam (KlonoPIN) 0.5 mg 1X ONCE PO Last administered on 03/19/19 23:52; Start 03/19/19 at 23:45; Stop 03/19/19 at 23:47; Status DC Clonazepam (KlonoPIN) 0.5 mg PRN QHS PRN PO INSOMNIA Last administered on 03/26/19 23:26; Start 03/20/19 at 12:00; Stop 03/29/19 at 13:50; Status DC Hydralazine HCl (Apresoline) 25 mg TID PO Last administered on 03/22/19 13:53; Start 03/20/19 at 16:30; Stop 03/22/19 at 15:35; Status DC Mirtazapine (Remeron) 7.5 mg QHS PO Last administered on 03/28/19 20:39; Start 03/21/19 at 21:00; Stop 03/29/19 at 13:50; Status DC Hydralazine HCl (Apresoline) 50 mg TID PO Last administered on 5/23/19at 14:03; Start 03/22/19 at 21:00; Stop 03/24/19 at 18:29; Status DC Risperidone (RisperDAL) 2.5 mg QHS PO Last administered on 03/28/19at 20:39; Start 03/22/19 at 21:00; Stop 03/29/19 at 13:50; Status DC Hydralazine HCl (Apresoline) 100 mg TID PO Last administered on 03/29/19at 08 :13; Start 03/24/19 at 21:00; Stop 03/29/19 at 13:50; Status DC Benztropine Mesylate (Cogentin) 0.5 mg QHS PO Last administered on 03/28/19at 21:28; Start 03/28/19 at 21:00; Stop 03/29/19 at 13:50; Status DC Active Scripts Active Reported Ipratropium [place] 15 Ml [place] 15 Ml NS BID Proair Hfa Inhaler (Albuterol Sulfate) 8.5 Gm Hfa.aer.ad 1 Puff INH PRN Q6HRS PRN Risperidone 1 Mg Tablet 2.5 Mg PO QHS Requip (Ropinirole Hcl) 0.5 Mg Tablet 0.5 Mg PO TID Hydralazine Hcl 100 Mg Tablet 100 Mg PO TID Clonazepam 0.5 Mg Tablet 0.5 Mg PO PRN QHS PRN Mirtazapine 15 Mg Tablet 7.5 Mg PO QHS Analgesic [place] (Methyl Salicylate/Menthol) 28 Gm Oint...g. 1 Tha TP PRN QID PRN Milk Of Magnesia (Magnesium Hydroxide) 400 Mg/5 Ml Oral.susp 2,400 Mg PO PRN QHS PRN Mag-Al Plus Xs Suspension (Mag Hydrox/Al Hydrox/Simeth) 30 Ml Oral.susp 15 Ml PO PRN AFTMEALHC PRN D3-50 (Cholecalciferol (Vitamin D3)) 50,000 Unit Capsule 50,000 Unit PO WEEKLY Benztropine Mesylate 0.5 Mg Tablet 0.5 Mg PO QHS Tylenol (Acetaminophen) 325 Mg Tablet 2 Tab PO PRN Q4HRS PRN Mag-Oxide (Magnesium Oxide) 400 Mg Tablet 800 Mg PO TID Risperdal (Risperidone) 1 Mg Tablet 1 Mg PO BIDWMEALS Keppra (Levetiracetam) 500 Mg Tablet 500 Mg PO BID EXELON 9.5mg/24hr (Rivastigmine) 1 Each Patch.td24 1 Patch TD DAILY Daliresp (Roflumilast) 500 Mcg Tablet 500 Mcg PO DAILY Coreg (Carvedilol) 6.25 Mg Tablet 2 Tab PO BIDWMEALS Duoneb 0.5-3(2.5) Mg/3 Ml (Albuterol/Ipratropium) 3 Ml Ampul.neb 3 Ml NEB TID Protonix (Pantoprazole Sodium) 40 Mg Tablet. 40 Mg PO DAILY I have reviewed the current psychotropics carefully including drug interactions. Risk benefit ratio favors no change other than as noted in my dictated progress note. Diagnosis: Problems: (1) Schizophrenia, paranoid type (2) Posttraumatic stress disorder (3) Vascular dementia with behavioral disturbance VEDA MCCORMACK MD March 29, 2019 18:25
--- NOTE | 2019-03-29 21:55 | DS ---
DATE OF DISCHARGE: 03/29/2019 DISCHARGE SUMMARY/PSYCHIATRIC PROGRESS NOTE This note covers elements not covered in my initial note of 03/29/2019. REASON FOR ADMISSION: Please refer to the admission history for details. Briefly, the patient is a 68-year-old male referred to us from [facility], referred by his primary care physician after the patient was extremely psychotic and attempted to walk in front of a moving vehicle. He was hearing voices, was eloping from the facility. He was medically stabilized on and then transferred to us. SIGNIFICANT FINDINGS AND CLINICAL COURSE: Following admission, the patient was seen daily individually by myself from a psychiatric standpoint, medical followup with Dr. Jenkins. He remained anxious, restless, paranoid. He was having some tremors. Cogentin was added 1 mg at bedtime, reduced later to 0.5 mg at bedtime and he seemed to stabilize on a combination of Risperdal 1 mg b.i.d. with meals 2.5 mg at bedtime, Exelon patch 9.5 mg a day, remained on Keppra 500 b.i.d., Remeron 7.5 mg at bedtime and Klonopin p.r.n. REVIEW OF SYSTEMS: Prior to discharge, 03/29/2019, no CV, , pulmonary, eye system symptoms on review. He did have some hand tremors. MENTAL STATUS EXAM: Oriented to himself and situation. Speech is coherent, abstraction fair, computation impaired, language function intact, attention span short. Mood and affect showing improvement. He did have some hyponatremia, but on further review, this is of longstanding duration. This hospitalization was extended briefly to help make sure this was stable prior to discharge. CONDITION AT DISCHARGE: Improved. No suicidal or homicidal ideation at discharge. FINAL DIAGNOSES: Schizoaffective disorder, bipolar type, mixed with psychotic features; anxiety disorder, unspecified; impulse control disorder; syndrome of inappropriate antidiuretic hormone, chronic with hyponatremia. Rest unchanged from admission. DISCHARGE MEDICATIONS: Please refer to the MRAD. DISCHARGE INSTRUCTIONS: Outpatient psychiatric and medical followup at the [facility]. Time for discharge day management greater than 30 minutes. VEDA MCCORMACK MD DR: FOZIA/demetrius JOB#: [id number] / [id number]
== END 2019-03-29 13:00 | DRG 885 ==
LOC: MERGE 16:35 → GEROPSY 16:35
PROVIDERS: ADMIT Psychiatry & Neurology Psychiatry; ATTEND Psychiatry & Neurology Psychiatry
DX: F25.0 Schizoaffective disorder, bipolar type (principal); E22.2 Syndrome of inappropriate secretion of antidiuretic hormone; F01.51 Vascular dementia, unspecified severity, with behavioral disturbance; I13.0 Hypertensive heart and chronic kidney disease with heart failure and stage 1 through stage 4 chronic kidney disease, or unspecified chronic kidney disease; J44.1 Chronic obstructive pulmonary disease with (acute) exacerbation; D50.9 Iron deficiency anemia, unspecified; F41.0 Panic disorder [episodic paroxysmal anxiety]; F43.10 Post-traumatic stress disorder, unspecified; F60.0 Paranoid personality disorder; F63.9 Impulse disorder, unspecified; G40.909 Epilepsy, unspecified, not intractable, without status epilepticus; G47.33 Obstructive sleep apnea (adult) (pediatric); I25.10 Atherosclerotic heart disease of native coronary artery without angina pectoris; M19.90 Unspecified osteoarthritis, unspecified site; I50.9 Heart failure, unspecified; K21.9 Gastro-esophageal reflux disease without esophagitis; N18.3 Chronic kidney disease, stage 3 (moderate); Z66 Do not resuscitate; Z79.899 Other long term (current) drug therapy; Z81.8 Family history of other mental and behavioral disorders; Z87.01 Personal history of pneumonia (recurrent); Z87.891 Personal history of nicotine dependence; Z91.5 Personal history of self-harm
CPT/HCPCS: 36415; 70450; 71046; 80053; 80061; 81001; 82306; 82533; 83036; 83540; 83550; 83735; 83930; 83935; 84436; 84443; 84480; 85025; 86592; 94640; 99406; J7613; J7620; 92610